=== PATIENT | male | born 1945 | race Caucasian/White ===

== ENCOUNTER → 2020-03-25 | Outpatient (CLI) | payer OTHER ==
[~2020-03-25] MED LIST: ATOR20 PO; CLON.1 PO; FURO40 PO; INSULANI SC; LEVFLO500 PO; LOSHYD PO; METF500 PO; METO50ER PO; POTA10T PO; VALS80 PO; VERA80 PO
[2020-03-25 18:48] LABS: Creatinine, Urine Random 57.8 mg/dL (27.00-270.00); Protein, Urine Random 47.3 mg/dL (0.0-11.9); Protein/Creat Ratio, Ur Random 0.8
== END | disposition home or self-care (01) ==
LOC: LAB 12:20 → LAB SHORT 12:20
PROVIDERS: Internal Medicine
DX: N18.32 Chronic kidney disease, stage 3b (principal)
CPT/HCPCS: 82570; 84156

== ENCOUNTER → 2020-12-10 | Outpatient (CLI) | payer OTHER | END | disposition home or self-care (01) | LOC: LAB SHORT 16:00 | DX: E11.29 Type 2 diabetes mellitus with other diabetic kidney complication (principal) | CPT/HCPCS: 82043 ==

== ENCOUNTER → 2020-12-23 | Outpatient (CLI) | payer OTHER | END | disposition home or self-care (01) | LOC: LAB SHORT 16:18 | DX: L08.0 Pyoderma (principal) | CPT/HCPCS: 87070; 87205 ==

== ENCOUNTER → 2020-12-30 | Outpatient (CLI) | payer OTHER ==
[2020-12-30 15:15] LABS: Creatinine, Urine Random 48.8 mg/dL (27.00-270.00); Protein, Urine Random 80.6 mg/dL (0.0-11.9); Protein/Creat Ratio, Ur Random 1.7
== END | disposition home or self-care (01) ==
LOC: LAB 13:28 → LAB SHORT 13:28
PROVIDERS: Internal Medicine
DX: N18.32 Chronic kidney disease, stage 3b (principal)
CPT/HCPCS: 82570; 84156

== ENCOUNTER 2021-07-22 13:22 | Inpatient (IN) | payer OTHER ==
[~2021-07-22] VITALS: Ht 167.6 cm; Wt 136.8 kg
[2021-07-22] MEDS ORDERED: HYDRA25 PO (14:20)
[2021-07-22] MEDS ORDERED: FARXIGA5 MG PO (14:21)
[2021-07-22] MEDS ORDERED: TORSE20 PO (14:21)
[2021-07-22] MEDS ORDERED: RYBELSUS7 MG PO (14:21)
[2021-07-22 14:32] LABS: BASOPHILS ABSOLUTE AUTO 0.12 K/mm3 (0.00-0.23); BASOPHILS PERCENT AUTO 1 % (0-2); EOSINOPHILS ABSOLUTE AUTO 0.06 K/mm3 (0.00-0.68); EOSINOPHILS PERCENT AUTO 0 % (0-6); Hematocrit 39.2 % (37.0-53.0); Hemoglobin 11.3 g/dL (13.5-17.5); IMMATURE GRAN PERCENT AUTO 1 % (0-1); LYMPHOCYTES ABSOLUTE AUTO 0.77 K/mm3 (0.84-5.20); LYMPHOCYTES PERCENT AUTO 3 % (21-46); MONOCYTES ABSOLUTE AUTO 0.83 K/mm3 (0.16-1.47); MONOCYTES PERCENT AUTO 3 % (4-13); Mean Corpuscular HGB 27.7 pg (26.0-34.0); Mean Corpuscular HGB Conc 28.8 g/dL (31.5-36.5); Mean Corpuscular Volume 96 fL (80-100); Mean Platelet Volume 10.3 fL (9.1-12.4); NEUTROPHILS ABSOLUTE AUTO 23.33 K/mm3 (1.96-9.15); NEUTROPHILS PERCENT AUTO 92 % (41-73); Platelet Count 273 K/mm3 (150-400); RDW Coefficient Variation 17.2 % (11.7-14.2); RDW Standard Deviation 60.1 fL (35.1-46.3); Red Blood Cell Count 4.08 M/mm3 (4.30-5.90); White Blood Cell Count 25.31 K/mm3 (4.00-11.30)
[2021-07-22 15:00] LABS: Albumin/Globulin Ratio 0.4 (0.8-1.8); Bilirubin, Total 0.4 mg/dL (0.1-1.0); Bun/Creatinine Ratio 20.5 (12.0-20.0); Calcium, Blood 8.3 mg/dL (8.5-10.1); Creatinine, Blood 4.05 mg/dL (0.60-1.20); Globulin, Blood 5.4 g/dL (2.2-4.0); Potassium, Blood 7.2 mmol/L (3.5-5.5); Total Protein, Blood 7.4 g/dL (6.4-8.2)
[2021-07-22 15:09] LABS: Influenza A Negative (NEGATIVE); Influenza B Negative (NEGATIVE)
[2021-07-22 17:54] LABS: SARS-Cov-2 (COVID-19) PCR, MMC NEGATIVE (NEGATIVE)
[2021-07-22 20:41] LABS: Albumin, Blood 2.1 g/dL (3.4-5.0); Anion Gap 8 mmol/L (6-16); Blood Urea Nitrogen 82 mg/dL (8-24); Bun/Creatinine Ratio 20.7 (12.0-20.0); CO2, Blood 20 mmol/L (21-32); Calcium, Blood 8.1 mg/dL (8.5-10.1); Chloride, Blood 105 mmol/L (98-108); Creatinine, Blood 3.97 mg/dL (0.60-1.20); Glomerular Filtration Rate 15 (60-); Glucose, Blood 123 mg/dL (70-99); Phosphorus, Blood 6.2 mg/dL (2.5-4.9); Potassium, Blood 6.6 mmol/L (3.5-5.5); Sodium, Blood 133 mmol/L (136-145)
[2021-07-22 23:57] LABS: Source, Urine Foley catheter
--- NOTE | 2021-07-23 | NUR ---
PT ARRIVES TO ROOM ICU 2 FROM ED AT 2323. PT SLIDE TRANSFERRED TO BED FROM [facility]. WITH MINIMINAL EXERTION, PT DESATURATES TO 85 PERCENT. DID INCREASE O2 FLOW TO 15 LITERS PER OXYMIZER TO MAINTAIN > 90 PERCENT SATURATION. WILL TITRATE DOWN ABLE. PT'S TO ROOM. UPDATE ON PT GIVEN TO . PT HAS MOANING/GRUNTING NOTED. STATES THAT THIS IS TYPICAL FOR PT DAY AND NIGHT. PT STATES THAT HIS LEGS HAVE BEEN PAINFUL FOR OVER 5 YEARS. NOTED: PT HAS OPEN AREAS IN SKIN WITH COARSE WRINKLES. ELEPHANT TYPE SKIN. WILL DO WOUND PICS. WILL REVIEW CHART AND PLAN OF CARE FOR THIS PT.
[2021-07-23 00:02] LABS: Bilirubin, Urine Neg (Neg); Blood, Urine 3+ (Neg); Glucose Qualitative, Urine Neg (Neg); Ketones, Urine Neg (Neg); Leukocyte Esterase, Urine 1+ (Neg); Nitrite, Urine Neg (Neg); Protein, Urine Neg (Neg); Urobilinogen, Urine NORM (Normal)
[2021-07-23 00:16] LABS: Appearance, Urine Clear (Clear); Color, Urine Yellow (P-Yellow)
[2021-07-23 00:17] LABS: Bacteria Few /hpf; Red Blood Cells, Urine 0-2 /hpf (0-2); Squamous Epithelial Cells Not Seen /hpf (Few)
[2021-07-23] MEDS ORDERED: Mirapex1 MG PO (00:27)
[2021-07-23] MEDS ORDERED: TOUJEO SOL300 UNIT/2 SC (00:35)
[2021-07-23] MEDS ORDERED: NOVOLOG FL100 UNIT/3 SC (00:37)
[2021-07-23] MEDS ORDERED: LOSARTAN POTAS100 M1 PO (00:39)
[2021-07-23 00:52] LABS: Creatinine, Blood 3.86 mg/dL (0.60-1.20); Potassium, Blood 6.3 mmol/L (3.5-5.5)
[2021-07-23 03:08] LABS: BASOPHILS ABSOLUTE AUTO 0.08 K/mm3 (0.00-0.23); BASOPHILS PERCENT AUTO 1 % (0-2); EOSINOPHILS ABSOLUTE AUTO 0.04 K/mm3 (0.00-0.68); EOSINOPHILS PERCENT AUTO 0 % (0-6); Hematocrit 36.8 % (37.0-53.0); Hemoglobin 10.9 g/dL (13.5-17.5); IMMATURE GRAN ABSOLUTE AUTO 0.05 K/mm3 (0.00-0.10); IMMATURE GRAN PERCENT AUTO 0 % (0-1); LYMPHOCYTES ABSOLUTE AUTO 0.92 K/mm3 (0.84-5.20); LYMPHOCYTES PERCENT AUTO 6 % (21-46); MONOCYTES ABSOLUTE AUTO 0.81 K/mm3 (0.16-1.47); MONOCYTES PERCENT AUTO 6 % (4-13); Mean Corpuscular HGB 27.9 pg (26.0-34.0); Mean Corpuscular HGB Conc 29.6 g/dL (31.5-36.5); Mean Corpuscular Volume 94 fL (80-100); Mean Platelet Volume 10.2 fL (9.1-12.4); NEUTROPHILS ABSOLUTE AUTO 12.78 K/mm3 (1.96-9.15); NEUTROPHILS PERCENT AUTO 87 % (41-73); Platelet Count 258 K/mm3 (150-400); RDW Coefficient Variation 17.2 % (11.7-14.2); RDW Standard Deviation 59.2 fL (35.1-46.3); White Blood Cell Count 14.68 K/mm3 (4.00-11.30)
[2021-07-23 03:26] LABS: Magnesium, Blood 2.6 mg/dL (1.6-2.4)
[2021-07-23 03:30] LABS: Anion Gap 9 mmol/L (6-16); Blood Urea Nitrogen 84 mg/dL (8-24); Bun/Creatinine Ratio 21.9 (12.0-20.0); CO2, Blood 22 mmol/L (21-32); Calcium, Blood 7.8 mg/dL (8.5-10.1); Chloride, Blood 103 mmol/L (98-108); Creatinine, Blood 3.84 mg/dL (0.60-1.20); Glomerular Filtration Rate 16 (60-); Glucose, Blood 130 mg/dL (70-99); Phosphorus, Blood 6.1 mg/dL (2.5-4.9); Potassium, Blood 6.1 mmol/L (3.5-5.5); Sodium, Blood 134 mmol/L (136-145); Vancomycin, Random 25.1 ug/mL
--- NOTE | 2021-07-23 05:20 | NUR ---
ORDER RECEIVED FOR CPAP. PT HAS CPAP AT HOME AND DOES NOT WEAR THIS. WHEN ASLEEP, PT DEMONSTRATES A VERY PRONOUNCED SLEEP APNEA. WITH CPAP, PT IS RESTING COMFORTABLY. NO DISTRESS TO NOTE. DR JACOB HAS BEEN INTERGAL IN MANAGING PT'S ELECTROLYTES AND FLUID BALANCE. HE HAS COME IN TO SEE PT. WILL CONTINUE TO MONITOR.
[2021-07-23 06:50] LABS: Albumin, Blood 1.9 g/dL (3.4-5.0); Anion Gap 8 mmol/L (6-16); Blood Urea Nitrogen 84 mg/dL (8-24); Bun/Creatinine Ratio 21.4 (12.0-20.0); CO2, Blood 27 mmol/L (21-32); Calcium, Blood 8.3 mg/dL (8.5-10.1); Chloride, Blood 102 mmol/L (98-108); Creatinine, Blood 3.92 mg/dL (0.60-1.20); Glomerular Filtration Rate 15 (60-); Glucose, Blood 122 mg/dL (70-99); Phosphorus, Blood 6.5 mg/dL (2.5-4.9); Sodium, Blood 137 mmol/L (136-145)
--- NOTE | 2021-07-23 09:22 | NUR ---
AM NOTE... ASSUMED CARE OF PT AT 0700, THE PT IS A&Ox 2 ABLE TO STATE HIS NAME AND AND THAT HE IS IN THE HOSPITAL. THE PT WAS ON CPAP WITH 10L BLEED IN WITH O2 SATS 90-94% L/S DIM T/O. THE PT IS IN ST IN THE LOW 100'S BP IS SOFT BUT STABLE WITH MAPS >65. THE PT'S BLE ARE VERY RED AND SWOLLEN WITH FLAKEY/CRACKED SKIN. THE BLE ARE VERY PAINFUL TO TOUCH. BT PRESENT AND HYPOACTIVE, ABD IS LARGE, SOFT AND NONTENDER TO PALPATION. THE PT'S VELASCO IS PATENT AND DRAINING TO GRAVITY. THE PT WAS SLEEPING WELL UNTIL APROX 0900 WHEN HE WOKE UP AND PULLED OFF THE CPAP MASK AND ATTEMPTED TO PULL THE REST OF THE LEADS OFF. THE PT'S O2 SATS DROPPED QUICKLY DOWN TO THE MID 80'S, THE CPAP MASK WAS PLACED BACK ON THE PT UNTIL HIS O2 SATS COULD RECOVER THEN HE WAS PLACED ON AN OXYMIZER AT 10L THIS WAS TITRATED DOWN TO 8L WITH O2 SATS >90%. WILL CONTINUE TO MONITOR.
[2021-07-23 11:04] LABS: Lactate Dehydrogenase (Ld),Bld 289 U/L (100-240)
[2021-07-23 11:08] LABS: Anion Gap 12 mmol/L (6-16); Blood Urea Nitrogen 84 mg/dL (8-24); Bun/Creatinine Ratio 22.7 (12.0-20.0); CO2, Blood 23 mmol/L (21-32); CPK Creatine Kinase 1167 U/L (39-308); Calcium, Blood 8.1 mg/dL (8.5-10.1); Chloride, Blood 101 mmol/L (98-108); Glomerular Filtration Rate 16 (60-); Glucose, Blood 105 mg/dL (70-99); Phosphorus, Blood 6.9 mg/dL (2.5-4.9); Potassium, Blood 5.9 mmol/L (3.5-5.5); Sodium, Blood 136 mmol/L (136-145)
--- NOTE | 2021-07-23 13:16 | NUR ---
AM NOTE: ASSUMED CARE OF PATIENT AT 0700. THE PT IS CURRENTLY IS ON CPAP WITH 10 LITERS OF O2 BEIG DILIVERED. THE PT IS ALERT AND ORIENTED AND IS ABLE TO FOLLOW COMMANDS. THE PT'S HR IS IN THE 100'S AND IS IN SINUS TACHYCARDIA; SBP ARE IN THE 100'S. THE PT TOOK HIS CPAP MASK OFF AND THE PT WAS PLACED ON AN OXIMIZER AT 8 L O2. THE PT HAS O2 LEVELS 90<, THE PT HAS A HX OF COPD. THE PT HAS SIGNIFICANT CELLULITIS ON THE BLE THAT CAUSES A LOT OF PAIN FOR THE PT. THE PT IS CONSTANTLY MOANING IN PAIN, AND THE PT'S STATES THAT THE MOANING IS NORMAL BEHAVIOR FOR THE PT PRIOR TO BEING IN THE HOSPITAL. THE PT WAS MEDICATED PER EMAR. THE PT HAS AN INDWELLING CATHETER IN PLACE, PATENT AN DRAINGING TO GRAVITY. AT 1130, THE PT RECIEVED A COMPLETE BED BATH AND LINEN CHANGE. PHOTOS WERE TAKEN OF ALL SKIN ISSUES THAT THE PT HAS HAD PRIOR TO ADMISSION. THE PT WAS ABLE TO PARTICIPATE IN BED MOBILITY A LITTLE [place] GRABBING THE SIDE RAILS. AFTER THE BED BATH, THE PT'S ENTERED THE ROOM AND WAS ABLE TO GIVE MORE INFOMATION REGADING THE PT'S BASELINE ABILITY TO COMPLETE ADL'S. THE STATES THAT THE PT RESIDES IN RECLINER IN THE LIVING ROOM AND ONLY GETS UP TO WALK TO THE RESTROOM. THE STATES THAT THE PT GETS FATIGUED EASILY WHEN AMBULATING LONG DISTANCES. THE PT STATES THAT HE HAS NO ASSISTIVE WALKING DEVICE. WILL CONTINUE TO MONITOR.
--- NOTE | 2021-07-23 16:12 | NUR ---
WOUND ASSESSMENT AND PHOTO IN HARD CHART. DRESSING ORDERS IN [facility]. REFERRAL TO WOUND CLINIC AFTER DC FOR FOLLOW UP CARE
--- NOTE | 2021-07-23 17:50 | NUR ---
SHIFT SUMMARY.... NO ACUTE NEGATIVE CHANGES NOTED THIS SHIFT. THE PT HAS BEEN ON 6L OXYMIZER FOR MOST OF THIS SHIFT, THIS WAS TITRATED DOWN FROM 10L AT THE START OF THIS SHIFT. THIS EVENING THIS WAS CHANGED TO A REGULAR NASAL CANNULA AT 5L WITH O2 SATS >90%. THE WOUND CARE NURSE CAME TO ASSESS THE PT AND PLACED WOUND CARE ORDERS AND DRESSINGS WERE PLACED PER THESE ORDERS. THE PT'S WAS AT THE BEDSIDE FOR MOST OF THIS SHIFT. BOTH PT AND HIS WERE EDUCATED ON THE IMPORTANCE OF THE PT DOING WHAT ADLs HE CAN DO ON HIS OWN TO HELP PERVENT FURTHER LOSS OF FUNCTION. THE PT HAS BEEN MEDICATED FOR PAIN PER EMAR, WHEN MEDICATED THE PT BECOMES DROWSY AND FALLS ASLEEP, CPAP PLACED ON THE PT WHILE SLEEPING. THE PT'S BPs CONTIUE TO BE A LITTLE SOFT BUT MAPS HAVE BEEN >60. CALL LIGHT IN REACH WILL CONTINUE TO MONITOR UNTIL REPORT IS GIVEN TO ONCOMING RN.
--- NOTE | 2021-07-23 18:30 | NUR ---
SHIFT SUMARRY: PT'S OXYGEN LEVELS HAVE BEEN TITRATED DOWN THROUGHOUT THE SHIFT TO 5 LITERS; THE PT SWITCHES BACK AND FORTH FROM THE NASAL CANNULA AND THE CPAP, DEPENDENT ON WHETHER HE IS SLEEPING. THE PT HAS HAD RR IN THE 20-24 AND THE O2 90<. THE PT HAS HAD SBP IN THE 100'S AND HR IN THE 100'S. THE PT HAD A BEDSIDE SWALLOW EVAL CONDUCTED THIS SHIFT AND PASSED. THE PT HAS BEEN SAFELY DRINKING WATER THROUGH A STRAW. AT MEAL TIMES, THE PT HAS NOT EATEN A LOT. THE PT HAS HYPERACTIVE BOWEL SOUNDS PRESENT AND THERE IS NO ABD TENDERNESS UPON PALPATION. THE PT CURRENTLY HAS AN INDWELLING CATHETER IN PLACE AND DRAINING TO GRAVITY. THE PT HAD A COMPLETE BED BATH AND LINEN CHANGE THIS SHIFT. AT THIS TIME, PICTURES OF ALL WOUNDS WERE TAKEN AND HAVE BEEN PLACED IN THE PT'S CHART. WOUND CARE CONSULT WAS PLACED AND YAAKOV SCHILLING CAME TO CONDUCT THE WOUND ASSESSMENT AND PLACE WOUND CARE REGIMEN IN PLACE. THE PT HAS CHRONIC PIN ASSOCIATED WITH CELLULITIS IN THE BLE. THE PT HAS LIMITED BED MOBILITY AND STRUGGLES TO PARTICIPATE IN PT CARE. PT'S AT BEDSIDE MOST OF THE AFTERNOON, AND ALL HER QUESTIONS WERE ANSWERED. WILL CONTINUE TO MONITOR UNTIL ONCOMING NIGHT NURSE.
--- NOTE | 2021-07-23 19:26 | NUR ---
ASSESSMENT/ASSUMED CARE PT SITTING UP IN BED WITH O2 AT 4 LITERS VIA CPAP. PT OPENS EYES TO PAINFUL STIMULI AND MOUTH CARE ONLY. NOT FOLLOWING INSTRUCTIONS. PT IS HYPOTENSIVE AND FLUID BOLUS IS INFUSING. STARTED ON LEVOPHED WILL TITIRATE PER MAP. LUNGS DECREASED THROUGHOUT. HEART RATE SINUS 80-90'S. GENERAL EDEMA NOTED. BT HYPOACTIVE. IV 20G TO RIGHT AC WITH 1/2 NS AT 50 ML/HR AND IV 20G TO LEFT FOREARM WITH NS BOLUS AND LEVOPHED. VELASCO CATH PATENT AND DRAINING CLEAR YELLOW URINE. REPOSITION TO RIGHT WITH HOB UP. BILAT LOWER EXT WITH DRSG FROM KNEES TO ANKLES INTACT. AT BEDSIDE. WILL CALL DR MILLAN REGARDING CENTRAL LINE PLACEMENT.
--- NOTE | 2021-07-23 19:52 | NUR ---
CALL TO MD CALL TO DR MILLAN REGARDING HYPOTENSION. LEVOPHED CURRENTLY UP TO 6 MCQ/MIN DUE TO BP 75/47 MAP 56. FLUID BOLUS COMPLETE. DR MILLAN COMING TO PLACE CENTRAL LINE.
--- NOTE | 2021-07-23 21:33 | NUR ---
PT SITTING UP IN BED WITH OXIMZER ON AT 6 LITERS TALKING WITH . BP IMPROVED AND PT MENTATION IMPROVED. PT ABLE TO FOLLOW INSTRUCTION AND SPEECH IS CLEAR AND APPROP.
--- NOTE | 2021-07-23 22:45 | NUR ---
PT PLACED ON CPAP WITH 6 LITERS O2. WENT HOME FOR THE NIGHT. PT ATE SNACK SANDWICH AND ICE CREAM
--- NOTE | 2021-07-23 22:55 | NUR ---
BP 96/40 MAP 56 HEART RATE 80. LEVOPHED UP TO 10 MCQ/MIN. NS 500 ML BOLUS STARTED
--- NOTE | 2021-07-23 23:31 | NUR ---
CALL TO DR NAJERA REGRADING LEVOPHED UP TO 12 MCQ/MIN AND PT HAS RECEIVED 1.5 LITER BOLUS. ORDER OBTAINED FOR VASOPRESSIN.
--- NOTE | 2021-07-24 00:15 | NUR ---
REASSESSMENT PT SLEEPING WITH CPAP ON. REPOSITIONED WITH LIFT. HOLDING ON STARTING VASOPRESSIN FOR NOW DUE TO BP 142/61 MAP 84. WILL CONT TO MONITOR. ORAL CARE DONE.
--- NOTE | 2021-07-24 01:28 | NUR ---
CPAP PT PULLED OFF CPAP. STATED,"I NEED A BREAK". PLACED ON OXMIZER AT 6 LITERS
--- NOTE | 2021-07-24 02:42 | NUR ---
PT MOANING AND C/O PAIN TO LEGS, MED WITH FENTANYL 25 MCQ. GEL PAD PLACED TO NOSE TO PROTECT FROM CPAP MASK. O2 INCREASE TO 10 LITERS VIA CPAP.
--- NOTE | 2021-07-24 02:43 | NUR ---
PAIN PT MOANING AND RESTLESS. MED WITH FENTANYL 25 MCQ
[2021-07-24 03:36] LABS: BASOPHILS ABSOLUTE AUTO 0.06 K/mm3 (0.00-0.23); BASOPHILS PERCENT AUTO 1 % (0-2); EOSINOPHILS ABSOLUTE AUTO 0.59 K/mm3 (0.00-0.68); EOSINOPHILS PERCENT AUTO 6 % (0-6); Hematocrit 34.6 % (37.0-53.0); Hemoglobin 10.4 g/dL (13.5-17.5); IMMATURE GRAN ABSOLUTE AUTO 0.04 K/mm3 (0.00-0.10); IMMATURE GRAN PERCENT AUTO 0 % (0-1); LYMPHOCYTES ABSOLUTE AUTO 1.21 K/mm3 (0.84-5.20); LYMPHOCYTES PERCENT AUTO 13 % (21-46); MONOCYTES ABSOLUTE AUTO 0.72 K/mm3 (0.16-1.47); MONOCYTES PERCENT AUTO 7 % (4-13); Mean Corpuscular HGB Conc 30.1 g/dL (31.5-36.5); Mean Corpuscular Volume 93 fL (80-100); NEUTROPHILS ABSOLUTE AUTO 7.06 K/mm3 (1.96-9.15); NEUTROPHILS PERCENT AUTO 73 % (41-73); Platelet Count 243 K/mm3 (150-400); RDW Standard Deviation 58.7 fL (35.1-46.3); Red Blood Cell Count 3.71 M/mm3 (4.30-5.90); White Blood Cell Count 9.68 K/mm3 (4.00-11.30)
[2021-07-24 03:55] LABS: Albumin, Blood 1.7 g/dL (3.4-5.0); Albumin/Globulin Ratio 0.3 (0.8-1.8); Bilirubin, Total 0.3 mg/dL (0.1-1.0); Bun/Creatinine Ratio 22.9 (12.0-20.0); Calcium, Blood 7.7 mg/dL (8.5-10.1); Creatinine, Blood 3.32 mg/dL (0.60-1.20); Globulin, Blood 4.9 g/dL (2.2-4.0); Magnesium, Blood 2.4 mg/dL (1.6-2.4); Potassium, Blood 4.5 mmol/L (3.5-5.5); Total Protein, Blood 6.6 g/dL (6.4-8.2)
--- NOTE | 2021-07-24 05:48 | NUR ---
PAIN TO LEGS PT C/O PAIN TO BILAT LOWER EXT WITH BURNING, ITCHING AND NUMBNESS. PT HAS BEEN MED WITH FENTANYL AND TYLENOL. CALL TO DR NAJERA, RECEIVED ORDER FOR GABAPENTIN 100MG BID WITH FIRST DOSE NOW.
--- NOTE | 2021-07-24 05:58 | NUR ---
SHIFT SUMMARY PT SITTING UP IN BED WATCHING TV. C/O PAIN TO BACK AND LOWER EXT DURING THE NIGHT. MED WITH FENTANYL, TYLENOL AND GABAPENTIN. REPOSITIONED Q2HRS. PT ON OXIMYZER 10 LITERS AT THIS TIME, SPO2 96%. USED CPAP MOST OF THE NIGHT WITH 4-10 LITERS O2. HEART RATE HAS BEEN 80-90'S WITH PVC'S. PT GIVEN 1.5 LITER BOLUS DURING THE NIGHT AND STARTED ON LEVOPHED DUE TO HYPOTENSION. LEVOPHED HAS BEEN UP TO 12 MCQ/MIN NOW TITRATED DOWN TO 6 MCQ/MIN MONITORING TO KEEP MAP GREATER THAN 65. CENTRAL LINE PLACED BY DR ANGEL FOR LEVOPHED WITHOUT DIFFICULTY. PT ON 1/2 NS AT 50 ML/HR, NS AT 10 ML/HR AND LEVOPHED AT 6 MCQ/MIN. VELASCO CATH PATENT DRAINING CLEAR YELLOW URINE. DRSG TO BILAT LOWER EXT INTACT. REPORT TO ON COMING NURSE
--- NOTE | 2021-07-24 09:38 | NUR ---
ASSUMED CARE OF PT, REPORT RCV'D FROM TONIE DOUGHERTY. PT AROUSES TO VERBAL STIMULATION, QUICKLY FALLS BACK TO SLEEP. ORIENTED TO SELF, PLACE, FOLLOWS COMMANDS WEAKLY. RESPONDS VERBALLY TO QUESTIONS, MUMBLED SPEECH. LIVESTOCK SHOWMAN CONSULTED PER DR. MONAE REQUEST. PT TAKEN OFF CPAP AND PLACED ON 5L NC, SATS> 90% AT THIS TIME. LEVOPHED DECREASED FROM 6 TO 5 MCG/MIN. VSS AT THIS TIME. SEE FULL SHIFT ASSESSMENT.
[2021-07-24 10:52] LABS: PCO2 Arterial 47.3 mmHg (35-45); PO2 Arterial 112 mmHg (80-100); pH Blood Arterial 7.33 (7.35-7.45)
--- NOTE | 2021-07-24 15:30 | NUR ---
[facility] RECEIVED FOR SUPPORT AND ADV CARE PLANNING ASSIST TO . EMR reviewed and case conferenced with pt's bedside RN prior to visit. Pt was being prepped for CT so and I visited in ICU guest area. exhibits and expresses extreme CG fatigue and burnout. 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 RN feels pt may be more demanding and less independent with ADL's when is present because she feels guilty and does what he asks, when at times, he could do more for himself independently, ie feeding himself. confirms this to me. Discussed short and shelter advanced care planning. She reports that pt wants CPR if needed. We discussed process of a code and the usual need for ventilation if cardiac function restored. started shaking her head no and said no ventilator. Time spent listening, supporting, encouraging self care, including maintaining job if that gave her some respite and stress reduction. I encouraged her to rest as much as possible while pt is in the hospital. We reviewed best case and worst case scenarios from d/c with rehab services to difficult decision making. Booklet given, Hard Choices for [place] [employer]. I encouraged her to read Chap 1 on CPR to generate questions for providers and conversation with her re: what is best for him at this time. Plan made with for me to stop in daily for the next few days and thru the weekend. expressed appreciation for the visit and conversation and planned f/u visits. If pt returns home for ongoing homecare, will need respite. She states Jason thinks she should quit her job and become a paid caregiver. We talked about the requirements for that and meeting with a CM to explore community resources for assist at home. Pt is not a and they do not have medicaid, OHP or an APD tube filler at this time. She states they spoke with a volunteer at [facility] who did not believe they would qualify for medicaid but finances are a current worry as pt had become an online gambler. Plan to review with CM so they can visit and assist with d/c planning support also.
--- NOTE | 2021-07-24 16:00 | NUR ---
PT REPORTING BILATERAL LOWER EXTREMITY PAIN REQUESTING THIS NURSE REMOVE HIS BANDAGES. REVIEWED IMPORTANCE OF KEEPING LEGS CLEAN AND WRAPPED. MEDICATED PER EMAR WITH VERY LITTLE RELIEF. DR. TIMMONS AT BEDSIDE, REVIEWED NEUROPATHY PAIN. INCREASED GABAPENTIN TO 200 MG TID. REVIEWED PLAN WITH PT AND PT'S .
--- NOTE | 2021-07-24 17:14 | NUR ---
SHIFT SUMMARY PT MUCH MORE ALERT THIS AFTERNOON. PT CONTINUES TO REPORT UNCONTROLLED BILATERAL LEG PAIN HE DESCRIBES "BURNING". PT ON CPAP WITH PRESSURES 10-20, 3L BLEED IN WHILE SLEEPING/NAPPING AND 5LNC WHILE AWAKE. AT BEDSIDE T/O DAY. LEVOPHED @ 2 MCG/MIN TO MAINTAIN MAP>65. 1500 ML URINARY OUTPUT FROM CATHETHER. SEE PREVIOUS NOTES FROM THIS SHIFT. WILL REPORT TO ONCOMING NURSE.
--- NOTE | 2021-07-24 19:20 | NUR ---
ASSESSMENT/ASSUMED CARE PT SITTING UP IN BED WATCHING TV. C/O BEING CHINTAN, STATES,"I DIDN'T EAT DINNER BECAUSE I HAD VISITORS". PT GIVEN SANDWICH. LUNGS DECREASED THROUGHOUT ON 5 LITERS O2 VIA NC. ASSISTED WITH IS. RT GIVING PT EDUCATION REGARDING IS. HEART RATE REGULAR, BP STABLE ON LEVOPHED AT 2 MCQ/MIN WILL TITRATE TO KEEP MAP GREATER THAN 65. CENTRAL LINE TO RIGHT IJ DRSG COMING UP, WILL CHANGE DRSG. NS AT 10 ML/HR, LEVOPHED AT 2MCQ/MIN AND 1/2 NS AT 50 ML/HR VIA CENTRAL LINE. BT+ ABD OBESE, ROUND AND FIRM. DENIES N/V. IV 20G TO LEFT FOREARM SITE CLEAR, FLUSHED WITHOUT DIFFICULTY. VELASCO CATH PATENT DRAINING CLEAR YELLOW URINE. BILAT LOWER EXT WITH DRSG, WILL CHANGE DRSG THIS EVENING. PT REPOSITIONED WITH LIFE. AT BEDSIDE
--- NOTE | 2021-07-24 20:30 | NUR ---
RT EDUCATION RT WORKING WITH PT AND REGARDING COPD AND BREATHING EXERCISES.
--- NOTE | 2021-07-24 21:12 | NUR ---
DID CARDIOPULMONARY EDUCATION WITH PT AND SEE PROCESS INTERVENTION NOTE ON THIS PT AND ARE SEMI INTERESTED IN CARDIOPULMONARY REHAB AND WOULD LIKE TO DISCUSS FURTHER AT DISCHARGE.
--- NOTE | 2021-07-24 21:45 | NUR ---
DRSG CHANGES CENTRAL LINE DRSG CHANGE, SITE CLEAR. PT SHAVED. BILAT LOWER EXT DRSG CHANGED. LINEN CHANGED AND PT TURNED. GIVEN ANA PER REQUEST.
--- NOTE | 2021-07-24 22:47 | NUR ---
CPAP PT GOING TO SLEEP, PLACED ON CPAP WITH 5 LITERS O2.
[2021-07-25 04:36] LABS: BASOPHILS ABSOLUTE AUTO 0.07 K/mm3 (0.00-0.23); BASOPHILS PERCENT AUTO 1 % (0-2); EOSINOPHILS ABSOLUTE AUTO 1.01 K/mm3 (0.00-0.68); EOSINOPHILS PERCENT AUTO 11 % (0-6); Hematocrit 35.8 % (37.0-53.0); Hemoglobin 10.5 g/dL (13.5-17.5); IMMATURE GRAN ABSOLUTE AUTO 0.05 K/mm3 (0.00-0.10); IMMATURE GRAN PERCENT AUTO 1 % (0-1); LYMPHOCYTES ABSOLUTE AUTO 1.06 K/mm3 (0.84-5.20); LYMPHOCYTES PERCENT AUTO 12 % (21-46); MONOCYTES ABSOLUTE AUTO 0.77 K/mm3 (0.16-1.47); MONOCYTES PERCENT AUTO 9 % (4-13); Mean Corpuscular HGB 27.7 pg (26.0-34.0); Mean Corpuscular HGB Conc 29.3 g/dL (31.5-36.5); Mean Corpuscular Volume 95 fL (80-100); Mean Platelet Volume 10.1 fL (9.1-12.4); NEUTROPHILS ABSOLUTE AUTO 6.05 K/mm3 (1.96-9.15); NEUTROPHILS PERCENT AUTO 67 % (41-73); Platelet Count 243 K/mm3 (150-400); RDW Coefficient Variation 16.9 % (11.7-14.2); RDW Standard Deviation 58.3 fL (35.1-46.3); Red Blood Cell Count 3.79 M/mm3 (4.30-5.90); White Blood Cell Count 9.01 K/mm3 (4.00-11.30)
[2021-07-25 04:57] LABS: Albumin, Blood 1.7 g/dL (3.4-5.0); Anion Gap 7 mmol/L (6-16); Blood Urea Nitrogen 60 mg/dL (8-24); Bun/Creatinine Ratio 22.7 (12.0-20.0); CO2, Blood 27 mmol/L (21-32); Calcium, Blood 8.1 mg/dL (8.5-10.1); Chloride, Blood 105 mmol/L (98-108); Creatinine, Blood 2.64 mg/dL (0.60-1.20); Glomerular Filtration Rate 25 (60-); Glucose, Blood 141 mg/dL (70-99); Phosphorus, Blood 5.6 mg/dL (2.5-4.9); Potassium, Blood 4.5 mmol/L (3.5-5.5); Sodium, Blood 139 mmol/L (136-145)
--- NOTE | 2021-07-25 04:58 | NUR ---
PT OFF BIPAP AND ON 5 LITERS VIA NC. PT TAKING PO FLUIDS
--- NOTE | 2021-07-25 05:40 | NUR ---
SHIFT SUMMARY PT RESTING QUIETLY DURING THE NIGHT. TURNED Q2HRS USING CEILING LIFT. PT USED CPAP WITH 5 LITERS O2 DURING THE NIGHT. SPO2 95-100%. HEART RATE REGULAR IN THE 80-90'S. BP STABLE ON LEVOPHED, TITRATING TO KEEP MAP GREATER THAN 65. CURRENTLY LEVOPHED AT 4 MCQ/MIN VIA CENTRAL LINE. NS AT 10 ML/HR AND 1/2 NS AT 50 ML/HR VIA CENTRAL LINE. CENTRAL LINE DRSG CHANGED, SITE CLEAR. PT TAKING PO WITHOUT DIFFICULTY. VELASCO CATH PATENT DRAINING YELLOW URINE. BILAT LOWER EXT DRSG CHANGED SEE WOUND CARE. PT ENCOURAGED TO USE IS. RT GAVE EDUCATION REGARDING COPD, CHF AND PULM TOILET WITH PT AND . PT ENCOURAGED TO ASSIST WITH TURNING AND MOVING. PT MED ONCE DURING THE NIGHT WITH FENTANYL 50 MCQ FOR C/O PAIN "ALL OVER 12/01", WITH GOOD RESULTS. REPORT TO ON COMING NURSE
--- NOTE | 2021-07-25 10:42 | NUR ---
Case conferenced with RN and CM prior to visit and update also obtained per IDT ICU meeting. at bedside appears more rested and relaxed. Pt in chair eating breakfast and conversant. He is alert and oriented but demonstrates poor memory regarding medications explained and given to him earlier this am per RN. Pt reports severe burning pain of leatha LE that limits his ability to be more mobile. Review of EMR and eMAR with RN shows pt was started on gabapentin this admission with an increase in dosing tid since start of RX. Pt also has tylenol and narcotic orderded for pain that has been utilized early this am prn per eMAR. I reviewed medications for comfort with pt and also fluid intake allowed. Pt likes to drink a lot of water. He is not on a fluid restriction currently and lab indicators, clinical indicators show CHF is improved since admission. Pt given permission to consume 6-8 8oz glasses of water currently per nursing with caveat that those amounts could change depending on status of CHF, kidneys. Pt and verbalized understandin. Time spent encouraging pt to be more mobile and participatory with therapy, care and independence where possible. Pt appears to be in good mood and more willing today. Spoke to CM about researching community resorces with and possible medicaid application to assist with care at home. Planned with pt/ to visit daily t/o weekend.
--- NOTE | 2021-07-25 18:32 | NUR ---
SUMMARY Neuro: Pt is A&O x 4, however forgetful at times. Pleasant and cooperative with care. Pt reports that his BLE pain is gone this afternoon. Pt states relief from tylenol. Afebrile. Musculoskeletal: Moves all extremities. Worked with PT/OT, in bed and in recliner mobility. Up to recliner using ceiling lift this AM and pt remains in recliner at this time. Offered to lift pt back to bed, however pt states that he is most comfortable in the recliner. Repositioned Q2H, or more often if pt requests it for management of leg pain. Respiratory: Remains on 5 LPM NC. No cough noted. Lungs clear, diminished. Pt has been using incentive spirometer independently this shift. Cardiac: SR per monitor. BP stable. Levophed off at 1700. Midodrine started today. Central line remains in place. GI: No BM today. Tolerating diet well. : Excellent urine output today. Skin: Unchanged from initial assessment. Wound care done during slot shift manager. Dressings C/D/I. Psychosocial: Pt visiting with spouse at bedside for majority of shift. Pt pleasant and cooperative with staff.
--- NOTE | 2021-07-25 20:44 | NUR ---
Assumed Care. AOx3. Able to make needs known. Pain 8/10 in BLE and buttocks. Will medicate per EMAR. Discussed pain management with Dr. Selby. Will restart his mirpex. In chair with feet elevated, does not want to go back to bed tonight. Will do repositioning in chair. Diminished LS t/o. Sats >95%. Occational cough, non-productive. SOB with movement. Sinus Tach with rate 100-110's. BP WNL, Denies CP, palpitations, dizziness. Removed off bedpan, very large soft brown BM noted. cleansed and powder applied to redness in gluteal folds, groin, and panus area. There are several open skin areas under the testicles which are open to air. Cath care completed. dark yellow urine noted. Dressings to BLE with drainage to the Right and scant amount on the left. Dressings will be changed tonight. Repositioned, call light given.
[2021-07-26 03:41] LABS: BASOPHILS ABSOLUTE AUTO 0.05 K/mm3 (0.00-0.23); BASOPHILS PERCENT AUTO 1 % (0-2); EOSINOPHILS ABSOLUTE AUTO 0.86 K/mm3 (0.00-0.68); EOSINOPHILS PERCENT AUTO 10 % (0-6); Hematocrit 34.5 % (37.0-53.0); Hemoglobin 10.2 g/dL (13.5-17.5); IMMATURE GRAN ABSOLUTE AUTO 0.05 K/mm3 (0.00-0.10); IMMATURE GRAN PERCENT AUTO 1 % (0-1); LYMPHOCYTES ABSOLUTE AUTO 0.87 K/mm3 (0.84-5.20); LYMPHOCYTES PERCENT AUTO 10 % (21-46); MONOCYTES ABSOLUTE AUTO 0.75 K/mm3 (0.16-1.47); MONOCYTES PERCENT AUTO 9 % (4-13); Mean Corpuscular HGB 27.6 pg (26.0-34.0); Mean Corpuscular HGB Conc 29.6 g/dL (31.5-36.5); Mean Corpuscular Volume 94 fL (80-100); Mean Platelet Volume 10.2 fL (9.1-12.4); NEUTROPHILS ABSOLUTE AUTO 5.85 K/mm3 (1.96-9.15); NEUTROPHILS PERCENT AUTO 69 % (41-73); Platelet Count 234 K/mm3 (150-400); RDW Coefficient Variation 16.6 % (11.7-14.2); RDW Standard Deviation 57.1 fL (35.1-46.3); Red Blood Cell Count 3.69 M/mm3 (4.30-5.90); White Blood Cell Count 8.43 K/mm3 (4.00-11.30)
[2021-07-26 04:00] LABS: Bun/Creatinine Ratio 27.6 (12.0-20.0); Calcium, Blood 8.2 mg/dL (8.5-10.1); Creatinine, Blood 2.1 mg/dL (0.60-1.20); Potassium, Blood 4.6 mmol/L (3.5-5.5)
--- NOTE | 2021-07-26 05:32 | NUR ---
Shift Summary: AOx3, Cooperative. Able to make needs known. Was up in chair till midnight then transferred back to bed. Neuropathy and chronic pain to back and BLE. Medicated with Tylenol twice this shift. Restarted Mirpex. LS Diminished t/o. Resp E/U, Sats maintained >95% on 5 L of O2 via NC or CPAP with bleed in. No Cough noted. SOB with minimal exertion. Sinus Tach rate low 100's. No CP, Palpitations noted. BLE edema 3+. ABD soft, distention normal per patient. Large soft BM noted. Catheter with 825cc output this shift. Redness to panus, gluteal folds, and groin. Powder applied. There are scattered open shallow wounds in groin area open to air. Dressings to BLE changed, Venous status ulcers with pink granulation, plaque buildup to surrounding tissues. IVF 1/2 NS at 50cc and NS TKO infusing. No other changes to report, call light remains in reach. Will report to dayshift.
--- NOTE | 2021-07-26 13:24 | NUR ---
REASSESSMENT PT HAS BEEN RESTINGIN BED THOUGHOUT THE MORNING. HE WAS PRETTY SLEEPY THIS MORNING, BUT SLOWLY WOKE UP AND WAS APPROPRIATE TO EAT BREAKFAST. ONCE HIS SO WAS HERE SHE SAID IT IS NORMAL FOR HIM TO TAKE A LONG TIME TO WAKE UP AFTER SLEEPING. HIS BP WAS LOW AT THE START OF SHIFT BUT IMPROVED WITH MIDODRINE. HIS OXYGEN LEVELS INCREASED THIS MORNING WELL REQUIRING 10L VIA HIGH FLOW NC WITH SPO2 ONLY 89%, BUT IMPROVED ONCE BACK ON CPAP WITH 5L BLEED IN TO 94%. LUNGS ARE CLEAR, DIM. MEDICATED ONCE WITH TYLENOL FOR PAIN IN HIS LEGS AND REPOSITIONED PT REQUESTED FOR PAIN CONTROL IN HIS LEGS AND BACK. PT IS BACK ON 9L HIGH FLOW NC FOR LUNCH WITH SPO2 95%. WILL TITRATE DOWN ABLE.
--- NOTE | 2021-07-26 13:50 | NUR ---
f/u visit made to pt and . Pt reports much improved level of pain management for his lower legs and L knee. at bedside. Pt states he is working with PT and both pt/ verbalize understanding that SNF/rehab is plan of care at d/c for pt to continue improving with strength, mobility, safey and independence at home. Pt less alert but woke easily when I spoke to him. He is oriented in our conversation and appropriate.
--- NOTE | 2021-07-26 16:47 | NUR ---
SHIFT SUMMARY PT WAS QUITE SLOW TO WAKE UP THIS MORNING, BUT HAS BEEN MORE AWAKE THIS AFTERNOON, PARTICIPATING IN THE PHYSICAL THERAPY AND WATCHING TV WITH HIS AT HIS BEDSIDE. HE HAS BEEN MAINTAINING SPO2 IN THE LOW 90S WITH 9L/NC. BP HAS MAINTAINED WITHOUT THE USE OF PRESSORS. REMAINS SR IN THE 90S. EATING ABOUT HALF OF HIS MEALS TODAY. ONE BM. TOLERATED DRESSING CHANGES TO LEGS WELL. REFUSED BATH BUT LET US WASH HIS BACK WHEN HE HAD A BM AND CHANGED HIS LINEN. CONTINUING TO MONITOR.
--- NOTE | 2021-07-26 20:00 | NUR ---
Assumed Care. AOx3, more alert today then yesterday. Able to make needs known. States very uncomfortable and painful. Boosted up in bed, linen changed. Med BM Noted. Coccyx breakdown is improving. Area of openess has decreased, redness has improved. Powder was applied. LS diminished, tight, on 9L of 02NC to keep sats >95%. Mild Cough weak. Sinus on monitor, rate in the 90's. Edema to BLE 3+. Abd soft, BT x4. Cath care completed, yellow urine output. Dressings changed to BLE, decrease in redness noted, Wounds continue to show signs of improvement. BS 180's. 1 unit of sliding scale given with long acting. Medicated for pain. will continue to monitor. Call light in reach.
--- NOTE | 2021-07-26 21:50 | NUR ---
Pt falling asleep continues to pull o2 off, sats dropped several times in the high 80's. Repositioned up in bed, placed on CPAP for the night with 5 liters of bleed in.
--- NOTE | 2021-07-26 23:05 | NUR ---
Pt started to desat again on 5 liter bleed into CPAP. Increased to 9 liters to keep sats >90%. Resp are shallow while he is asleep, apnea periods are noted.
[2021-07-27 04:21] LABS: Hematocrit 33.6 % (37.0-53.0); Hemoglobin 9.8 g/dL (13.5-17.5); Mean Corpuscular HGB 27.6 pg (26.0-34.0); Mean Corpuscular HGB Conc 29.2 g/dL (31.5-36.5); Mean Corpuscular Volume 95 fL (80-100); Mean Platelet Volume 9.8 fL (9.1-12.4); Platelet Count 240 K/mm3 (150-400); RDW Coefficient Variation 16.5 % (11.7-14.2); RDW Standard Deviation 57.5 fL (35.1-46.3); Red Blood Cell Count 3.55 M/mm3 (4.30-5.90); White Blood Cell Count 8.77 K/mm3 (4.00-11.30)
[2021-07-27 04:38] LABS: Bun/Creatinine Ratio 25.6 (12.0-20.0); Calcium, Blood 8.4 mg/dL (8.5-10.1); Creatinine, Blood 1.95 mg/dL (0.60-1.20); Magnesium, Blood 2.2 mg/dL (1.6-2.4); Phosphorus, Blood 3.9 mg/dL (2.5-4.9); Potassium, Blood 4.6 mmol/L (3.5-5.5)
[2021-07-27 05:42] LABS: BASOPHILS ABSOLUTE MAN 0.08 K/mm3 (0.00-0.23); BASOPHILS PERCENT MAN 1 % (0-2); EOSINOPHILS ABSOLUTE MAN 0.35 K/mm3 (0.00-0.68); EOSINOPHILS PERCENT MAN 4 % (0-6); LYMPHOCYTES ABSOLUTE MAN 0.87 K/mm3 (0.84-5.20); LYMPHOCYTES PERCENT MAN 10 % (21-46); MONOCYTES PERCENT MAN 8 % (4-13); MYELOCYTE ABSOLUTE MAN 0.17 K/mm3 (0.00-0.00); MYELOCYTE PERCENT MAN 2 % (0-0); NEUTROPHILS ABSOLUTE MAN 6.57 K/mm3 (1.96-9.15); SEG NEUTROPHILS PERCENT MAN 75 % (41-73); TOTAL CELLS COUNTED 100
--- NOTE | 2021-07-27 06:36 | NUR ---
SHIFT SUMMARY: AOx3, fatiqued, weak. Follows direction well. LS diminished t/o. On 9 Liters of O2 HF NC. Did have to increase to 9liter bleed in on CPAP as well to keep sats above 90%. SOB with exertion. Cough non-productive. Shallow breathing t/o the noc. Sinus on monitor, few PVC's. BLE edema 3+. No chest pain noted. Abdomin soft, BT very active. 2 very large soft stools noted, leading to complete bed bath and bed change. Wounds on bottom and groin continue to improve. Dressings changed to BLE also continue to look better. Gomez yellow urine output 775. Vitals all stable. Pain managed with tylenol. Call light in reach. bed in low position. Will report to dayshift.
--- NOTE | 2021-07-27 10:46 | NUR ---
Review of EMR. Pt sound asleep when I stopped by to visit. is not in to visit yet. Will attempt visit later today. Pt's neurontin dosing decreased during day due to increased somnolence and SE.
--- NOTE | 2021-07-27 11:16 | NUR ---
F/u visit. Pt asleep, startled awake when I placed my hand on his but quickly went back to sleep. at bedside. She stated Jason told her she was late when she came in and she was indeed later arriving than usual. Discussed need for increased time OOB, deep breathing, incentive spirometer use and mobility. PT has ARIS at baseline but is not compliant wtih his CPAP use at home. unsure if they even have one at home. Discussed the risks of untreated ARIS and increase in s/s due to pt's somnolence, weight of chest, body habitus. inquired about d/c timeframe. In review of EMR pt is not medically ready for d/c yet. RN in room and confirmed this r/t increased O2 needs. Even with Bipap in place, pt is requiring 9L. Reinforced need for ongoing PT/OT partcipation and probable rehab stay prior to returning home. states when pt is able to stand and walk she could resume home care.
--- NOTE | 2021-07-27 12:07 | NUR ---
REASSESSMENT PT HAS BEEN QUITE SLEEPY AGAIN THIS MORNING. AT THE START OF SAHIFT HE WAS DESTURATING ON 9L HIGH FLOW WHILE SLEEPING SO PLACED HIM BACK ON CPAP. AT BREAKFAST TIME TOOK PT OFF CPAP AND NOTICED PURPLE DISCOLORATION ON THE R SIDE OF PT'S NOSE. PICTURE TAKEN AND PLACED IN CHART. GOT PT UP TO CHAIR WITH LIFT AND PT WAS ALERT ENOUGH TO BE SAFE TO EAT BREAKFAST. AFTER BREAKFAST PT FELL BACK ASLEEP AND SLEPT UNTIL ABOUT 1100. PT COMPLAINING OF PAIN IN HIS LEGS. GABAPENTIN REDUCED BY DR. SHIRLEY BECAUSE OF PT'S DROWSINESS. TYLENOL GIVEN. LUNGS CONTINUE TO BE CLEAR BUT DIM. SR, BP STABLE TODAY. VELASCO DRAINING CL YELLOW URINE. AT BEDSIDE AND WAS UPDATED BY NURSING STAFF. DR. SHILREY GAVE OK FOR PT TO BE PCU STATUS.
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
--- NOTE | 2021-07-27 20:48 | NUR ---
Assumed Care. Alert, left for the night. LS clear diminished in bases. Sats >92% on 7 liters. Dry cough. Right side of nostril skin breakdown and bruising from CPAP. Discussed management better tonight as he continued to pull mask off last night or twisted it. Sinus on monitor, rate in the 80's. Large soft bm noted. linen change and partial bedbath given. Attends placed. Dressings to BLE intact and dry at this time. C/o pain after movement and repositioning. Tylenol given. Skin breakdown on coccyx and groin almost healed. Ice water given. Warm blanket given. Vitals WNL at this time. Call light in reach. Bed in low position.
--- NOTE | 2021-07-28 03:00 | NUR ---
PATIENT TRANSFERRED TO PCU 1, REPORT GIVEN. GLASSES WENT WITH PATIENT. NO OTHER BELONGINGS WERE NOTED IN ROOM.
[2021-07-28 11:48] LABS: Influenza A, PCR NEGATIVE (NEGATIVE); Influenza B, PCR NEGATIVE (NEGATIVE); Resp Syncytial Virus, PCR NEGATIVE (NEGATIVE); SARS-Cov-2 (COVID-19) PCR, MMC NEGATIVE (NEGATIVE)
[2021-07-28] MEDS ORDERED: Acetaminophen650 M1 PO (12:58)
[2021-07-28] MEDS ORDERED: CLOT10 MT (12:58)
[2021-07-28] MEDS ORDERED: LACT PO (12:59)
[2021-07-28] MEDS ORDERED: MIDODRINE HCL10 M1 PO (12:59)
[2021-07-28] MEDS ORDERED: Neurontin 100100 MG PO (12:59)
[2021-07-28] MEDS ORDERED: CEPH500 PO (12:59)
[2021-07-28] MEDS ORDERED: HUMULIN R100 UNIT/2 SC (13:00)
[2021-07-28] MEDS ORDERED: ANTIFUNGAL POWD71 GM TOP (13:01)
--- NOTE | 2021-07-28 15:48 | NUR ---
DISCHARGE SUMMARY: PATIENT WAS PLACED IN LIFT AND TRANSFERRED IN LIFT TO WHEELCHAIR FOR [facility]SP[facility]. PATIENT WAS AFEBRILE, DENIES CHEST PAIN OR PRESSURE, PATIENT AGREEABLE TO PLAN WITH BOTH MYSELF AND CASE MANAGEMENT SPENTING LARGE AMOUNTS OF TIME EXPLAINING SITUATION AND AWARE WELL. IV'S REMOVED, WOUND CARE PROVIDEED. WAS BATHED THIS AM, PERSONAL BELONGINGS WITH .
== END 2021-07-28 15:48 | DRG 871 ==
LOC: ER 13:22 → ICUE 19:57 → PCU 19:57 → ICUE 23:24 → PCU 07-28 03:07
PROVIDERS: Emergency Medicine; Internal Medicine; Internal Medicine Critical Care Medicine; Internal Medicine Nephrology; ADMIT Internal Medicine
PROC: 3E033XZ Introduction of Vasopressor into Peripheral Vein, Percutaneous Approach (ICD-10-PCS; principal; 2021-07-23)
PROC: 3E03329 Introduction of Other Anti-infective into Peripheral Vein, Percutaneous Approach (ICD-10-PCS; 2021-07-23)
PROC: 02HV33Z Insertion of Infusion Device into Superior Vena Cava, Percutaneous Approach (ICD-10-PCS; 2021-07-23)
PROC: 5A09357 Assistance with Respiratory Ventilation, Less than 24 Consecutive Hours, Continuous Positive Airway Pressure (ICD-10-PCS; 2021-07-25)
DX: A41.9 Sepsis, unspecified organism (principal); R65.21 Severe sepsis with septic shock; G92.8 Other toxic encephalopathy; J96.21 Acute and chronic respiratory failure with hypoxia; N17.0 Acute kidney failure with tubular necrosis; L03.115 Cellulitis of right lower limb; L03.116 Cellulitis of left lower limb; B37.0 Candidal stomatitis; J44.1 Chronic obstructive pulmonary disease with (acute) exacerbation; I13.0 Hypertensive heart and chronic kidney disease with heart failure and stage 1 through stage 4 chronic kidney disease, or unspecified chronic kidney disease; I50.32 Chronic diastolic (congestive) heart failure; N18.4 Chronic kidney disease, stage 4 (severe); Z68.42 Body mass index [BMI] 45.0-49.9, adult; E87.2 Acidosis; G47.33 Obstructive sleep apnea (adult) (pediatric); E87.5 Hyperkalemia; R53.81 Other malaise; E11.22 Type 2 diabetes mellitus with diabetic chronic kidney disease; E78.5 Hyperlipidemia, unspecified; D72.829 Elevated white blood cell count, unspecified; I95.9 Hypotension, unspecified; E86.0 Dehydration; E66.01 Morbid (severe) obesity due to excess calories; D63.1 Anemia in chronic kidney disease; I89.0 Lymphedema, not elsewhere classified; Z20.822 Contact with and (suspected) exposure to COVID-19; R79.89 Other specified abnormal findings of blood chemistry; Z99.81 Dependence on supplemental oxygen; Z88.0 Allergy status to penicillin; Z88.8 Allergy status to other drugs, medicaments and biological substances; Z79.899 Other long term (current) drug therapy; Z79.4 Long term (current) use of insulin; Z79.84 Long term (current) use of oral hypoglycemic drugs; Z98.890 Other specified postprocedural states; E11.42 Type 2 diabetes mellitus with diabetic polyneuropathy; G47.53 Recurrent isolated sleep paralysis; I87.8 Other specified disorders of veins; S81.802A Unspecified open wound, left lower leg, initial encounter; S81.801A Unspecified open wound, right lower leg, initial encounter; X58.XXXA Exposure to other specified factors, initial encounter; Z91.19 Patient's noncompliance with other medical treatment and regimen; Z79.02 Long term (current) use of antithrombotics/antiplatelets; I50.810 Right heart failure, unspecified
CPT/HCPCS: 0241U; 36415; 36556; 36600; 71045; 76770; 78580; 80048; 80053; 80069; 80202; 81001; 82550; 82570; 82803; 82947; 83605; 83615; 83735; 83880; 84100; 84145; 84156; 84484; 85025; 87040; 87086; 87804; 93005; 93010; 94640; 94660; 94664; 94667; 94762; 96361; 96365; 96366; 96375; 97110; 97162; 97166; 97530; 99285-25; A9270; A9540; C1751; C8929; J0690; J0696; J1644; J1815; J2270; J3010; J3370; J7030; J7040; J7060; J7070; Q9957; U0004

== ENCOUNTER 2021-08-15 11:00 | Inpatient (IN) | payer OTHER ==
[~2021-08-15] VITALS: Ht 167.6 cm; Wt 128.6 kg
[~2021-08-15 11:00] MED LIST changes: +ANTIFUNGAL POWD71 GM TOP; +ATOR10 PO; -ATOR20 PO; +Acetaminophen650 M1 PO; +CEPH500 PO; +CLOT10 MT; +FARXIGA5 MG PO; +HUMULIN R100 UNIT/2 SC; +HYDRA25 PO; +LACT PO; +LOSARTAN POTAS100 M1 PO; +MIDODRINE HCL10 M1 PO; +Mirapex1 MG PO; +NOVOLOG FL100 UNIT/3 SC; +Neurontin 100100 MG PO; +RYBELSUS7 MG PO; +TORSE20 PO; +TOUJEO SOL300 UNIT/2 SC
[2021-08-15 11:29] LABS: BASOPHILS ABSOLUTE AUTO 0.07 K/mm3 (0.00-0.23); BASOPHILS PERCENT AUTO 1 % (0-2); EOSINOPHILS ABSOLUTE AUTO 0.36 K/mm3 (0.00-0.68); EOSINOPHILS PERCENT AUTO 5 % (0-6); IMMATURE GRAN ABSOLUTE AUTO 0.02 K/mm3 (0.00-0.10); IMMATURE GRAN PERCENT AUTO 0 % (0-1); LYMPHOCYTES ABSOLUTE AUTO 1.62 K/mm3 (0.84-5.20); LYMPHOCYTES PERCENT AUTO 22 % (21-46); MONOCYTES ABSOLUTE AUTO 0.68 K/mm3 (0.16-1.47); MONOCYTES PERCENT AUTO 9 % (4-13); Mean Corpuscular HGB 27.8 pg (26.0-34.0); Mean Corpuscular HGB Conc 29.7 g/dL (31.5-36.5); Mean Corpuscular Volume 93 fL (80-100); Mean Platelet Volume 10.3 fL (9.1-12.4); NEUTROPHILS ABSOLUTE AUTO 4.67 K/mm3 (1.96-9.15); NEUTROPHILS PERCENT AUTO 63 % (41-73); Platelet Count 222 K/mm3 (150-400); RDW Coefficient Variation 17.6 % (11.7-14.2); RDW Standard Deviation 61.2 fL (35.1-46.3); Red Blood Cell Count 3.96 M/mm3 (4.30-5.90); White Blood Cell Count 7.42 K/mm3 (4.00-11.30)
[2021-08-15 11:48] LABS: Albumin, Blood 2.3 g/dL (3.4-5.0); Albumin/Globulin Ratio 0.5 (0.8-1.8); Bilirubin, Total 0.5 mg/dL (0.1-1.0); Bun/Creatinine Ratio 19.4 (12.0-20.0); Calcium, Blood 8.3 mg/dL (8.5-10.1); Creatinine, Blood 1.65 mg/dL (0.60-1.20); Globulin, Blood 4.8 g/dL (2.2-4.0); Potassium, Blood 4.9 mmol/L (3.5-5.5); Total Protein, Blood 7.1 g/dL (6.4-8.2)
[2021-08-15] MEDS ORDERED: TRAM50 PO (16:07)
[2021-08-15] MEDS ORDERED: ALBU90OI INH (16:07)
[2021-08-15] MEDS ORDERED: Aspir 8181 MG PO (16:08)
[2021-08-15] MEDS ORDERED: PRINIVIL5 M1 PO (16:08)
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
--- NOTE | 2021-08-16 06:27 | NUR ---
SHIFT SUMMARY: LEFT UPPER EXTREMITY CONTINUES TO HAVE WEAKNESS. TAKING PILLS ARE TAKEN WHOLE WITH WATER WITH NO DIFFICULTY. PATIENT IS INC. OF BOWEL AND BLADDER. WHEEL CHAIR BOUND AT BASELINE. DRSG'S TO BLE ARE CD&I. PLUS 3 HARD EDEMA, LEGS ARE ELEVATED.
[2021-08-16 10:46] LABS: PCO2 Arterial 63.5 mmHg (35-45); PO2 Arterial 58.5 mmHg (80-100)
[2021-08-16 10:52] LABS: Influenza A, PCR NEGATIVE (NEGATIVE); Influenza B, PCR NEGATIVE (NEGATIVE); Resp Syncytial Virus, PCR NEGATIVE (NEGATIVE); SARS-Cov-2 (COVID-19) PCR, MMC NEGATIVE (NEGATIVE)
[2021-08-16 10:56] LABS: BASOPHILS ABSOLUTE AUTO 0.07 K/mm3 (0.00-0.23); BASOPHILS PERCENT AUTO 1 % (0-2); EOSINOPHILS ABSOLUTE AUTO 0.25 K/mm3 (0.00-0.68); EOSINOPHILS PERCENT AUTO 3 % (0-6); Hematocrit 36.7 % (37.0-53.0); Hemoglobin 10.6 g/dL (13.5-17.5); IMMATURE GRAN ABSOLUTE AUTO 0.03 K/mm3 (0.00-0.10); IMMATURE GRAN PERCENT AUTO 0 % (0-1); LYMPHOCYTES ABSOLUTE AUTO 1.29 K/mm3 (0.84-5.20); LYMPHOCYTES PERCENT AUTO 17 % (21-46); MONOCYTES PERCENT AUTO 8 % (4-13); Mean Corpuscular HGB Conc 28.9 g/dL (31.5-36.5); Mean Corpuscular Volume 97 fL (80-100); Mean Platelet Volume 10.4 fL (9.1-12.4); NEUTROPHILS ABSOLUTE AUTO 5.54 K/mm3 (1.96-9.15); NEUTROPHILS PERCENT AUTO 71 % (41-73); Platelet Count 229 K/mm3 (150-400); RDW Coefficient Variation 17.6 % (11.7-14.2); RDW Standard Deviation 62.6 fL (35.1-46.3); Red Blood Cell Count 3.79 M/mm3 (4.30-5.90); White Blood Cell Count 7.78 K/mm3 (4.00-11.30)
[2021-08-16 11:26] LABS: Free Thyroxine 0.92 ng/dL (0.70-1.60); Thyroid Stimulating Hormone 1.65 uIU/mL (0.360-4.800)
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
--- NOTE | 2021-08-16 13:48 | NUR ---
TRANSFER PT TRANSFERRED TO PCU FROM ROOM 303. PT LETHARGIC AND NOT OPENING EYES TO VERBAL STIMULI. PT OPENS EYES AFTER THIS RN RUBS HIS CHEST. PT FALLING ASLEEP DURING CONVERSATION. DISCUSSED IMPORTANCE OF BIPAP USE TO PT. PT WILLING TO TRY, BUT REQUESTS ANTI-ANXIETY MEDICATION. PT TRANSITIONED FROM 8L HIGH FLOW NC TO BIPAP 20/10 WITH 7L BLEED IN. PT TOLERATING BIPAP AT THIS TIME. PALLIATIVE CARE CALLED AND AT BEDSIDE. PALLIATIVE CARE CALLING TO UPDATE. BP SOFT AND PT MEDICATED PER EMAR. BED ALARM ON FOR SAFETY. WILL CONTINUE TO MONITOR CLOSEY AND REPORT TO BLAS SCHILLING
--- NOTE | 2021-08-16 13:55 | NUR ---
Initial Pal Care visit. New CODE status: DNR per proxy/. Request for urgent visit received from Med floor RN just prior to pt's transfer to PCU rm 8. RN reports that pt is refusing care, including wearing bipap and he has become more somnolent with noted decline in LOC, orientation and resp status. Pt is well known to me from his most recent admission and stay in ICU. I visited him and his , Nina, daily while in ICU earlier this month. Pt has been at [facility] ([place], [place]) since that admission and was readmitted here yesterday due to new CVA. After update obtained from Medical floor RN, MANAGER ETL and EMR, report called to to update and address goals of care/code status confirmation. Pt had been a DO NOT Intubate on prior admission. When pt arrived in PCU, RN reviewed with pt that not wearing bipap may decrease resp drive. Pt stated he would be willing to wear bipap if he had medication for anxiety. Shortly after that he became more somnolent and staff were able to apply bipap without distress to pt. In conversation with I confirmed that she can come in to visit when she is 10 days past + covid test, which will be tomorrow. She states in light of pt's refusal of tx at times and new CVA, compounding many severe comorbidities and disability, she feels pt should not have CPR or intubation. She wants us to cont to attempt full tx to prevent a code event but if pt declines despite tx, she does not want a resuscitation effort employed. Called with report and 's request and VO for change in CODE status entered. Requested anti- anxiety agent per pt's request also. Awaiting call back.
--- NOTE | 2021-08-16 14:25 | NUR ---
ASSUMPTION OF CARE NOTE: ORNAMENTAL METAL WORKER RECIEVED PATIENT AND RECIEVED BEDSIDE REPORT, THAN GAVE ME REPORT ON PATIENT. PATIENT HAD BEEN SWITCHED FROM FULL CODE TO DNR/DNI, 7L BLEED INTO BIPAP / WITH A BASE RATE OF 16. SPO2 >90%. PATIENT VERY SLEEPY. DOES RESPOND TO VERBAL STIMULI, AND ANSWERS BUT QUICKLY BACK ASLEEP. PATIENT HAS PVD WITH BILATERAL LEG WOUNDS CURRENLTY COVERED IN KERLEX. PATIENT IN NO SIGN OF PAIN. DYSPHAGIA PRECAUTIONS, TELEMETRY ON, WELL CONTINUOUS PULSE OX. RATE IS 88 SR, RECIEVED TYLENOL, PATIENT IS SLEEPING WELL HOB >30 DEGREES. PATIENT WITH OBVIOUS SIGNS OF APNEA WHILE SLEEPING. IV FLUSHED WELL BY ORNAMENTAL METAL WORKER. TO STOP BY TONIGHT OR TOMORROW. SEEN BY ST PLEASE SEE NOTE FOR INSTRUCTIONS. PATIENT SEEN BY PALLIATIVE, WILL CONTINUE TO MONITOR UNTIL SHIFT CHANGE.
--- NOTE | 2021-08-16 18:42 | NUR ---
END OF SHIFT SUMMARY: ONLY CHANGES FROM ASSUMPTION OF CARE IS PATIENT IS MORE LETHARGIC, WHEN AWAKE AROUND 1500 HE WAS ALERT AND ORIENTED TO SELF ONLY. PATIENT WAS SO LETHARGIC HE WAS UNABLE TO WAKE UP TO SWALLOW A PILL, CALL TO PROVIDER WITH NO NEW ORDERS AT THIS TIME. CALLED AND WAS UPDATED OF SITUATION NO FURTHER CONCERNS FROM THIS MOLD FILLER. Q2 TURNS PREFORMED, NO ACUTE SIGNS OF DISTRESS OR PAIN OF ANY KIND AT THIS TIME SPO2 ON BIPAP 20/10 16 R 3L BLEED IN. SPO2>90% WILL CONTINUE TO MONITOR UNTIL SHIFT CHANGE.
--- NOTE | 2021-08-16 20:56 | NUR ---
ASSUMED CARE PT ALERT AT TIMES, WITH PAIN AND VERBAL STIMULI. HE WILL ATTEMPT TO OPEN EYES, REPORTS FEELING COLD, UNABLE TO ANSWER QUESTIONS. VITALS ARE STABLE AND IS ON BIPAP WITH 8L 02 BI. BRIEF IS DRY. REPOSITIONED. CALL LIGHT IS WITHIN REACH. BED ALARM IS ACTIVE.
--- NOTE | 2021-08-17 07:18 | NUR ---
SHIFT SUMMARY PT ALERT AND ORIENTED THIS MORNING. HE WAS OBTUNDED MOST OF SHIFT AND WOKE UP APPROX 0200. HE REFUSED TO BE BACK ON BIPAP. VITALS ARE STABLE AND SATS ARE >90% ON 8-9L NC. LEFT SIDE IS WEAK BUT HAS MOVEMENT. HE IS ABLE TO COMMUNICATE NEEDS. SITTING UPRIGHT PT HAS DRANK WATER WITH NO COUGH. CALL LIGHT IS WITHIN REACH. BED ALART ACTIVE.
[2021-08-17 08:42] LABS: Bun/Creatinine Ratio 19.8 (12.0-20.0); Calcium, Blood 8.5 mg/dL (8.5-10.1); Creatinine, Blood 1.67 mg/dL (0.60-1.20); Potassium, Blood 5.2 mmol/L (3.5-5.5)
[2021-08-17 08:59] LABS: PCO2 Arterial 55.8 mmHg (35-45); PO2 Arterial 72.3 mmHg (80-100); pH Blood Arterial 7.35 (7.35-7.45)
--- NOTE | 2021-08-17 17:01 | NUR ---
END OF SHIFT SUMMARY: PATIENT MENTATION HAS IMPROVED INCREDIBLY, AT BEDSIDE. PATIENT WENT FROM LAST EVENING TO BEING ALERT AND ORIENTED X 3-4. PATIENT HAS BEEN RECEPTIVE TO EDUCATION, NEEDS REASSURANCE ON SOME SUBJECTS OR PATHWAYS, BUT HAS BEEN MOTIVATED IN ORDER TO LEAVE SOONER. PATIENT STILL ON 7.5L VIA HIGH FLOW CANULA, LUNGS SOUNDS HAVE IMPROVED FROM YESTERDAY. HAS BEEN CHANGED TO MED NO TELE HE HAS BEEN SINUS RHYTHM, BLOOD PRESSURES HAVE INCREASED COMPARED TO PREVIOUS DAY. WOUND CARE DRESSING PREFORMED XEROFORM AND KERLEX. PATIENT HAS BEEN PLEASANT BUT STILL SKIRTS AND REFUSES THE BIPAP MOST OF THE DAY, EDUCATED HIM AND ON DISEASE PROCESS AND SYMPTOM MANAGEMENT FOR >60 MINUTES TODAY. PATIENT HAS BEEN ORIENTED ENOUGH TO USE THE CALL LIGHT APPROPRIATELY LET US KNOW WHEN A BM OR BRIEF CHANGE IS NEEDED. PATINET CBG'S HAVE BEEN GREAT TODAY ONLY NEEDING 1 UNIT THROUGH THE DAY. WILL CONTINUE TO MONITOR UNTIL SHIFT CHANGE.
--- NOTE | 2021-08-17 19:41 | NUR ---
CARE ASSUMPTION: PATIENT IN BED WITH 7.5L NC AND O2 SAT >94%. PATIENT EXPRESSED CONCERNS ABOUT WEARING CPAP AND REQUESTED HELP IN USING FOR 2 HRS AT A TIME WITH BREAKS. ALSO STATED HE NEEDS MORE HELP WITH URINAL THAN HAS BEEN GIVEN. BED LOW WITH CALL LIGHT IN REACH.
--- NOTE | 2021-08-18 00:21 | NUR ---
TRANSFER OF CARE: REPORT GIVEN TO YELENA SAMUEL RN. PATIENT TO BE TRANSFERRED TO [place] [id number].
--- NOTE | 2021-08-18 01:07 | NUR ---
U 05 TRANSFER TO ROOM 357. REPORT TAKEN FROM ROMMEL SCHILLING. PERSONAL BELONGINGS WITH PATIENT. HEAVY FOUR PERSON TRANSFER FROM BED TO BED. ON 7.5 L O2 NC. PLACED ON HUMIDIFIED CANISTER. AXOX 3 AND BEDREST, W/C BOUND. XEROFORM DRESSING/KERLIX TO BLE. PATIENT RESTING AT THIS TIME.
--- NOTE | 2021-08-18 04:35 | NUR ---
SHIFT SUMMARY PATIENT PCU TRANSFER. AXOX 3 BEDREST-W/C BOUND BASELINE. REPORTED INCONTINENT OF URINE NOT KNOWING HE ALREADY VOIDED WHEN HAD THE URGE. PATIENT REPORTS HE WOULD LIKE HELP WITH THE URINAL AT BEDSIDE. LEFT SIDE WEAKNESS. ON 7.5 L O2 HF. ABLE TO COMMUNICATE HIS NEEDS. VSS/AFEBRILE. DENIES PAIN, SOB, AND N/V. REPORTS NOT WANTING TO USE BIPAP AT THIS TIME. CALL LIGHT IN REACH. BED IN LOWEST POSITION. WILL CONTINUE TO MONITOR UNTIL DAY SHIFT NURSE ASSUMES CARE.
[2021-08-18 04:50] LABS: Base Excess Venous 6.3 mmol/L; Bicarbonate Venous 29.1 mmol/L (24.0-30.0); PCO2 Venous 52.9 mmHg (38-42); pH Blood Venous 7.38 (7.34-7.37)
[2021-08-18 05:14] LABS: Bun/Creatinine Ratio 19.3 (12.0-20.0); Calcium, Blood 8.5 mg/dL (8.5-10.1); Creatinine, Blood 1.4 mg/dL (0.60-1.20); Potassium, Blood 4.3 mmol/L (3.5-5.5)
--- NOTE | 2021-08-18 17:50 | NUR ---
SHIFT SUMMARY O.T. IN TO WORK WITH PT TODAY AND PT SAT ON SIDE OF BED FOR A SHORT PERIOD OF TIME. INCONTINENT/CONTINENT OF URINE. IN TO VISIT DURING LUNCH. TENTATIVE PLAN FOR DISCHARGE BACK TO [facility] TOMORROW. NO FACIAL DROOP NOTICED AND HAND WATER RECLAMATION SYSTEMS OPERATOR MOSTLY EQUAL BUT LEFT SIDE LESS MOBILE THAN R AND FEELS L LEG IS LESS STRONG THAN R BUT STRENGTH TEST MOSTLY EQUAL. DOZING THIS AFTERNOON. DRESSINGS INTACT TO LEGS.
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
[2021-08-19 13:43] LABS: CHOL/HDL RATIO 4.7; Cholesterol 121 mg/dL (50-200); HDL Cholesterol 26 mg/dL (>39); LDL/HDL RATIO 2.2; Low Density Lipoprotein Chol 58 mg/dL (0-110); Triglycerides 186 mg/dL (30-160); Very Low Density Lipoprot Chol 37 mg/dL (6-32)
--- NOTE | 2021-08-19 18:28 | NUR ---
SHIFT SUMMARY Belkys WORKED WITH PT THIS MORNING. PT REPORTS HE WAS ATTEMPTING TO SIDE STEP ALONGSIDE BED BUT HIS L LEG COLLAPSED UNDER HIM. DISCUSSED WITH PT IMPORTANCE OF WORKING WITH Zak. AND O.T. EVEN WHEN HE DOESN'T FEEL LIKE IT TO MAKE PROGRESS WITH HIS STRENGTHENING. EXPLAINED TO HIM IT APPEARED HE WASN'T MAKING PROGRESS AT [facility] QUICKLY ENOUGH AND IT WAS IMPORTANT FOR HIM TO CALLENGS HIHSELF EACH DAY TO IMPROVE FROM THE PREVIOUS DAY. RECLINER CHAIR BROUGHT TO ROOM FOR PT TO BE UP IN FOR THE DAY TOMORROW. DRESSINGS CHANGED TO BLE. FLAKING SKIN CLEANSED OFF IN PLACES WITH SOFT SPONGE. DARK RED SKIN IN SPOTS ON LOWER LEGS. PT SAYS THEY ARE MUCH IMPROVED FROM WHEN HE WAS HERE ON PREVIOUS ADMISSION.
--- NOTE | 2021-08-20 05:08 | NUR ---
SHIFT SUMMARY PT CONTINUES TO HAVE SOME LEFT SIDED DEFECITS. IS ABLE TO LIFT AND SQUEEZE WITH LEFT HAND BUT WITH SOME WEAKNESS. PT REMAINED IN BED THIS EVENING. COMPLAINS OF SOME PAIN IN LEFT KNEE BUT REPORTS IMPROVEMENT WITH LIDOCAINE PATCH. 4 L VIA NC. DECLINED TO WEAR BIPAP THIS EVENING. DRESSINGS TO BLE'S REMAINED C/D/I. VITAL SIGNS STABLE. PT SLEPT MUCH OF THE SHIFT. WOKE WITH A HEADACHE THIS AM. MEDICATED WITH TYLENOL. OTHERWISE PT HAD AN UNEVENTFUL NIGHT. WILL CONTINUE TO MONITOR.
--- NOTE | 2021-08-20 18:42 | NUR ---
PATIENT IS ALERT AND ORIENTED AND COOPERATIVE WITH CARE. PATIENT WORKED WITH PT THIS MORNING [facility]. STANDS TO USE THE URINAL WITH ASSISTANCE. 1-2 PERSON TRANSFER WITH CHARLY AND CHELSEY. C/O RIGHT KNEE PAIN MEDICATED PER EMAR. WILL CONTINUE TO MONITOR
--- NOTE | 2021-08-21 04:23 | NUR ---
SHIFT SUMMARY PATIENT HAD NO ACUTE CHANGES. AXOX 4 AND 1-2 ASSIST STAND PIVOT WITH FWW/GAIT BELT TO BSC. USES URINAL AT BEDSIDE. CBG 171. CARPENTER STRONG AND EQUAL. LEFT SIDE LESS MOBILE THAN RIGHT. ON 5L O2 N/C HUMIDIFIED. VSS/AFEBRILE. LIDOCAINE PATCH OFF LEFT KNEE. DENIES SOB AND N/V. PIV REMAINS INTACT. ON PHONE FIRST PART OF SHIFT WITH FAMILY. ABLE TO SLEEP ON/OFF T/O SHIFT. CALL LIGHT IN REACH. BED IN LOWEST POSITION. WILL CONTINUE TO MONITOR UNTIL DAY SHIFT NURSE ASSUMES CARE.
--- NOTE | 2021-08-21 17:25 | NUR ---
SHIFT SUMMARY PATIENT A&OX4. WEAKNESS L>R. REFUSED TO WORK WITH PT THIS AM. C/O KNEE PAIN. MEDICATED PER APR. WORKED WITH OT LATER ON, TOLERATED WELL. X-RAY OF KNEE DONE. DRESSING CHANGE DONE FOR BLE. ON 4L VIA NC SAT 96%. VSS. WILL CONTINUE TO MONITOR.
--- NOTE | 2021-08-22 04:39 | NUR ---
SHIFT SUMMARY PATIENT HAD NO ACUTE CHANGES. LEFT SIDE WEAKER THAN RIGHT FOR TRADE UNION SECRETARY OR HOLDING OBJECTS. REPORTED LEFT KNEE PAIN AND LIDOCAINE PATCH REMOVED FROM DAY SHIFT SCHEDULED. ON 5L O2 NC STATING LOW 90'S ON CONTINUOUS PULSE OXIMETRY. HARSH COUGH AND TESSALON 200 MG GIVEN PER EMAR. VSS/AFEBRILE. DENIES CHEST PAIN AND N/V. CALL LIGHT IN REACH. BED IN LOWEST POSITION. WILL CONTINUE TO MONITOR UNTIL DAY SHIFT NURSE ASSUMES CARE.
[2021-08-22 08:14] LABS: pH Blood Venous 7.39 (7.34-7.37)
[2021-08-22 08:15] LABS: Base Excess Venous 9.2 mmol/L; Bicarbonate Venous 31.4 mmol/L (24.0-30.0)
[2021-08-22 08:16] LABS: BASOPHILS ABSOLUTE AUTO 0.08 K/mm3 (0.00-0.23); BASOPHILS PERCENT AUTO 1 % (0-2); EOSINOPHILS ABSOLUTE AUTO 0.52 K/mm3 (0.00-0.68); EOSINOPHILS PERCENT AUTO 8 % (0-6); Hematocrit 37.6 % (37.0-53.0); Hemoglobin 11.3 g/dL (13.5-17.5); IMMATURE GRAN PERCENT AUTO 2 % (0-1); LYMPHOCYTES ABSOLUTE AUTO 1.15 K/mm3 (0.84-5.20); LYMPHOCYTES PERCENT AUTO 17 % (21-46); MONOCYTES ABSOLUTE AUTO 0.55 K/mm3 (0.16-1.47); MONOCYTES PERCENT AUTO 8 % (4-13); Mean Corpuscular HGB 27.6 pg (26.0-34.0); Mean Corpuscular HGB Conc 30.1 g/dL (31.5-36.5); Mean Corpuscular Volume 92 fL (80-100); Mean Platelet Volume 10.6 fL (9.1-12.4); NEUTROPHILS ABSOLUTE AUTO 4.38 K/mm3 (1.96-9.15); NEUTROPHILS PERCENT AUTO 65 % (41-73); Platelet Count 190 K/mm3 (150-400); RDW Coefficient Variation 17.2 % (11.7-14.2); RDW Standard Deviation 57.8 fL (35.1-46.3); White Blood Cell Count 6.78 K/mm3 (4.00-11.30)
[2021-08-22 08:35] LABS: Albumin, Blood 2.5 g/dL (3.4-5.0); Anion Gap 5 mmol/L (6-16); Blood Urea Nitrogen 19 mg/dL (8-24); Bun/Creatinine Ratio 14.4 (12.0-20.0); CO2, Blood 33 mmol/L (21-32); Calcium, Blood 8.6 mg/dL (8.5-10.1); Chloride, Blood 100 mmol/L (98-108); Creatinine, Blood 1.32 mg/dL (0.60-1.20); Glomerular Filtration Rate 57 (60-); Glucose, Blood 114 mg/dL (70-99); Phosphorus, Blood 4.1 mg/dL (2.5-4.9); Potassium, Blood 4.5 mmol/L (3.5-5.5); Sodium, Blood 138 mmol/L (136-145)
--- NOTE | 2021-08-22 19:08 | NUR ---
SHIFT SUMMARY A&OX4. REPORTED PT REFUSING BIPAP AT NIGHT. ENCOURAGED THE USE OF BIPAP AFTER BREAKFAST. PATIENT TOLERATED WELL AND TOOK A 3 HOUR NAP WITH IT ON. C/O L KNEE AND SHOULDER PAIN, MEDICATED PER APR. DRESSINGS C/D/I BLE, CHANGED YESTERDAY. ATTEMPTED TO GET PATIENT UP THIS AFTERNOON. PATIENT UNABLE TO BEAR VERY MUCH WEIGHT ON LEGS. PT WORKED WITH PATIENT LATER AND GOT UP TO CHAIR. OT WORKED WITH PATIENT WELL. REPORT GIVEN TO ONCOMING RN.
--- NOTE | 2021-08-23 00:15 | NUR ---
WAS COUGHING A LOT, O2 SATS DROPPED. TESSALON MICHELLE ADMINISTERED ORDERED. RT HOOKED UP CPAP AND CURRRENTLY RESTING QUIETLY WITH SATS IN THE 90'S. CALL LIGHT IN REACH
--- NOTE | 2021-08-23 04:18 | NUR ---
SPECIAL POLICE SUMMARY AT WAS ASSISTED WITH 2 PERSON AND A LIFT APPARATUS TO GET BACK TO BED FROM THE BEDSIDE CHAIR. VOICED HAD BEEN IN THE CHAIR FOR "EIGHT HOURS". WAS ON O2 AT 5L/MIN PER NC, BUT PLACED ON BIPAP WHEN IN THE BED HIS O2 SATS DROPPED IN THE 80'S DUE TO APPARENT SLEEP APNEA. CURENTLY RESTING QUIETLY WITH SATS IN THE 90'S. ASYMPTOMATIC. HOB ELEVATED. DRESSINGS OF BILAT LOWER LEGS INTACT. NEURO CHECKS DONE, LEFT SIDE WEAKER THAN RIGHT, SOME FACIAL DROOPING. DENIED LOSS OFFEELING IN ALL 4 EXT. CALL LIGHT IN REACH
--- NOTE | 2021-08-23 18:11 | NUR ---
SHIFT SUMMARY; DRESSING CHANGE TO BILATERAL LOWER EXTREMEITIES. CURLEX AND XEROFOAM AND ABDULLAHI WRAP TO BOTH LOWER LEGS. PAITENT TOLERATES WELL. PATIENT REFUSES TO SIT ON EDGE OF BED TODAY FOR PT. HE WILL ONLY DO LEG EXERCISES WHILE IN BED. PATIENT SAID HE WANTS TO GET UP TO CHAIR HOWEVER IS VERY UNSTEADY AND FELL YESTERDAY WHEN THEY TRIED TO GET HIM UP. PATIENT USES CALL LIGHT APPROPRIATELY TO MAKE HIS NEEDS KNOWN. HE IS NOT REALISTIC IN HIS RECOVERY EXPECTIONS FAR TIME FRAME. PATIENT FEELS THAT IF HE WENT HOME TOMORROW HE COULD STAND AND WALK TO BATHROOM AND USE A CANE TO GO UP AND DOWN STAIRS. AT THIS TIME HE IS UNABLE TO SWING HIS LEGS OVER SIDE OF BED AND IS UNABLE TO BEAR WEIGHT. HIS CHEM BG DO NOT REQUIRE COVERAGE TODAY BEING BELOW 150. HE DOES TAKE HIS MEDICATIONS WHOLE WITH WATER. HE COMPLAINED OF HIS NOSE FEELING DRY AND PLUGGED SO HUMIDIFIED O2 ADDED. THIS SON HIS SPOUSE IS AT BEDSIDE WHO HE SAYS HAS RECENTLY RECOVERED FROM COVID.
--- NOTE | 2021-08-24 04:13 | NUR ---
INNOVATIONS PARAPROFESSIONAL SUMMARY AWAKE AT SHIFT COMMENCE WITH AT BEDSIDE. AFFECT CHEERFUL AND TALKATIVE. O2 PER NC AT 5L/MIN. NEURO CHECK, NOTE DECREASED MOUTH DROOP THAN YESTERDAY. LEFT SIDE REMAINS WEAKER THAN THAT OF RIGHT, BUT VOICED FEELING ALL 4 EXT. AT HS, RT PLACED BIPAP ON AND HAS BEEN RESTING FAIRLY QUIETLY SINCE. O2 SATS REMAIN IN THE 90'S. DAY SHIFT VOICED NOTED PT HAD BEEN COUGHING WITH FATIGUE. CALL WAS PLACED TO YESSI JEONG TEST ORDERED. REPOSITIONED THROUGH NOCT FOR COMFORT AND SKIN MAINTENENANCE. DRESSINGS REMAIN ON BILAT CALVES. CALL LIGHT IN REACH.
[2021-08-24 08:11] LABS: SARS-Cov-2 (COVID-19) PCR, MMC POSITIVE (NEGATIVE)
[2021-08-24 09:13] LABS: Base Excess Venous 4.5 mmol/L; Bicarbonate Venous 28.9 mmol/L (24.0-30.0); PCO2 Venous 29.6 mmHg (38-42); PO2 Venous 180 mmHg (38-42); pH Blood Venous 7.56 (7.34-7.37)
[2021-08-24 09:28] LABS: BASOPHILS ABSOLUTE AUTO 0.05 K/mm3 (0.00-0.23); BASOPHILS PERCENT AUTO 1 % (0-2); EOSINOPHILS ABSOLUTE AUTO 0.39 K/mm3 (0.00-0.68); EOSINOPHILS PERCENT AUTO 6 % (0-6); Hematocrit 39.2 % (37.0-53.0); Hemoglobin 11.6 g/dL (13.5-17.5); IMMATURE GRAN ABSOLUTE AUTO 0.03 K/mm3 (0.00-0.10); IMMATURE GRAN PERCENT AUTO 1 % (0-1); LYMPHOCYTES ABSOLUTE AUTO 1.28 K/mm3 (0.84-5.20); LYMPHOCYTES PERCENT AUTO 20 % (21-46); MONOCYTES ABSOLUTE AUTO 0.54 K/mm3 (0.16-1.47); MONOCYTES PERCENT AUTO 8 % (4-13); Mean Corpuscular HGB 27.9 pg (26.0-34.0); Mean Corpuscular HGB Conc 29.6 g/dL (31.5-36.5); Mean Corpuscular Volume 94 fL (80-100); Mean Platelet Volume 10.5 fL (9.1-12.4); NEUTROPHILS ABSOLUTE AUTO 4.16 K/mm3 (1.96-9.15); NEUTROPHILS PERCENT AUTO 65 % (41-73); Platelet Count 195 K/mm3 (150-400); RDW Coefficient Variation 17.5 % (11.7-14.2); RDW Standard Deviation 60.9 fL (35.1-46.3); Red Blood Cell Count 4.16 M/mm3 (4.30-5.90); White Blood Cell Count 6.45 K/mm3 (4.00-11.30)
[2021-08-24 09:38] LABS: Albumin, Blood 2.5 g/dL (3.4-5.0); Anion Gap 6 mmol/L (6-16); Blood Urea Nitrogen 26 mg/dL (8-24); Bun/Creatinine Ratio 17.1 (12.0-20.0); CO2, Blood 30 mmol/L (21-32); Calcium, Blood 8.7 mg/dL (8.5-10.1); Chloride, Blood 99 mmol/L (98-108); Creatinine, Blood 1.52 mg/dL (0.60-1.20); Glomerular Filtration Rate 48 (60-); Glucose, Blood 119 mg/dL (70-99); Phosphorus, Blood 3.6 mg/dL (2.5-4.9); Potassium, Blood 4.3 mmol/L (3.5-5.5); Sodium, Blood 135 mmol/L (136-145)
[2021-08-25 01:03] LABS: Source, Urine Clean Catch
[2021-08-25 01:06] LABS: Bilirubin, Urine Neg (Neg); Blood, Urine 2+ (Neg); Glucose Qualitative, Urine Neg (Neg); Ketones, Urine Neg (Neg); Leukocyte Esterase, Urine 1+ (Neg); Nitrite, Urine Neg (Neg); Protein, Urine 2+ (Neg); Urobilinogen, Urine NORM (Normal)
[2021-08-25 01:12] LABS: Appearance, Urine Clear (Clear); Color, Urine Pale Yellow (P-Yellow)
[2021-08-25 01:15] LABS: Bacteria Many /hpf; Red Blood Cells, Urine 0-2 /hpf (0-2); Squamous Epithelial Cells Not Seen /hpf (Few)
--- NOTE | 2021-08-25 03:39 | NUR ---
DIESEL STATIONARY ENGINEER SUMMARY HAS BEEN RESTING QUIETLY WITH O2 PER NC AND CONT PULSE OX THIS SHIFT. REFUSED THE BIPAP, STATED THAT WITH THE COVID FEELING IT WOULD BE TOO CONFINING. NEUROCHECKS DONE, NO NOTED CHANGES COMPARED WITH 24 HR AGO. UA SENT DUE TO MULTIPLE VOIDINGS TO R/O UTI. REPOSITIONED FOR COMFORT - SEE DOC FLOW SHEETS. CALL LIGHT IN REACH. ISOLATION PRECAUTIONS MAINTAINED
--- NOTE | 2021-08-25 16:01 | NUR ---
SHIFT SUMMARY PT AxOx4. PLEASANT AND COOPERATIVE WITH CARE. PT UP IN CHAIR PER PATIENT'S REQUEST VIA LIFT MACHINE TODAY FOR APPROX 5 HOURS. PHYSICAL THERAPY IN FOR TREATMENT THIS SHIFT. PT REPORTED MCKEON x2. MEDICATED PER EMAR. PT IS BREATHING WITHOUT DIFFICULTY ON 4-5L O2 VIA NC. CONT BIOX IN PLACE. DESATS WITH EXERTION. PT REPORTS LUE WEAKNESS. CALLED TO DAY FOR UPDATE ON PLAN OF CARE. CURRENT DC PLAN IS PENDING PLACEMENT. VITALS REVIEWED. PT RESTING IN BED AT THIS TIME WITH CALL LIGHT IN REACH. DENIES ANY NEEDS AT THIS TIME.
--- NOTE | 2021-08-26 06:36 | NUR ---
SHIFT SUMMARY 75 YR M ADMITTED ON 08/15/21 FOR CVA. DNR. AT START OF SHIFT PT EXPRESSED WANTING TO TRY TO MAKE IT THROUGH THE NIGHT W/O USING HIS CPAP BUT HIS SATS KEPT DROPPING TO MID 80'S EVEN AFTER O2 WAS TURNED UP TO 5. RT PLACED CPAP ON PT AND HE SLEPT THROUGH THE NIGH W/O HAVING HIS STATS DROP BELOW 95. PT IS PLEASANT AND COOPERATIVE.
--- NOTE | 2021-08-26 18:17 | NUR ---
SHIFT SUMMARY PT HAS C/O L KNEE PAIN T/O THE SHIFT AND A MIGRAINE THIS AFTERNOON. ICE OFFERED TO HELP RELIEVE THE MIGRAINE. SEE EMAR FOR PAIN TERRAZZO FINISHER. PT REPOSITIONED IN BED. WORKED WITH OCCUPATIONAL THERAPY. AWAITING PLACEMENT. CONFIRMED WITH INFECTION PREVENTION THAT THE PT NEEDS TO BE IN ISOLATION FOR 10 DAYS FROM POSITIVE TEST. NO OTHER ACUTE CHANGES IN ASSESSMENT AT THIS TIME. BLE BANDAGES INTACT AND NOT DUE TO BE CHANGED UNTIL 08/28. VS REVIEWED. CALL LIGHT IN REACH. PT DENIES OTHER NEEDS AT THIS TIME.
--- NOTE | 2021-08-27 04:33 | NUR ---
SHIFT SUMMARY PT SLEEPING OFF AND ON THROUGHOUT SHIFT. PT HAD COMPLAINED OF BODY ACHES AND HEADACHE EARLIER AND WAS MEDICATED PER EMAR. PT PLACED ON HIS CPAP AND HAS BEEN RELAXING/SLEEPING. PT ON CONTINOUS PULSE OXIMETRY AND BIOX IS 94% WHILE ON CPAP. PT HAS CALL LIGHT WITHIN REACH.
--- NOTE | 2021-08-27 08:00 | NUR ---
pt laying in bed watching tv, a/ox3, pleasant and cooperative with care, follows commands well, denies pain, lungs are dim t/o, resp even and unlabored, no cough noted, on 5 liters high flow n/c, and cpap when sleeps, hrr, swelling to b/l le, piv site is clear and patent, btx4, abd round soft nontender, briefs in place, uses urinal to void, skin has wounds to b/l legs, dressings in place secured with yari wraps, he reports he can't bear weight, and needs to get up with a lift, nahid gonzales, call light in reach.
--- NOTE | 2021-08-27 18:10 | NUR ---
pt has had a h/a most of the day, he was medicated with tylenol several times, and tramadol, got up to the chair with a lift, had a bout of nausia was medicated with zofran, no further changes this shift. call light in reach.
--- NOTE | 2021-08-28 04:42 | NUR ---
SHIFT SUMMARY PT COMPLAINED OF PAIN LAST EVENING, MEDICATED PER EMAR. NO COMPLAINTS OF PAIN SINCE. PT PLACED ON HIS CPAP AND HAS BEEN SLEEPING MOST OF THE NIGHT. PT HAS CALL LIGHT WITHIN HIS REACH.
--- NOTE | 2021-08-28 17:27 | NUR ---
SHIFT SUMMARY: NO ACUTE EVENTS. WEAKNESS ON L SIDE, GETTING UP TO CHAIR WITH 1 PERSON ASSIST. O2 TITRATED DOWN TO 4 L/MIN HI FLOW NC, CONTINUOUS OXIMETRY SHOWS SAT 90-95%. C/O INTERMITTENT MCKEON; MEDICATED PER EMAR WITH SOME RELIEF. C/O STUFFED NOSE, GAVE SALINE NASAL SPRAY WITH SOME RELIEF. USING URINAL WITH ASSISTANCE. TOLERATING PO INTAKE. POSSIBLE D/C TOMORROW.
--- NOTE | 2021-08-29 06:02 | NUR ---
SHIFT SUMMARY A/O X4. VITAL SIGNS STABLE. NO PAIN REPORTED THROUGHOUT SHIFT. REMAINS ON 4L HIGH FLOW AND CPAP AT NIGHT- 02 REMAINS ABOVE 94%. VOIDING IN URINAL. L SIDE WEAKNESS REMAINS ABOUT THE SAME PER PT REPORT. WILL CONTINUE TO MONITOR PT AND REPORT TO ONCOMING RN.
--- NOTE | 2021-08-29 13:05 | NUR ---
PATIENT REQUESTING TO TAKE HOSPITAL CPAP MASK HOME HE STATES IT IS MORE COMFORTABLE THAN THE ONE HE HAS AT HOME. THIS AUTHOR SPOKE TO [place]ia PINEDA FROM [facility] TO ASK IF THIS WAS OK. RESP THERAPIST STATED THAT PATIENT SHOULD NOT TAKE HOSPITAL MASK HOME : 1. IT MAY NOT FIT HIS HOME EQUIPMENT. 2. HOSPITAL MASK HAS A BUILT-IN LEAK SO PT'S CAN EXHALE CO2. PT'S HOME MACHINE MAY NOT HAVE THIS AND HE MAY NOT BE ABLE TO EXPEL CO2, WHICH IS DEADLY. 3. HOSPITAL MASK MAY NOT LAST VERY LONG. THIS INFORMATION WAS PASSED TO PATIENT AND HIS WITH A COMPLETE EXPLANATION OF LIFE THREATENING CONSEQUENCES IF HE TRIES TO USE THE MASK AT HOME. VERBALIZED UNDERSTANING OF THIS EDUCATION, BUT PT WAS STILL INSISTENT ON TRYING TO USE MASK AT HOME. WILL CONTINUE TO REINFORCE THIS INFORMATION.
--- NOTE | 2021-08-29 13:12 | NUR ---
SPOKE TO DR. TIMMONS BY PHONE, REQUESTED HOME O2 RE-EVAL TO SEE IF PT'S O2 NEEDS HAD CHANGED SINCE HE HAS BEEN ILL WITH COVID. PROVIDER STATED THAT PT'S OXYGENATION WAS NOT THE PROBLEM (MORE THAT HE NEEDED BIPAP TO TREAT HYPERCAPNIA), SO PT DOES NOT NEED HOME O2 RE-EVALUATION. PASSED THIS INFORMATION ON TO PATIENT, WHO VERBALIZED UNDERSTANDING.
[2021-08-29] MEDS ORDERED: ATOR40TA PO (16:22)
[2021-08-29] MEDS ORDERED: CLOP75 PO (16:23)
[2021-08-29] MEDS ORDERED: BASAGLAR K100 UNIT/1 SC (16:24)
--- NOTE | 2021-08-29 17:48 | NUR ---
PATIENT DISCHARGED TO HOME ACCOMPANIED BY HIS , TRANSPORTED BY [facility]. IV SALINE LOCK REMOVED WITHOUT INCIDENT. PT AND HAD MANY QUESTIONS ABOUT HIS MEDICATIONS HE HAS SEVERAL AT HOME THAT HE WAS TAKING PRIOR TO HIS FIRST ADMISSION (TRUJEO, METOPROLOL, HUMALOG TO NAME A FEW) AND NONE OF THESE WERE ON HIS ADMISSION MEDICATION RECONCILIATION (ADMITTED FROM [facility]). EDUCATED PT AND THAT THIS AUTHOR COULD NOT ADVISE ON THE PREVIOUS HOME MEDICATIONS I AM NOT A PRESCRIBER OR PHYSICIAN. ADVISED THEM THAT ONE OF THEM WOULD NEED TO TALK TO DR. ARAGON ABOUT RE-STARTING HOME MEDICATIONS; IS PLANNING TO GO TO DR. ARAGON'S OFFICE ON WEDNESDAY. OFF UNIT AT 1705; NO PERSONAL BELONGINGS LEFT BEHIND IN ROOM.
== END 2021-08-29 17:10 | DRG 64 ==
LOC: ER 11:00 → MEDS 13:30 → PCU 08-16 13:26 → MEDS 08-18 00:45
PROVIDERS: Emergency Medicine; Family Medicine; Internal Medicine; ADMIT Internal Medicine
PROC: 8E0ZXY6 Isolation (ICD-10-PCS; principal; 2021-08-22)
DX: I63.9 Cerebral infarction, unspecified (principal); G92.8 Other toxic encephalopathy; J96.22 Acute and chronic respiratory failure with hypercapnia; U07.1 COVID-19; J96.01 Acute respiratory failure with hypoxia; G81.94 Hemiplegia, unspecified affecting left nondominant side; I13.0 Hypertensive heart and chronic kidney disease with heart failure and stage 1 through stage 4 chronic kidney disease, or unspecified chronic kidney disease; I50.32 Chronic diastolic (congestive) heart failure; Z68.42 Body mass index [BMI] 45.0-49.9, adult; N17.9 Acute kidney failure, unspecified; E66.2 Morbid (severe) obesity with alveolar hypoventilation; Z66 Do not resuscitate; E78.00 Pure hypercholesterolemia, unspecified; J44.9 Chronic obstructive pulmonary disease, unspecified; E11.22 Type 2 diabetes mellitus with diabetic chronic kidney disease; E11.51 Type 2 diabetes mellitus with diabetic peripheral angiopathy without gangrene; N18.32 Chronic kidney disease, stage 3b; D63.1 Anemia in chronic kidney disease; E11.40 Type 2 diabetes mellitus with diabetic neuropathy, unspecified; R29.810 Facial weakness; I50.812 Chronic right heart failure; G25.81 Restless legs syndrome; Z91.19 Patient's noncompliance with other medical treatment and regimen; Z88.0 Allergy status to penicillin; Z88.8 Allergy status to other drugs, medicaments and biological substances; Z79.4 Long term (current) use of insulin; Z79.899 Other long term (current) drug therapy
CPT/HCPCS: 0241U; 36415; 36600; 70450; 70496; 70498; 71045; 73560-LT; 80048; 80053; 80061; 80069; 81001; 82803; 82947; 83605; 84439; 84443; 85025; 87040; 87086; 92526; 92610; 93005; 93010; 94660; 94760; 94762; 97110; 97116; 97140; 97162; 97166; 97530; 97535; 99285-25; A9270; J1650; J1815; J2405; J7030; Q9967; U0004

== ENCOUNTER → 2021-11-03 | Outpatient (CLI) | payer OTHER ==
[~2021-11-03] MED LIST changes: +ALBU90OI INH; +ATOR40TA PO; +Aspir 8181 MG PO; +BASAGLAR K100 UNIT/1 SC; +CLOP75 PO; +PRINIVIL5 M1 PO; +TRAM50 PO
[2021-11-03 13:32] LABS: Creatinine Urine 45.5 mg/dL (27.00-270.00); Protein, Urine Quantitative 37.8 mg/dL (0.0-11.9)
== END | disposition home or self-care (01) ==
LOC: LAB SHORT 09:56 → LAB 09:56
PROVIDERS: Internal Medicine Nephrology
DX: N18.30 Chronic kidney disease, stage 3 unspecified (principal); D63.1 Anemia in chronic kidney disease; N25.81 Secondary hyperparathyroidism of renal origin; E55.9 Vitamin D deficiency, unspecified; E78.00 Pure hypercholesterolemia, unspecified; N40.0 Benign prostatic hyperplasia without lower urinary tract symptoms; G60.9 Hereditary and idiopathic neuropathy, unspecified; D51.8 Other vitamin B12 deficiency anemias; R76.9 Abnormal immunological finding in serum, unspecified; R94.5 Abnormal results of liver function studies; R94.6 Abnormal results of thyroid function studies
CPT/HCPCS: 81050; 82043; 82570; 84156

== ENCOUNTER → 2022-06-15 | Outpatient (CLI) | payer OTHER ==
[2022-06-15 19:12] LABS: BASOPHILS ABSOLUTE AUTO 0.08 K/mm3 (0.00-0.23); BASOPHILS PERCENT AUTO 1 % (0-2); EOSINOPHILS ABSOLUTE AUTO 0.57 K/mm3 (0.00-0.68); EOSINOPHILS PERCENT AUTO 7 % (0-6); Hematocrit 41.5 % (37.0-53.0); Hemoglobin 13.1 g/dL (13.5-17.5); IMMATURE GRAN ABSOLUTE AUTO 0.02 K/mm3 (0.00-0.10); IMMATURE GRAN PERCENT AUTO 0 % (0-1); LYMPHOCYTES ABSOLUTE AUTO 1.36 K/mm3 (0.84-5.20); LYMPHOCYTES PERCENT AUTO 17 % (21-46); MONOCYTES ABSOLUTE AUTO 0.52 K/mm3 (0.16-1.47); MONOCYTES PERCENT AUTO 7 % (4-13); Mean Corpuscular HGB Conc 31.6 g/dL (31.5-36.5); Mean Corpuscular Volume 95 fL (80-100); Mean Platelet Volume 10.4 fL (9.1-12.4); NEUTROPHILS ABSOLUTE AUTO 5.43 K/mm3 (1.96-9.15); NEUTROPHILS PERCENT AUTO 68 % (41-73); Platelet Count 292 K/mm3 (150-400); RDW Coefficient Variation 14.1 % (11.7-14.2); RDW Standard Deviation 49.2 fL (35.1-46.3); Red Blood Cell Count 4.37 M/mm3 (4.30-5.90); White Blood Cell Count 7.98 K/mm3 (4.00-11.30)
[2022-06-15 19:30] LABS: LDL/HDL RATIO 2.2; Very Low Density Lipoprot Chol 26 mg/dL (6-32)
[2022-06-15 19:31] LABS: Alanine Aminotransfer (ALT/SGP 30 U/L (12-78); Albumin, Blood 2.5 g/dL (3.4-5.0); Albumin/Globulin Ratio 0.5 (0.8-1.8); Alk Phos 85 U/L (50-136); Anion Gap 3 mmol/L (6-16); Aspartate Aminotrans (AST/SGOT 14 U/L (12-37); Bilirubin, Total 0.5 mg/dL (0.1-1.0); Blood Urea Nitrogen 25 mg/dL (8-24); Bun/Creatinine Ratio 12.1 (12.0-20.0); CHOL/HDL RATIO 4.3; CO2, Blood 22 mmol/L (21-32); Chloride, Blood 110 mmol/L (98-108); Cholesterol 99 mg/dL (50-200); Creatinine, Blood 2.07 mg/dL (0.60-1.20); Globulin, Blood 5.1 g/dL (2.2-4.0); Glomerular Filtration Rate 33 (60-); Glucose, Blood 108 mg/dL (70-99); HDL Cholesterol 23 mg/dL (>39); Low Density Lipoprotein Chol 50 mg/dL (0-110); Sodium, Blood 135 mmol/L (136-145); Total Protein, Blood 7.6 g/dL (6.4-8.2); Triglycerides 130 mg/dL (30-160)
== END | disposition home or self-care (01) ==
LOC: LAB SHORT 17:27
PROVIDERS: Hospitalist
DX: E78.5 Hyperlipidemia, unspecified (principal); E11.22 Type 2 diabetes mellitus with diabetic chronic kidney disease; I13.0 Hypertensive heart and chronic kidney disease with heart failure and stage 1 through stage 4 chronic kidney disease, or unspecified chronic kidney disease; N18.31 Chronic kidney disease, stage 3a; I50.9 Heart failure, unspecified; N25.81 Secondary hyperparathyroidism of renal origin
CPT/HCPCS: 80053; 80061; 82043; 83970; 85025

== ENCOUNTER → 2022-06-25 | Outpatient (CLI) | payer OTHER | LOC: LAB SHORT 16:08 → LAB 16:08 | DX: L02.91 Cutaneous abscess, unspecified (principal) | CPT/HCPCS: 87070; 87075; 87077; 87147; 87186; 87205 ==

== ENCOUNTER 2022-08-25 17:18 | Inpatient (IN) | payer OTHER ==
[~2022-08-25] VITALS: Ht 167.6 cm; Wt 138.2 kg
[2022-08-25] MEDS ORDERED: FARXIGA10 MG PO (17:40)
[2022-08-25 17:56] LABS: BASOPHILS ABSOLUTE AUTO 0.06 K/mm3 (0.00-0.23); BASOPHILS PERCENT AUTO 0 % (0-2); EOSINOPHILS ABSOLUTE AUTO 0.17 K/mm3 (0.00-0.68); EOSINOPHILS PERCENT AUTO 1 % (0-6); Hematocrit 40.4 % (37.0-53.0); Hemoglobin 12.9 g/dL (13.5-17.5); IMMATURE GRAN ABSOLUTE AUTO 0.08 K/mm3 (0.00-0.10); IMMATURE GRAN PERCENT AUTO 1 % (0-1); LYMPHOCYTES ABSOLUTE AUTO 0.68 K/mm3 (0.84-5.20); LYMPHOCYTES PERCENT AUTO 4 % (21-46); MONOCYTES PERCENT AUTO 4 % (4-13); Mean Corpuscular HGB 29.6 pg (26.0-34.0); Mean Corpuscular HGB Conc 31.9 g/dL (31.5-36.5); Mean Corpuscular Volume 93 fL (80-100); Mean Platelet Volume 9.8 fL (9.1-12.4); NEUTROPHILS ABSOLUTE AUTO 14.21 K/mm3 (1.96-9.15); NEUTROPHILS PERCENT AUTO 89 % (41-73); Platelet Count 274 K/mm3 (150-400); RDW Coefficient Variation 16.2 % (11.7-14.2); RDW Standard Deviation 55.3 fL (35.1-46.3); Red Blood Cell Count 4.36 M/mm3 (4.30-5.90)
[2022-08-25 18:23] LABS: Alanine Aminotransfer (ALT/SGP 30 U/L (12-78); Albumin, Blood 2.3 g/dL (3.4-5.0); Albumin/Globulin Ratio 0.4 (0.8-1.8); Alk Phos 108 U/L (50-136); Anion Gap 15 mmol/L (6-16); Aspartate Aminotrans (AST/SGOT 40 U/L (12-37); Bilirubin, Total 0.5 mg/dL (0.1-1.0); Blood Urea Nitrogen 107 mg/dL (8-24); Bun/Creatinine Ratio 17.3 (12.0-20.0); CO2, Blood 12 mmol/L (21-32); Calcium, Blood 8.1 mg/dL (8.5-10.1); Chloride, Blood 104 mmol/L (98-108); Creatinine, Blood 6.19 mg/dL (0.60-1.20); Globulin, Blood 5.9 g/dL (2.2-4.0); Glomerular Filtration Rate 9 (60-); Glucose, Blood 204 mg/dL (70-99); Potassium, Blood 6.8 mmol/L (3.5-5.5); Sodium, Blood 131 mmol/L (136-145); Total Protein, Blood 8.2 g/dL (6.4-8.2)
[2022-08-25 19:14] LABS: Magnesium, Blood 2.8 mg/dL (1.6-2.4)
[2022-08-25 19:16] LABS: Thyroid Stimulating Hormone 2.78 uIU/mL (0.360-4.800)
[2022-08-25 20:26] LABS: Base Excess Venous -18.4 mmol/L; Bicarbonate Venous 11.6 mmol/L (24.0-30.0); PCO2 Venous 37.1 mmHg (38-42); pH Blood Venous 7.09 (7.34-7.37)
[2022-08-25 20:29] LABS: Hematocrit 40.7 % (37.0-53.0)
[2022-08-25 20:56] LABS: Albumin, Blood 2.2 g/dL (3.4-5.0); Anion Gap 16 mmol/L (6-16); Blood Urea Nitrogen 106 mg/dL (8-24); Bun/Creatinine Ratio 17.5 (12.0-20.0); CO2, Blood 11 mmol/L (21-32); Calcium, Blood 8.2 mg/dL (8.5-10.1); Chloride, Blood 105 mmol/L (98-108); Creatinine, Blood 6.04 mg/dL (0.60-1.20); Glomerular Filtration Rate 9 (60-); Glucose, Blood 155 mg/dL (70-99); Phosphorus, Blood 8.4 mg/dL (2.5-4.9); Potassium, Blood 6.4 mmol/L (3.5-5.5); Sodium, Blood 132 mmol/L (136-145)
[2022-08-25 22:28] VITALS: BP 93/56
[2022-08-25 22:45] LABS: Potassium, Blood 6.6 mmol/L (3.5-5.5)
[2022-08-25 23:21] LABS: pH Blood Venous 7.13 (7.34-7.37)
[2022-08-25 23:22] LABS: Base Excess Venous -18 mmol/L; Bicarbonate Venous 11.6 mmol/L (24.0-30.0); PCO2 Venous 33.9 mmHg (38-42)
[2022-08-26] VITALS (10 sets, daily range): BP systolic 80–112; BP diastolic 46–96
[2022-08-26] MEDS ORDERED: LOSA25 PO (01:06)
[2022-08-26] MEDS ORDERED: Flomax0.4 MG PO (01:08)
[2022-08-26] MEDS ORDERED: PRAM.5 PO (01:09)
[2022-08-26] MEDS ORDERED: TOUJEO SOL300 UNIT/2 SC (01:12)
[2022-08-26 02:39] LABS: BASOPHILS ABSOLUTE AUTO 0.04 K/mm3 (0.00-0.23); BASOPHILS PERCENT AUTO 0 % (0-2); EOSINOPHILS ABSOLUTE AUTO 0.11 K/mm3 (0.00-0.68); EOSINOPHILS PERCENT AUTO 1 % (0-6); Hematocrit 34.2 % (37.0-53.0); Hemoglobin 11.4 g/dL (13.5-17.5); IMMATURE GRAN ABSOLUTE AUTO 0.11 K/mm3 (0.00-0.10); IMMATURE GRAN PERCENT AUTO 1 % (0-1); LYMPHOCYTES ABSOLUTE AUTO 0.64 K/mm3 (0.84-5.20); LYMPHOCYTES PERCENT AUTO 4 % (21-46); MONOCYTES PERCENT AUTO 7 % (4-13); Mean Corpuscular HGB 29.9 pg (26.0-34.0); Mean Corpuscular HGB Conc 33.3 g/dL (31.5-36.5); Mean Corpuscular Volume 90 fL (80-100); Mean Platelet Volume 9.6 fL (9.1-12.4); NEUTROPHILS ABSOLUTE AUTO 14.75 K/mm3 (1.96-9.15); NEUTROPHILS PERCENT AUTO 88 % (41-73); Platelet Count 243 K/mm3 (150-400); RDW Coefficient Variation 15.9 % (11.7-14.2); RDW Standard Deviation 53.1 fL (35.1-46.3); Red Blood Cell Count 3.81 M/mm3 (4.30-5.90); White Blood Cell Count 16.75 K/mm3 (4.00-11.30)
[2022-08-26 02:57] LABS: Albumin, Blood 1.9 g/dL (3.4-5.0); Anion Gap 14 mmol/L (6-16); Blood Urea Nitrogen 103 mg/dL (8-24); Bun/Creatinine Ratio 17.4 (12.0-20.0); CO2, Blood 16 mmol/L (21-32); Calcium, Blood 7.5 mg/dL (8.5-10.1); Chloride, Blood 106 mmol/L (98-108); Creatinine, Blood 5.92 mg/dL (0.60-1.20); Glomerular Filtration Rate 9 (60-); Glucose, Blood 171 mg/dL (70-99); Magnesium, Blood 2.3 mg/dL (1.6-2.4); Phosphorus, Blood 7.2 mg/dL (2.5-4.9); Potassium, Blood 5.8 mmol/L (3.5-5.5); Sodium, Blood 136 mmol/L (136-145)
[2022-08-26 03:06] LABS: International Normalized Ratio 1.19; Prothrombin Time Results 12.4 Sec (9.7-11.5)
--- NOTE | 2022-08-26 06:42 | NUR ---
SHIFT SUMMARY/ARRIVAL TO PCU NOTE RECEIVED REPORT FROM ED RN BRYAN KARU, PT SHORTLY ARRIVED TO PCU ~2230 ON 08/25/22. PT LETHARGIC UPON ARRIVAL WITH BOTH EYES SHUT AND INTERMITTENT GROANS. AWOKE TO VERBAL STIMULI WITH WITH PT BEING A/Ox3 AND COOPERATIVE WITH CARE PROVIDED BY STAFF. PT TRANSFERRED FROM [facility] TO PCU BED VIA SLIDE SHEET, SPOUSE WITH PT UPON ARRIVAL. CARDIAC BAY, ARRIVED IN ST 120-130'S WITH NO C/O CP OR PRESSURE. SBP A LITTLE SOFT 90-100'S. RESPIRATORY BAY, MAINTAINED SPO2 >92% ON 4L VIA NC, LS CLEAR BUT DIM IN THE BASES. C/O SOB/DYSPNEA WITH MINIMAL EXERTION. GI/, PT ARRIVED FROM THE ER WITH VELASCO CATH IN PLACE. CATH PATENT AND DRAINING YELLOW URINE TO GRAVITY. REPORTS CHRONIC DIARRHEA "FOR TIME NOW". SKIN, BLE EXTREMELY EXCORIATED SKIN WITH VISABLE MAGGOTS CRAWLING THROUGH/UNDER DECAYING SKIN. ATTEMPTED TO REMOVE ALL VISABLE MAGGOTS WITH SUCTION. COCCYX/SACRAL AREA ALSO EXTREMELY EXCORIATED WELL, SITE CLEAN AND MEPLIX PUT IN PLACE. SEE PICS IN CHART. SHIFT SUMMARY PRESSURES CONTINUE TO GET SOFT WITH SBP RANGING 80-90'S. 250ML BOLUS ALONG WITH MIDORINE GIVEN PER DR. EDGAR'S ORDERS. BUMEX gtt AND BICARB gtt RUNNING ORDERED PER EMAR. LEG WOUNDS CONTIUE TO WEEP, DISPOSABLE CHUCKS CHANGED PRN. Q2 HOUR TURNS PERFORMED, PAIN MANAGED WELL VIA EMAR. SEE NOTE ABOVE FOR MORE DETAILS.
[2022-08-26 08:40] LABS: Hematocrit 36.1 % (37.0-53.0); Hemoglobin 11.6 g/dL (13.5-17.5)
[2022-08-26 10:18] LABS: Source, Urine Foley catheter
[2022-08-26 10:28] LABS: Appearance, Urine Hazy (Clear); Bilirubin, Urine Neg (Neg); Blood, Urine 5+ (Neg); Color, Urine Yellow (P-Yellow); Glucose Qualitative, Urine Neg (Neg); Ketones, Urine Neg (Neg); Leukocyte Esterase, Urine 2+ (Neg); Nitrite, Urine Neg (Neg); Protein, Urine 2+ (Neg); Urobilinogen, Urine NORM (Normal)
--- NOTE | 2022-08-26 10:49 | NUR ---
Spoke with Primary RN Amanda prior to visit and discussed case. Amanda reports Pt experiencing some confusion. Pt resting in bed wearing BIPAP. Pt's spouse Leelee at [facility]. lace cutter and Dr Sun arrives to examine Pt. Spoke with spouse Leelee in door way of Pt. Engaged in therapeutic conversation regarding code status wishes. She reports memory of PC RN Mary visiting during last hospital stay and reading book provided. Pt has told her that he wants CPR and to be Intubated if needed. Leelee does question Pt's ability to understand potential risks and consequences. She states at times he seems to understanding things somewhat adequately and other times he is "more like a 13 year old", and struggles with understanding. Brief discussion on the importance of planning for the future including the potential of needing more care. Leelee agreeable for continued PC visits. Palliative Care will remain available.
[2022-08-26 11:06] LABS: Bacteria Few /hpf; Squamous Epithelial Cells Not Seen /hpf (Few)
[2022-08-26 13:25] LABS: Anion Gap 14 mmol/L (6-16); Blood Urea Nitrogen 102 mg/dL (8-24); Bun/Creatinine Ratio 17.4 (12.0-20.0); CO2, Blood 18 mmol/L (21-32); Calcium, Blood 7.8 mg/dL (8.5-10.1); Chloride, Blood 103 mmol/L (98-108); Creatinine, Blood 5.86 mg/dL (0.60-1.20); Glomerular Filtration Rate 9 (60-); Glucose, Blood 184 mg/dL (70-99); Phosphorus, Blood 8.4 mg/dL (2.5-4.9); Potassium, Blood 5.9 mmol/L (3.5-5.5); Sodium, Blood 135 mmol/L (136-145)
[2022-08-26 15:03] LABS: Hematocrit 35.5 % (37.0-53.0); Hemoglobin 11.5 g/dL (13.5-17.5)
--- NOTE | 2022-08-26 15:08 | NUR ---
MORNING SUMMARY PT WAS VERY LETHARGIC THIS AM BUT HAS SINCE BEEN ABLE TO CONSUME ORAL INTAKE AND ANSWER QUESTIONS APPROPRIATELY. SEE NUERO ASSESSMENTS FOR DETAILS IN CHANGE. PT WAS PLACED ON A AIR BED MATTRESS FOR WOUNDS AND HAD A WOUND NURSE COME AND PROVIDE CARE. SEE ORDERS FO RWOUND CARE DETAILS. MAGGOTS HAVE BEEN SUCTIONED OUT OF BLE, BUT A BETADINE WRAP WAS DONE AND I HAVE NOT OBSERVED ANY LIVE MAGGOTS SINCE. PT HAS COMPLAINED OF BURNING PAIN IN HIS LEGS AND HAS BEEN MEDICATED PER EMAR FOR PAIN. HE HAS A LOW GRADE FEVER AND WAS GIVEN TYLENOL. PT CAN FOLLOW SIMPLE COMMANDS. HE IS ON A BICARB AND BUMEX GTT. DR. JACOB MANAGING MEDICAITONS, AND HE ORDERED PHOSLO W/ MEALS, AND AN ADDITIONAL 1 AMP OF BICARB AFTER RECIEVING THE 1200 RENAL FUNCTION PANEL. PT/FAMILY ASSESSED AND EDUCATED ON FIRE IGNITION/ FIRE SAFETY RISKS. BED IN LOW, CALL LIGHT IN REACH. CARE HANDED OFF TO ARNOLD SCHILLING
--- NOTE | 2022-08-26 16:05 | NUR ---
WOUND CARE PARTIAL THICKNESS WOUNDS TO POSTERIOR BLE WITH LARGE AREAS OF CRUST. MAGGOTS NOTED. BLE WRAPPED IN BETADINE SOAKED GAUZE TO KILL LARVA. LEGS THEN WASHED WITH DERMAL WOUND AND GAUZE. EUCERIN LOTION TO BLE TO SOFTEN CRUST. XEROFORM TO OPEN WOUND THEN ABD/GAUZE. PT WITH WHAT APPEARS TO BE YEAST TO PANNUS WITH EXCORIATIONS. MYCOLOG OINTMENT APPLIED WITH ABD/PILLOW CASES. 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 DEEP TISSUE INJURY TO L ISCHIAL TUBEROSITY, BETADINE APPLIED TO KEEP DRY AND COVERED WITH BORDERED FOAM TO PROTECT. AIR MATRESS ORDERED TO KEEP THIS FROM OPENING. CONTINUE TO OFFLOAD. YARELI RN WILL RETURN TOMORROW
--- NOTE | 2022-08-26 17:02 | NUR ---
REPORT RECEIVED FROM MICHELE SCHILLING. PT WAS SWITCHED TO WOUND CARE BED VIA LIFT. PT ON BIPAP MASK REQUESTED TO A BREAK WAS SWITCHED TO 6L OF NASAL CANNULA AT THE BEDSIDE. PT ALERT AND TALKING STILL LETHARGIC. VITALS HAS BEEN STABLE. REMAINS ON BIACRB GTT AND BUMEX GTT, VELASCO CATHETER DRAINING VIA GRAVITY. NO OTHER ISSUES AT THIS TIME, CALL LIGHTS IN REACH WILL CONTINUE TO MONITOR
[2022-08-27] VITALS (14 sets, daily range): BP systolic 88–114; BP diastolic 43–57
[2022-08-27 04:47] LABS: Hematocrit 33.9 % (37.0-53.0); Hemoglobin 11.3 g/dL (13.5-17.5)
--- NOTE | 2022-08-27 05:08 | NUR ---
SHIFT SUMMARY THIS RN ASSUMED CARE OF PATIENT AT 1900. PT HAS BEEN LETHARGIC THROUGHOUT THIS SHIFT. ABLE TO BE ROUSED WITH VERBAL STIMULI. ANSWERING QUESTIONS APPROPRIATELY WHEN AWAKE. PAINFUL WITH MOVEMENTS. DENIES PAIN WHILE AT REST. VITALS STABLE. MAP >65. SR/ST WITH HR 80-100'S. PT ON CPAP WITH 3-5L BLEED IN THROUGHOUT THIS SHIFT D/T LETHARGY. ON 4-5L VIA NC WHILE OFF CPAP FOR ORAL INTAKE. MEDICATED FOR FEVER. BUMEX AND BICARB GTT INFUSING PER EMAR. TEMP VELASCO CATHETER PATENT AND DRAINING VIA GRAVITY. REPOSITIONING Q2HRS. FLOATING EXTREMETIES. ASSESSED PATIENT/FAMILY FOR IGNITION RISK, EDUCATED ABOUT FIRE SAFETY. BED IN LOWEST POSITION AND CALL LIGHT WITHIN REACH. THIS RN WILL CONTINUE TO MONITOR UNTIL SHIFT CHANGE AT 0700
[2022-08-27 05:38] LABS: Magnesium, Blood 2.4 mg/dL (1.6-2.4)
[2022-08-27 05:43] LABS: Albumin, Blood 1.6 g/dL (3.4-5.0); Anion Gap 11 mmol/L (6-16); Blood Urea Nitrogen 106 mg/dL (8-24); Bun/Creatinine Ratio 19.6 (12.0-20.0); CO2, Blood 24 mmol/L (21-32); Calcium, Blood 7.3 mg/dL (8.5-10.1); Chloride, Blood 99 mmol/L (98-108); Creatinine, Blood 5.41 mg/dL (0.60-1.20); Glomerular Filtration Rate 10 (60-); Glucose, Blood 149 mg/dL (70-99); Phosphorus, Blood 8.6 mg/dL (2.5-4.9); Potassium, Blood 4.9 mmol/L (3.5-5.5); Sodium, Blood 134 mmol/L (136-145)
[2022-08-27 14:36] LABS: Albumin, Blood 1.7 g/dL (3.4-5.0); Anion Gap 13 mmol/L (6-16); Blood Urea Nitrogen 108 mg/dL (8-24); Bun/Creatinine Ratio 20.4 (12.0-20.0); CO2, Blood 24 mmol/L (21-32); Calcium, Blood 7.2 mg/dL (8.5-10.1); Chloride, Blood 97 mmol/L (98-108); Glomerular Filtration Rate 11 (60-); Glucose, Blood 190 mg/dL (70-99); Phosphorus, Blood 7.8 mg/dL (2.5-4.9); Potassium, Blood 4.5 mmol/L (3.5-5.5); Sodium, Blood 134 mmol/L (136-145)
--- NOTE | 2022-08-27 15:29 | NUR ---
CALLED DR. CECIL Starr/ THE REPORT OF THE RENAL PANNEL HE REQUESTED. NO FURTHER ORDERS AT THIS TIME.
--- NOTE | 2022-08-27 17:18 | NUR ---
SHIFT SUMMARY PT RESPONDS TO VERBAL AND PHYSICAL STIMULI. HE IS VERY DROWSY BUT CAN ANSWER QUESTIONS WITH SHORT/SIMPLE RESPONSES. THE PT HAS BEEN ON CPAP WHEN HE IS NAPPING, BUT WHEN AWAKE HE HAS BEEN ON THE NC 4-6L. HIS BIGGEST COMPLAINT IS THE BURNING PAIN IN HIS LEGS. HE HAS BEEN MEDICATED PER EMAR, BUT DOES HAVE A SOFT BP S AND IT BECOMES SOFTER AFTER GIVEN FENTANYL. DR. AJCOB IS MANAGING THE PT S MEDICATIONS, AND STARTED HIM ON MIDODRINE 10 MG TID AND ALBUMIN BID. DR. JACOB STATED THAT HE IS ONLY CONCERNED IF THE SBP <90, HE STATED HE DOES NOT WANT TO GO OFF OF THE MAPS. PARAMETERS WERE ADDED TO THE BUMEX ORDER. WOUND CARE NURSE CAME AND REDRESSED THE PT S WOUNDS. SHE STATED SHE WILL BE BACK TOMORROW. PT S HAS BEEN AT BEDSIDE AND WAS UPDATED ON CARE. BED IN LOW, CALL LIGHT IN REACH, THREE SIDE RAILS UP. PT AND FAMILY ASSESSED/EDUCATED ON FIRE IGNITION RISK, SAFETY, AND RISK OF INJURY. SEE NOTES FOR ANY UPDATES.
[2022-08-28 00:24] VITALS: BP 96/56
[2022-08-28 04:29] VITALS: BP 94/56
[2022-08-28 04:39] LABS: Hematocrit 33.1 % (37.0-53.0); Hemoglobin 10.8 g/dL (13.5-17.5); Mean Corpuscular HGB 29.9 pg (26.0-34.0); Mean Corpuscular HGB Conc 32.6 g/dL (31.5-36.5); Mean Corpuscular Volume 92 fL (80-100); Mean Platelet Volume 9.9 fL (9.1-12.4); Platelet Count 222 K/mm3 (150-400); RDW Coefficient Variation 15.7 % (11.7-14.2); Red Blood Cell Count 3.61 M/mm3 (4.30-5.90); White Blood Cell Count 14.04 K/mm3 (4.00-11.30)
--- NOTE | 2022-08-28 05:44 | NUR ---
SHIFT SUMMARY NO ACUTE CHANGES OVERNIGHT. PT CONTINUES TO BE LETHARGIC DURING THIS SHIFT BUT IS AROUSED BY VERBAL STIMULI. ORIENTED X3-4. WEARING CPAP WHILE SLEEPING WITH 7L BLEED IN, WHILE AWAKE PT WEARING HIFLOW NC WITH 7L OF O2; SPO2 >92%. BP STABLE WITH SBP >90. SR BBB WITH PVC'S/PAC'S HR 70-90'S. REPOSITIONING Q2HRS. DRESSING ON BUTTOCKS REDRESSED, OINTMENT APPLIED TO COCCYX, ANTIFUNGAL POWDER APPLIED TO ABD/AMANDA FOLDS WITH PILLOW CASES PLACED IN FOLDS. PT MEDICATED FOR PAIN PER EMAR. ELEVATING EXTREMETIES. ASSESSED PATIENT FOR IGNITION RISK, EDUCATED ABOUT FIRE SAFETY. BED IN LOWEST POSITION AND CALL LIGHT WITHIN REACH. THIS RN WILL CONTINUE TO MONITOR UNTIL SHIFT CHANGE AT 0700.
[2022-08-28 06:24] LABS: Magnesium, Blood 2.3 mg/dL (1.6-2.4)
[2022-08-28 06:27] LABS: Albumin, Blood 1.7 g/dL (3.4-5.0); Anion Gap 12 mmol/L (6-16); Blood Urea Nitrogen 110 mg/dL (8-24); Bun/Creatinine Ratio 21.4 (12.0-20.0); CO2, Blood 24 mmol/L (21-32); Calcium, Blood 7.1 mg/dL (8.5-10.1); Chloride, Blood 99 mmol/L (98-108); Creatinine, Blood 5.14 mg/dL (0.60-1.20); Glomerular Filtration Rate 11 (60-); Glucose, Blood 119 mg/dL (70-99); Phosphorus, Blood 8.5 mg/dL (2.5-4.9); Potassium, Blood 4.3 mmol/L (3.5-5.5); Sodium, Blood 135 mmol/L (136-145)
[2022-08-28 08:20] VITALS: BP 104/56
[2022-08-28 11:41] VITALS: BP 95/46
--- NOTE | 2022-08-28 12:15 | NUR ---
AM NOTE: PATIENT ALERT AND ORIENTED. NEEDING MOTIVATION TO PARTICIPATE IN CARES. DENIES NUMBNESS/TINGLING. COMPLAINS OF PAIN THROUGHOUT BODY, "EVERYWHERE". BEDREST AT THIS TIME WITH Q2 TURNS. SR WITH HR 70-90'S. DENIES CHEST PAIN/PRESSURE/PALPITATIONS. BP SOFT, PO MEDS GIVEN PER EMAR. ALBUMIN INFUSION THIS AM PER DR. JACOB FOLLOWED BY IV BUMEX. WEARING CPAP WHEN SLEEPING. ON 8L HIGH FLOW NASAL CANNULA SATING MID 90'S. LUNGS SOUNDING CLEAR AND DIM IN BASES. DENIES COUGH/SOB. TEMP VELASCO IN PLACE DRAINING TO GRAVITY. CATH CARE/BED BATH COMPLETED THIS AM. DENIES ABDOMINAL PAIN/NAUSEA. EATING SMALL AMOUNTS. BOWEL TONES PRESENT. PPP. WOUNDS SCATTERED THROUGHOUT BLE, BUTTOCK/COCCYX/UPPER THIGHS, SCROTUM, AND ABDOMINAL FOLDS/PANNUS. WOUND CARE COMPLETED THIS AM BY THIS RN. WOUND CARE TO REDRESS LEG WOUNDS. ACHS BLOOD SUGARS. DR. JACOB AWARE OF PATIENT LABS THIS AM. NO CHANGES TO MEDS. LEFT UPPER ARM POWERGLIDE WNL. ABX INFUSED. AT BEDSIDE AND UPDATED ON PLAN OF CARE.
--- NOTE | 2022-08-28 13:07 | NUR ---
ELECTRONICS COMMODITY MANAGER IN ROOM AT THIS TIME.
[2022-08-28 16:02] VITALS: BP 116/53
--- NOTE | 2022-08-28 17:44 | NUR ---
SHIFT SUMMARY: NO ACUTE CHANGES, SEE PREVIOUS NOTES. NO CHANGES TO NEURO. PATIENT AWAKE AND ALERT MOST OF SHIFT, TAKING SMALL NAPS. MEDICAL STATUS NO TELE. BP IMPROVED THROUGHOUT SHIFT. REMAINS ON 8L HIGH FLOW SATING MID 90'S. TEMP VELASCO REMAINS IN PLACE WITH CLEAR/YELLOW OUTPUT. EQUIPMENT CLEANER IN TO CLEAN/DRESS BLE. REMAINS AT BEDSIDE. Q2 TURNS AND NEEDED. A+D OINTMENT APPLIED TO COCCYX/GLUTEAL FOLDS AND SCROTUM THROUGHOUT SHIFT PER EQUIPMENT CLEANER. AC BLOOD SUGARS. CALL LIGHT IN REACH. FIRE SAFETY AND IGNITION RISK REVIEWED WITH PATIENT AND .
[2022-08-28 19:04] VITALS: BP 117/51
--- NOTE | 2022-08-28 19:20 | NUR ---
ASSUMPTION OF CARE: NO SIGNS OF DISTRESS, COOPERATIVE WITH QUESTIONS, AGREES TO Q2 TURNS, PATIENT RECENTLY CHANGED AND WOUND CARE PREFORMED. DENIES CHEST PAIN PRESSURE OR SOB. VSS, POWERGLIDE FLUSHES AND DRAWS WELL. 8L VIA NC FOR SPO2 94%, WILL CONTINUE TO MONITOR UNTIL SHIFT CHANGE. NO CONCERNS FROM THIS RN AT THIS TIME.
[2022-08-29 02:52] VITALS: BP 108/55
[2022-08-29 03:37] LABS: Hematocrit 33.5 % (37.0-53.0); Hemoglobin 10.9 g/dL (13.5-17.5)
[2022-08-29 04:05] LABS: Magnesium, Blood 2.4 mg/dL (1.6-2.4)
[2022-08-29 04:19] LABS: Albumin, Blood 2.1 g/dL (3.4-5.0); Anion Gap 12 mmol/L (6-16); Blood Urea Nitrogen 115 mg/dL (8-24); CO2, Blood 27 mmol/L (21-32); Calcium, Blood 7.1 mg/dL (8.5-10.1); Chloride, Blood 99 mmol/L (98-108); Glomerular Filtration Rate 13 (60-); Glucose, Blood 127 mg/dL (70-99); Phosphorus, Blood 8.2 mg/dL (2.5-4.9); Sodium, Blood 138 mmol/L (136-145)
--- NOTE | 2022-08-29 06:38 | NUR ---
NO CHANGE FROM ASSUMPTION OF CARFE TR BAND RECOVERED, FIRE AND OXYGEN SAFETY PREFORMED NO CONCERNS FROM PATIENT OR THIS RN EMILEE SLEPT ON CPAP THROUGH THE NIGHT, WILL CONTINUE TO MONITOR UNTIL SHIFT CHANGE
--- NOTE | 2022-08-29 06:40 | NUR ---
END OF SHIFT: PATIENT HAS NO CHANGE FROM ASSUMPTION OF CARE, CPAP THROUGH THE NIGHT FIRE AND OXYGEN SAFETY PREFORMED NO CONCERNS FROM THIS RN WILL CONTINUE TO MONITOR UNTIL SHIFT CHANGE.
[2022-08-29 08:06] VITALS: BP 122/72
--- NOTE | 2022-08-29 09:25 | NUR ---
AM NOTE: PATIENT ALERT AND ORIENTED. SLEEPY THIS AM. NEEDING MOTIVATION TO PARTICIPATE IN TURNS AND CARES. DENIES NUMBNESS/TINGLING. PAIN SCATTERED THROUGHOUT RELATED TO WOUNDS. ON 8L HIGH FLOW NASAL CANNULA SATING MID 90'S. LUNGS SOUNDING CLEAR AND DIM IN BASES. OCCASIONAL NONPRODUCTIVE COUGH. MEDICAL STATUS, NO TELE. BP IMPROVED FROM YESTERDAY. PO MIDODRINE GIVEN PER EMAR. EDEMA NOTED TO BLE AND BUE. DENIES ABDOMINAL PAIN/NAUSEA. EATING WNL. TEMP VELASCO CATH IN PLACE DRAINING CLEAR/YELLOW URINE. CATH CARE COMPLETED THIS AM. WOUNDS SCATTERED THROUGHOUT AMANDA AREA/BUTTOCKS. A+D OINTMENT APPLIED TO WOUNDS, UNSTAGABLE PRESSURE ULCER TO RIGHT SIDE OF BUTTOCKS, MEPILEX COVERING. LEG DRESSINGS C/D/I. AT BEDSIDE. DR. JACOB AND DR. NAJERA TO BEDSIDE THIS AM. CALL LIGHT IN REACH. ABX INFUSED. FIRE SAFETY/IGNIGTION RISK WITH OXYGEN REVIEWED WITH PATIENT AND . PATIENT AND DENY ANY IGNITION SOURCES.
[2022-08-29 11:01] VITALS: BP 124/59
[2022-08-29 12:03] VITALS: BP 120/60
[2022-08-29 15:19] VITALS: BP 138/61
--- NOTE | 2022-08-29 16:42 | NUR ---
TRANSFER NOTE: PATIENT REMAINS ALERT AND ORIENTED. INTERMIT PAIN RELATED TO WOUNDS, MEDICATED WITH NORCO PER EMAR WITH GOOD RELIEF. TITRATED DOWN TO 6L HIGH FLOW NASAL CANNULA SATING MID 90'S. BP IMPROVED FROM YESTERDAY. CONTINUES TO DENY CHEST PAIN/PRESSURE. BLE DRESSING CHANGED PER STADIUM ATTENDANT NOTE. BED BATH GIVEN. REMAINED AT BEDSIDE AND UPDATED THROUGHOUT SHIFT. REPORTED OFF TO IVIS RN. PATIENT LEFT UNIT WITH ALL PERSONAL BELONGINGS.
--- NOTE | 2022-08-29 17:00 | NUR ---
ASSUMED CARE OF PT AFTER RECIEVING REPORT FROM TONIE HERNANDEZ. PT WAS MOANING ON HIS WAY UP DUE TO LEG PAIN AFTER DRESSING CHANGES. MEDICATED WITH IV FENTANYL. PT WAS ON 6L O2 VIA NC, AT BEDSIDE. NO FURTHER NEEDS AT THIS TIME.
[2022-08-29 19:50] VITALS: BP 128/54
[2022-08-30 03:54] VITALS: BP 118/65
--- NOTE | 2022-08-30 05:51 | NUR ---
PT IS A&O4, BEDREST, 6L NC, VSS, DRESSINGS TO BILATERAL LOWER EXT CDI, MEDICATED FOR PAIN X2 OVERNIGHT, NO ACUTE OVERNIGHT EVENTS, FIRE IGNITION EDUCATION PROVIDED, CONTINUE POC
[2022-08-30 05:54] LABS: Hematocrit 35.9 % (37.0-53.0); Hemoglobin 11.5 g/dL (13.5-17.5)
[2022-08-30 06:44] LABS: Albumin, Blood 2.5 g/dL (3.4-5.0); Anion Gap 12 mmol/L (6-16); Blood Urea Nitrogen 115 mg/dL (8-24); Bun/Creatinine Ratio 29.6 (12.0-20.0); CO2, Blood 27 mmol/L (21-32); Calcium, Blood 7.2 mg/dL (8.5-10.1); Chloride, Blood 98 mmol/L (98-108); Creatinine, Blood 3.89 mg/dL (0.60-1.20); Glomerular Filtration Rate 15 (60-); Glucose, Blood 121 mg/dL (70-99); Magnesium, Blood 2.3 mg/dL (1.6-2.4); Phosphorus, Blood 6.9 mg/dL (2.5-4.9); Potassium, Blood 3.8 mmol/L (3.5-5.5); Sodium, Blood 137 mmol/L (136-145)
[2022-08-30 08:17] VITALS: BP 116/81
--- NOTE | 2022-08-30 11:45 | NUR ---
PPROVIDED INCENTIVE SPIROMETER TO PATIENT. EDUCATED ON USE, HE VERBALIZED UNDERSTANDING. PT REQUESTED HIS CPAP BE PLACED ON. HE REPORTS THIS ONE IS MORE COMFORTABLE THAN HIS HOME CPAP.
--- NOTE | 2022-08-30 17:59 | NUR ---
SHIFT SUMMARY PT HAS BEEN SLEEPY T/O SHIFT WILL AWAKEN AND ANSWER QUESTIONS APPROPRIATLY. REMAINS ON 7L NC OR 7L WITH CPAP WHILE SLEEPING. PT DESATS QUICKLY WHEN REMOVED, BUT RECOVERS FAST. VELASCO IN PLACE PATENT AND DRAINING. DRESSINGS REMAINS CDI. PT HAS BEEN TOLERATING REPOSITIONING Q2 HOURS. MEDICATION PER EMAR FOR PAIN. TOLERABLE WHEN MEDICATED.
[2022-08-30 19:22] VITALS: BP 128/50
--- NOTE | 2022-08-31 04:12 | NUR ---
REMEDIATION TECHNICIAN SUMMARY NO ACUTE EVENTS OVERNIGHT. A&OX4. PATIENT EFFECTIVELY COMMUNICATES NEEDS. AT THE BEGINNING OF THE SHIFT, PATIENT APPEARED LETHARGIC IN CHARACTER, HOWEVER, HIS MENTATION PROGRESSIVELY IMPROVED THROUGHOUT THE NIGHT. PAIN ASSESSED AND MEDICATED PER EMAR. VSS. RR EVEN AND UNLABORED ON 7L/MIN O2. PATIENT INTOLERANT OF CPAP. VELASCO CATHETER IS DRAINING YELLOW-COLORED URINE. MULTIPLE WOUNDS WITH OVERLYING DRESSINGS THAT ARE C/D/I. Q-2HR TURING SCHEDULE MAINTAINED. BED LOW AND LOCKED. CALL LIGHT WITHIN REACH. THIS RN WILL CONTINUE TO MONITOR.
[2022-08-31 04:55] VITALS: BP 123/64
[2022-08-31 05:11] LABS: BASOPHILS ABSOLUTE AUTO 0.08 K/mm3 (0.00-0.23); BASOPHILS PERCENT AUTO 1 % (0-2); EOSINOPHILS ABSOLUTE AUTO 0.72 K/mm3 (0.00-0.68); EOSINOPHILS PERCENT AUTO 8 % (0-6); Hematocrit 36.9 % (37.0-53.0); Hemoglobin 11.8 g/dL (13.5-17.5); IMMATURE GRAN PERCENT AUTO 2 % (0-1); LYMPHOCYTES ABSOLUTE AUTO 1.64 K/mm3 (0.84-5.20); LYMPHOCYTES PERCENT AUTO 18 % (21-46); MONOCYTES ABSOLUTE AUTO 0.58 K/mm3 (0.16-1.47); MONOCYTES PERCENT AUTO 6 % (4-13); Mean Corpuscular HGB 29.9 pg (26.0-34.0); Mean Corpuscular Volume 94 fL (80-100); Mean Platelet Volume 9.9 fL (9.1-12.4); NEUTROPHILS ABSOLUTE AUTO 6.06 K/mm3 (1.96-9.15); NEUTROPHILS PERCENT AUTO 65 % (41-73); Platelet Count 262 K/mm3 (150-400); RDW Coefficient Variation 15.1 % (11.7-14.2); RDW Standard Deviation 52.1 fL (35.1-46.3); Red Blood Cell Count 3.94 M/mm3 (4.30-5.90); White Blood Cell Count 9.28 K/mm3 (4.00-11.30)
[2022-08-31 05:44] LABS: Albumin, Blood 2.5 g/dL (3.4-5.0); Anion Gap 16 mmol/L (6-16); Blood Urea Nitrogen 116 mg/dL (8-24); Bun/Creatinine Ratio 33.4 (12.0-20.0); CO2, Blood 26 mmol/L (21-32); Calcium, Blood 7.5 mg/dL (8.5-10.1); Chloride, Blood 94 mmol/L (98-108); Creatinine, Blood 3.47 mg/dL (0.60-1.20); Glomerular Filtration Rate 18 (60-); Glucose, Blood 136 mg/dL (70-99); Magnesium, Blood 2.4 mg/dL (1.6-2.4); Phosphorus, Blood 6.7 mg/dL (2.5-4.9); Potassium, Blood 3.9 mmol/L (3.5-5.5); Sodium, Blood 136 mmol/L (136-145)
[2022-08-31 07:44] VITALS: BP 130/54
[2022-08-31 12:44] VITALS: BP 116/58
--- NOTE | 2022-08-31 15:48 | NUR ---
WOUND CARE BLE DRESSINGS CHANGED. WOUNDS ARE MUCH IMPROVED. PANNUS HAS ALMOST CLEARED. EDUCATION ON DIABETIC WOUND CARE AND GLYCEMIC CONTROL PROVIDED TO PT AND SPOUSE.
[2022-08-31 15:52] VITALS: BP 130/59
--- NOTE | 2022-08-31 16:57 | NUR ---
ATTEMPTED TO EDUCATE ABOUT OXYGEN USE IN THE HOSPITAL, FLAMMABILITY OF OXYGEN, AND SAFETY R/T OXYGEN USE WHILE IN THE HOSPITAL. PATIENT HAS BEEN LETHARGIC AND PAINFUL ALL SHIFT, WAS UNABLE TO VERBALIZE UNDERSTANDING OF THIS EDUCATION. SEARCH OF PERSONAL BELONGINGS DID NOT SHOW ANY INCENDIARY DEVICES SUCH THEATRE PROFESSOR OR MATCHES. WILL CONTINUE TO MONITOR.
--- NOTE | 2022-08-31 17:06 | NUR ---
SHIFT SUMMARY: NO ACUTE EVENTS. C/O PAIN IN BLE AND BUTTOCKS, LIKELY FROM WOUNDS; MEDICATED PER EMAR, SLEPT AFTER MED ADMINISTRATION. VELASCO DRAINING ADEQUATE URINE. ON 7 L/MIN NC HUMIDIFIED (BASELINE IS 2L) AND CONT OXIMETRY, WITH SATS 90-95% DEPENDING ON LOC. 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 BARELY TOLERATED BED BATH TODAY. CBG < 150, NO COVERAGE NEEDED, APPETITE IS POOR, DOES NOT CARE FOR THE FOOD.
[2022-08-31 17:45] VITALS: BP 110/56
[2022-08-31 20:28] VITALS: BP 128/71
--- NOTE | 2022-09-01 03:32 | NUR ---
JOCKEY AGENT SUMMARY NO ACUTE EVENTS OVERNIGHT. A&OX4. PATIENT WAS LETHARGIC WHEN THIS RN ASSUMED CARE, HOWEVER, HIS MENTATION PROGRESSIVELY IMPROVED THROUGHOUT THE SHIFT. AROUND 0245, PATIENT REQUESTED A FAN AND COLD PEPSI. VSS. RR EVEN AND UNLABORED ON 7L/MIN O2. CONTINUOUS BIOX >90%. VELASCO CATHETER DRAINING YELLOW-COLORED URINE. EXTENSIVE WOUNDS WITH OVERLYING DRESSINGS THAT ARE C/D/I. PER REPORT, WOUND CARE WAS PROVIDED BY FISH AND WILDLIFE BIOLOGIST ON DAY SHIFT, 08/31. BED LOW AND LOCKED. CALL LIGHT WITHIN REACH. THIS RN WILL CONTINUE TO MONITOR. PATIENT EDUCATED ON IGNITION SOURCES AND RISK OF INJURY WHILE USING OXYGEN. PATIENT EXPRESSES UNDERSTANDING. NO SIGNS OF IGNITION SOURCES OR TOBACCO PRODUCTS.
[2022-09-01 04:54] VITALS: BP 147/72
--- NOTE | 2022-09-01 04:57 | NUR ---
PATIENT EDUCATION PATIENT EDUCATED ON IGNITION SOURCES AND RISKS OF IGNITION WHILE OXYGEN IS IN USE. PATIENT DENIES HAVING POSSIBLE IGNITION SOURCES AND/OR TOBACCO PRODUCTS. PATIENT IS AGREEABLE WITH EDUCATION.
[2022-09-01 05:06] LABS: Hematocrit 37.1 % (37.0-53.0); Hemoglobin 11.9 g/dL (13.5-17.5)
[2022-09-01 05:36] LABS: Albumin, Blood 2.4 g/dL (3.4-5.0); Anion Gap 13 mmol/L (6-16); Blood Urea Nitrogen 109 mg/dL (8-24); Bun/Creatinine Ratio 33.6 (12.0-20.0); CO2, Blood 27 mmol/L (21-32); Calcium, Blood 7.7 mg/dL (8.5-10.1); Chloride, Blood 95 mmol/L (98-108); Creatinine, Blood 3.24 mg/dL (0.60-1.20); Glomerular Filtration Rate 19 (60-); Glucose, Blood 151 mg/dL (70-99); Magnesium, Blood 2.2 mg/dL (1.6-2.4); Phosphorus, Blood 6.2 mg/dL (2.5-4.9); Potassium, Blood 3.8 mmol/L (3.5-5.5); Sodium, Blood 135 mmol/L (136-145)
[2022-09-01 07:45] VITALS: BP 103/47
--- NOTE | 2022-09-01 10:21 | NUR ---
PT RESTING IN BED AT THIS TIME WITH HIGHFLOW NASAL CANULA IN. PT SLUMPED SLIGHTLY TO LEFT SIDE. OFFERED TO REPOSITION PATIENT, HE DECLINED SAYING HE WAS COMFORTABLE AND ABLE TO SLEEP AT THIS TIME. HIS SATS REMAIN 93% OR HIGHER.
[2022-09-01 11:40] VITALS: BP 134/65
--- NOTE | 2022-09-01 15:34 | NUR ---
SHIFT SUMMARY PT REMAINS ORIENTED, TOWARDS END OF THE DAY PATIENT BECOMES VERY TIRED AND DIFFICULT TO AROUSE. WILL WAKE UP AND ANSWER QUESTIONS APPROPRIATLY. CONTINUES TO ASK FOR NARCOTICS T/O THE DAY WHILE SLEEPING SOUNDLY. BED BATH DONE DURING SHIFT. WHILE CLEANING AMANDA AREA SKIN STUCK TOGETHER ON THE LEFT SIDE OF AMANDA AREA UNDER SCROTUM. GENTLY CLEANSED WITH SOAP AND WATER AND SKIN SEPERATED REVEALING A HEALING SORE. PICTURE PLACED IN CHART. PT REPORTED THAT SPOT HAS BEEN HURTING HIM FOR A WHILE. SLING PLACED UNDER SCROTUM, PT REPORTS IT FEELS MUCH BETTER AT THIS TIME. WOUNDS ON LEGS IMPROVING HER WOUND CARE. CDI AT THIS TIME. DRESSING TO COCCYX CHANGED AT THIS TIME.
[2022-09-01 16:44] VITALS: BP 134/73
[2022-09-01 20:41] VITALS: BP 120/57
[2022-09-02 03:06] VITALS: BP 117/61
--- NOTE | 2022-09-02 04:31 | NUR ---
SHIFT SUMMARY 76 YR M ADMITTED ON 08/25/22 FOR [facility]. FULL CODE. NO ACUTE CHANGES THIS SHIFT. PT WAS VERY DROWSY AT BEGINNING OF SHIFT AND FELL ASLEEP SHORTLY THEREAFTER. HE HAS SLEPT FOR MOST OF THE NIGHT. HE WOKE UP ONCE AND REQUESTED PAIN MEDS WHICH HE WAS GIVEN PER EMAR. BANDAGING ON BLE IS C/D/I. O2 SATS HAVE REMAINED WITHIN NORMAL LIMITS. VELASCO IS PATENT AND DRAINING TO GRAVITY.
[2022-09-02 05:15] LABS: BASOPHILS PERCENT AUTO 1 % (0-2); EOSINOPHILS ABSOLUTE AUTO 0.77 K/mm3 (0.00-0.68); EOSINOPHILS PERCENT AUTO 8 % (0-6); Hematocrit 36.6 % (37.0-53.0); Hemoglobin 11.7 g/dL (13.5-17.5); IMMATURE GRAN ABSOLUTE AUTO 0.34 K/mm3 (0.00-0.10); IMMATURE GRAN PERCENT AUTO 4 % (0-1); LYMPHOCYTES ABSOLUTE AUTO 1.58 K/mm3 (0.84-5.20); LYMPHOCYTES PERCENT AUTO 17 % (21-46); MONOCYTES ABSOLUTE AUTO 0.52 K/mm3 (0.16-1.47); MONOCYTES PERCENT AUTO 6 % (4-13); Mean Corpuscular HGB 29.9 pg (26.0-34.0); Mean Corpuscular Volume 94 fL (80-100); NEUTROPHILS PERCENT AUTO 65 % (41-73); Platelet Count 243 K/mm3 (150-400); RDW Coefficient Variation 14.8 % (11.7-14.2); RDW Standard Deviation 51.4 fL (35.1-46.3); Red Blood Cell Count 3.91 M/mm3 (4.30-5.90); White Blood Cell Count 9.51 K/mm3 (4.00-11.30)
[2022-09-02 05:44] LABS: Albumin, Blood 2.4 g/dL (3.4-5.0); Anion Gap 13 mmol/L (6-16); Blood Urea Nitrogen 113 mg/dL (8-24); Bun/Creatinine Ratio 36.9 (12.0-20.0); CO2, Blood 27 mmol/L (21-32); Calcium, Blood 7.8 mg/dL (8.5-10.1); Chloride, Blood 95 mmol/L (98-108); Creatinine, Blood 3.06 mg/dL (0.60-1.20); Glomerular Filtration Rate 21 (60-); Glucose, Blood 140 mg/dL (70-99); Magnesium, Blood 2.3 mg/dL (1.6-2.4); Phosphorus, Blood 5.9 mg/dL (2.5-4.9); Potassium, Blood 3.7 mmol/L (3.5-5.5); Sodium, Blood 135 mmol/L (136-145)
[2022-09-02 08:16] VITALS: BP 114/60
[2022-09-02 12:59] LABS: Influenza A, PCR NEGATIVE (NEGATIVE); Influenza B, PCR NEGATIVE (NEGATIVE); Resp Syncytial Virus, PCR NEGATIVE (NEGATIVE); SARS-Cov-2 (COVID-19) PCR, MMC NEGATIVE (NEGATIVE)
[2022-09-02] MEDS ORDERED: Bumetanide2 MG PO (15:35)
[2022-09-02] MEDS ORDERED: Calcium Acetat667 MG PO (15:36)
[2022-09-02] MEDS ORDERED: HUMALOG KW100 UNIT/1 SC (15:36)
[2022-09-02] MEDS ORDERED: EUCERIN INTENS250 M1 TOP (15:37)
[2022-09-02] MEDS ORDERED: MICONAZOLE NITR85 GM TOP (15:38)
[2022-09-02] MEDS ORDERED: MIDO5 PO (15:38)
[2022-09-02] MEDS ORDERED: CEPH500 PO (15:39)
[2022-09-02] MEDS ORDERED: VISBIOME 112.51 EACH PO (15:39)
[2022-09-02] MEDS ORDERED: NYSTRIT TOP (15:39)
[2022-09-02] MEDS ORDERED: A AND D OINTM42.5 G1 TOP (15:40)
[2022-09-02] MEDS ORDERED: ENOX40I SC (15:40)
--- NOTE | 2022-09-02 16:30 | NUR ---
SHIFT SUMMARY AND DISCHARGE TO [facility] PATIENT ALERT AND INTERACTIVE. EASILY IRRITABLE. PATIENT TRANSFEREDED TO [facility]. DISCHARGE INSTRUCTIONS SENT WITH PATIENT. REPORT CALLED TO [facility]. POWER GLIDE IN L UPPER ARM IN PLACE AT DISCHARGE. PATIENT ON 7L NC. PATIENT ABLE TO FEED SELF FOR MEALS AND PREFERED TO DRINK DIET PEPSI. PATIENT STATES HE IS LOOKING FORWARD TO WHEN HE CAN GET HOME. PATIENT NOT PLANNING TO STAY AT REHAB FOR LONG. WOUND CARE MANAGED BY WOUND CLINIC. CARE MANAGEMENT ASSISTED WITH TRANSFER.
== END 2022-09-02 16:36 | DRG 682 ==
LOC: ER 17:18 → PCU 20:56 → MEDS 20:56 → PCU 22:20 → MEDS 08-29 16:46
PROVIDERS: Emergency Medicine; Hospitalist; Internal Medicine; Internal Medicine Nephrology; Nurse Practitioner Acute Care; Student in an Organized Health Care Education/Training Program; ADMIT Student in an Organized Health Care Education/Training Program
PROC: 0T9B70Z Drainage of Bladder with Drainage Device, Via Natural or Artificial Opening (ICD-10-PCS; principal; 2022-08-25)
PROC: 5A09357 Assistance with Respiratory Ventilation, Less than 24 Consecutive Hours, Continuous Positive Airway Pressure (ICD-10-PCS; 2022-08-25)
PROC: 5A0935A Assistance with Respiratory Ventilation, Less than 24 Consecutive Hours, High Flow/Velocity Cannula (ICD-10-PCS; 2022-08-28)
DX: N17.9 Acute kidney failure, unspecified (principal); J96.21 Acute and chronic respiratory failure with hypoxia; R65.10 Systemic inflammatory response syndrome (SIRS) of non-infectious origin without acute organ dysfunction; Z68.42 Body mass index [BMI] 45.0-49.9, adult; I13.0 Hypertensive heart and chronic kidney disease with heart failure and stage 1 through stage 4 chronic kidney disease, or unspecified chronic kidney disease; E87.20 Acidosis, unspecified; E87.1 Hypo-osmolality and hyponatremia; E11.22 Type 2 diabetes mellitus with diabetic chronic kidney disease; G47.33 Obstructive sleep apnea (adult) (pediatric); J44.9 Chronic obstructive pulmonary disease, unspecified; N18.30 Chronic kidney disease, stage 3 unspecified; B87.1 Wound myiasis; L89.150 Pressure ulcer of sacral region, unstageable; D63.1 Anemia in chronic kidney disease; I87.2 Venous insufficiency (chronic) (peripheral); I50.9 Heart failure, unspecified; E78.00 Pure hypercholesterolemia, unspecified; E66.01 Morbid (severe) obesity due to excess calories; E87.5 Hyperkalemia; E86.0 Dehydration; E87.70 Fluid overload, unspecified; N25.81 Secondary hyperparathyroidism of renal origin; E11.51 Type 2 diabetes mellitus with diabetic peripheral angiopathy without gangrene; E83.39 Other disorders of phosphorus metabolism; E86.9 Volume depletion, unspecified; E86.1 Hypovolemia; E88.09 Other disorders of plasma-protein metabolism, not elsewhere classified; E87.6 Hypokalemia; Z20.822 Contact with and (suspected) exposure to COVID-19; Z86.73 Personal history of transient ischemic attack (TIA), and cerebral infarction without residual deficits; Z88.0 Allergy status to penicillin; Z88.8 Allergy status to other drugs, medicaments and biological substances; Z79.899 Other long term (current) drug therapy; Z79.82 Long term (current) use of aspirin; Z79.51 Long term (current) use of inhaled steroids; Z79.02 Long term (current) use of antithrombotics/antiplatelets; Z79.4 Long term (current) use of insulin
CPT/HCPCS: 0241U; 36415; 51702; 71045; 71046; 76770; 80053; 80069; 81001; 82374; 82803; 82947; 83605; 83735; 83880; 84132; 84443; 84484; 85014; 85018; 85025; 85027; 85610; 87040; 93005; 93010; 94660; 94760; 94762; 96374-59; 96375-59; 97110; 97162; 99285-25; A9270; C1751; J0612; J0690; J1170; J1644; J1815; J3010; J7030; J7050; J7070; P9047

== ENCOUNTER → 2022-09-22 | Outpatient (CLI) | payer OTHER ==
[~2022-09-22] MED LIST changes: +A AND D OINTM42.5 G1 TOP; +Bumetanide2 MG PO; +Calcium Acetat667 MG PO; +ENOX40I SC; +EUCERIN INTENS250 M1 TOP; +FARXIGA10 MG PO; +Flomax0.4 MG PO; +HUMALOG KW100 UNIT/1 SC; +LOSA25 PO; +MICONAZOLE NITR85 GM TOP; +MIDO5 PO; +NYSTRIT TOP; +PRAM.5 PO; +VISBIOME 112.51 EACH PO
[2022-09-22 18:15] LABS: BASOPHILS ABSOLUTE AUTO 0.12 K/mm3 (0.00-0.23); BASOPHILS PERCENT AUTO 1 % (0-2); EOSINOPHILS ABSOLUTE AUTO 0.76 K/mm3 (0.00-0.68); EOSINOPHILS PERCENT AUTO 7 % (0-6); Hematocrit 43.9 % (37.0-53.0); Hemoglobin 14.9 g/dL (13.5-17.5); IMMATURE GRAN ABSOLUTE AUTO 0.06 K/mm3 (0.00-0.10); IMMATURE GRAN PERCENT AUTO 1 % (0-1); LYMPHOCYTES ABSOLUTE AUTO 2.07 K/mm3 (0.84-5.20); LYMPHOCYTES PERCENT AUTO 18 % (21-46); MONOCYTES ABSOLUTE AUTO 0.86 K/mm3 (0.16-1.47); MONOCYTES PERCENT AUTO 8 % (4-13); Mean Corpuscular HGB 30.7 pg (26.0-34.0); Mean Corpuscular HGB Conc 33.9 g/dL (31.5-36.5); Mean Corpuscular Volume 90 fL (80-100); Mean Platelet Volume 11.2 fL (9.1-12.4); NEUTROPHILS ABSOLUTE AUTO 7.39 K/mm3 (1.96-9.15); NEUTROPHILS PERCENT AUTO 66 % (41-73); Platelet Count 259 K/mm3 (150-400); RDW Coefficient Variation 15.5 % (11.7-14.2); RDW Standard Deviation 50.6 fL (35.1-46.3); Red Blood Cell Count 4.86 M/mm3 (4.30-5.90); White Blood Cell Count 11.26 K/mm3 (4.00-11.30)
[2022-09-22 19:41] LABS: Calcium, Blood 8.5 mg/dL (8.5-10.1); Creatinine, Blood 2.43 mg/dL (0.60-1.20); Potassium, Blood 3.1 mmol/L (3.5-5.5)
== END | disposition home or self-care (01) ==
LOC: LAB SHORT 16:45 → LAB 16:45
PROVIDERS: Hospitalist
DX: N17.0 Acute kidney failure with tubular necrosis (principal)
CPT/HCPCS: 80048; 85025

== ENCOUNTER 2022-09-28 02:06 | Day surgery (SDC) | payer OTHER | END 2022-09-28 22:38 | disposition home or self-care (01) | LOC: WOUND 02:06 | DX: L89.322 Pressure ulcer of left buttock, stage 2 (principal); G40.909 Epilepsy, unspecified, not intractable, without status epilepticus; G47.33 Obstructive sleep apnea (adult) (pediatric); Z86.73 Personal history of transient ischemic attack (TIA), and cerebral infarction without residual deficits; Z88.8 Allergy status to other drugs, medicaments and biological substances; E11.22 Type 2 diabetes mellitus with diabetic chronic kidney disease; N18.9 Chronic kidney disease, unspecified; I12.9 Hypertensive chronic kidney disease with stage 1 through stage 4 chronic kidney disease, or unspecified chronic kidney disease | CPT/HCPCS: G0463 ==

== ENCOUNTER → 2022-09-30 | Outpatient (CLI) | payer OTHER ==
[2022-09-30 11:42] LABS: Bun/Creatinine Ratio 21.4 (12.0-20.0); Calcium, Blood 9.7 mg/dL (8.5-10.1); Creatinine, Blood 2.1 mg/dL (0.60-1.20); Potassium, Blood 4.6 mmol/L (3.5-5.5)
== END ==
LOC: LAB 09:15 → LAB SHORT 09:15
PROVIDERS: Hospitalist
DX: E87.1 Hypo-osmolality and hyponatremia (principal)
CPT/HCPCS: 80048

== ENCOUNTER 2022-10-07 15:16 | Emergency (ER) | payer OTHER ==
[~2022-10-07] VITALS: Ht 170.2 cm; Wt 113.4 kg
[2022-10-07 16:32] LABS: BASOPHILS ABSOLUTE AUTO 0.07 K/mm3 (0.00-0.23); BASOPHILS PERCENT AUTO 1 % (0-2); EOSINOPHILS ABSOLUTE AUTO 0.09 K/mm3 (0.00-0.68); EOSINOPHILS PERCENT AUTO 1 % (0-6); Hematocrit 41.1 % (37.0-53.0); IMMATURE GRAN ABSOLUTE AUTO 0.12 K/mm3 (0.00-0.10); IMMATURE GRAN PERCENT AUTO 1 % (0-1); LYMPHOCYTES ABSOLUTE AUTO 1.34 K/mm3 (0.84-5.20); LYMPHOCYTES PERCENT AUTO 15 % (21-46); MONOCYTES ABSOLUTE AUTO 0.64 K/mm3 (0.16-1.47); MONOCYTES PERCENT AUTO 7 % (4-13); Mean Corpuscular HGB 30.8 pg (26.0-34.0); Mean Corpuscular HGB Conc 34.1 g/dL (31.5-36.5); Mean Corpuscular Volume 90 fL (80-100); NEUTROPHILS ABSOLUTE AUTO 6.78 K/mm3 (1.96-9.15); NEUTROPHILS PERCENT AUTO 75 % (41-73); NRBC ABSOLUTE 0.02 K/mm3 (0.00-0.02); NRBC Auto 0.2 /100 WBC (0.0-0.2); RDW Coefficient Variation 15.5 % (11.7-14.2); RDW Standard Deviation 51.5 fL (35.1-46.3); Red Blood Cell Count 4.55 M/mm3 (4.30-5.90); White Blood Cell Count 9.04 K/mm3 (4.00-11.30)
[2022-10-07 16:35] LABS: Albumin, Blood 2.8 g/dL (3.4-5.0); Albumin/Globulin Ratio 0.6 (0.8-1.8); Bilirubin, Total 1.2 mg/dL (0.1-1.0); Bun/Creatinine Ratio 16.9 (12.0-20.0); Calcium, Blood 10.3 mg/dL (8.5-10.1); Creatinine, Blood 2.43 mg/dL (0.60-1.20); Globulin, Blood 4.8 g/dL (2.2-4.0); Potassium, Blood 4.4 mmol/L (3.5-5.5); Total Protein, Blood 7.6 g/dL (6.4-8.2)
[2022-10-07 16:57] LABS: Mean Platelet Volume 10.4 fL (9.1-12.4); Platelet Count 157 K/mm3 (150-400)
[2022-10-07 17:47] LABS: Source, Urine Foley catheter
[2022-10-07 17:51] LABS: Appearance, Urine Hazy (Clear); Bilirubin, Urine Neg (Neg); Blood, Urine 4+ (Neg); Glucose Qualitative, Urine 4+ (Neg); Ketones, Urine 1+ (Neg); Leukocyte Esterase, Urine 2+ (Neg); Nitrite, Urine Pos (Neg); Protein, Urine 3+ (Neg); Specific Gravity, Urine 1.015 (1.003-1.022); Urobilinogen, Urine NORM (Normal)
[2022-10-07 17:58] LABS: Color, Urine Pale Yellow (P-Yellow)
[2022-10-07 17:59] LABS: Bacteria Many /hpf; Squamous Epithelial Cells Not Seen /hpf (Few); White Blood Cells, Urine 25-50 /hpf (0-5)
[2022-10-07] MEDS ORDERED: CEPH500 PO ×2 (18:18→18:19)
[2022-10-07 19:30] VITALS: BP 118/73
== END 2022-10-07 19:50 | disposition home or self-care (01) ==
LOC: ER 15:16
PROVIDERS: Physician Assistant
DX: N39.0 Urinary tract infection, site not specified (principal); Z88.0 Allergy status to penicillin; Z88.8 Allergy status to other drugs, medicaments and biological substances; Z79.899 Other long term (current) drug therapy; Z79.82 Long term (current) use of aspirin; Z79.4 Long term (current) use of insulin; I11.0 Hypertensive heart disease with heart failure; E11.9 Type 2 diabetes mellitus without complications; E78.00 Pure hypercholesterolemia, unspecified; I50.9 Heart failure, unspecified; J44.9 Chronic obstructive pulmonary disease, unspecified; G47.33 Obstructive sleep apnea (adult) (pediatric)
CPT/HCPCS: 51702; 80053; 81001; 85025; 87077; 87086; 87186; 99284-25; A9270

== ENCOUNTER → 2022-12-24 | Outpatient (CLI) | payer OTHER ==
[2022-12-24 17:11] LABS: Hemoglobin 13.4 g/dL (13.5-17.5)
[2022-12-24 20:14] LABS: Albumin, Blood 3.1 g/dL (3.4-5.0); Anion Gap 7 mmol/L (6-16); Blood Urea Nitrogen 35 mg/dL (8-24); Bun/Creatinine Ratio 13.9 (12.0-20.0); CO2, Blood 25 mmol/L (21-32); Calcium, Blood 9.4 mg/dL (8.5-10.1); Chloride, Blood 108 mmol/L (98-108); Creatinine, Blood 2.52 mg/dL (0.60-1.20); Glomerular Filtration Rate 26 (60-); Glucose, Blood 142 mg/dL (70-99); Phosphorus, Blood 5.4 mg/dL (2.5-4.9); Sodium, Blood 140 mmol/L (136-145)
== END | disposition home or self-care (01) ==
LOC: LAB 14:45 → LAB SHORT 14:45
PROVIDERS: Internal Medicine Nephrology
DX: N18.30 Chronic kidney disease, stage 3 unspecified (principal); E29.1 Testicular hypofunction; E55.9 Vitamin D deficiency, unspecified
CPT/HCPCS: 80069; 83036; 83970; 85018

== ENCOUNTER → 2023-08-12 | Outpatient (CLI) | payer OTHER ==
[~2023-08-12] MED LIST changes: +ACET325 PO; +CIPR500 PO; +ELIQUIS5 M2 PO; +KLOR-CON 1010 ME9 PO; +METO50 PO; +MIRALAX17 GM PO; +OXYC5 PO; +POTCHL20ER PO; +SODBIC650 PO; +TAMS.4ER PO
[2023-08-12 19:54] LABS: Magnesium, Blood 2.4 mg/dL (1.6-2.4)
[2023-08-12 19:58] LABS: Bun/Creatinine Ratio 11.7 (12.0-20.0); Calcium, Blood 9.6 mg/dL (8.5-10.1); Creatinine, Blood 4.1 mg/dL (0.60-1.20)
== END | disposition home or self-care (01) ==
LOC: LAB SHORT 17:48 → LAB 17:48
PROVIDERS: Hospitalist
DX: E87.6 Hypokalemia (principal)
CPT/HCPCS: 80048; 83735

== ENCOUNTER 2023-09-07 11:50 | Inpatient (IN) | payer OTHER ==
[~2023-09-07] VITALS: Ht 167.6 cm; Wt 103.4 kg
[~2023-09-07 11:50] MED LIST changes: +ELIQUIS2.5 MG PO; -ELIQUIS5 M2 PO; +METO25 PO; -METO50 PO
[2023-09-07 15:11] LABS: BASOPHILS PERCENT AUTO 1 % (0-2); EOSINOPHILS ABSOLUTE AUTO 0.13 K/mm3 (0.00-0.68); EOSINOPHILS PERCENT AUTO 1 % (0-6); Hematocrit 47.9 % (37.0-53.0); Hemoglobin 15.7 g/dL (13.5-17.5); IMMATURE GRAN PERCENT AUTO 1 % (0-1); LYMPHOCYTES ABSOLUTE AUTO 1.62 K/mm3 (0.84-5.20); LYMPHOCYTES PERCENT AUTO 13 % (21-46); MONOCYTES ABSOLUTE AUTO 0.95 K/mm3 (0.16-1.47); MONOCYTES PERCENT AUTO 8 % (4-13); Mean Corpuscular HGB 31.8 pg (26.0-34.0); Mean Corpuscular HGB Conc 32.8 g/dL (31.5-36.5); Mean Corpuscular Volume 97 fL (80-100); Mean Platelet Volume 11.5 fL (9.1-12.4); NEUTROPHILS ABSOLUTE AUTO 9.72 K/mm3 (1.96-9.15); NEUTROPHILS PERCENT AUTO 77 % (41-73); Platelet Count 284 K/mm3 (150-400); RDW Coefficient Variation 15.9 % (11.7-14.2); RDW Standard Deviation 57.4 fL (35.1-46.3); Red Blood Cell Count 4.93 M/mm3 (4.30-5.90); White Blood Cell Count 12.62 K/mm3 (4.00-11.30)
[2023-09-07 15:24] LABS: Albumin, Blood 2.6 g/dL (3.4-5.0); Albumin/Globulin Ratio 0.5 (0.8-1.8); Bilirubin, Total 0.5 mg/dL (0.1-1.0); Bun/Creatinine Ratio 14.7 (12.0-20.0); Calcium, Blood 8.8 mg/dL (8.5-10.1); Creatinine, Blood 4.62 mg/dL (0.60-1.20); Globulin, Blood 5.2 g/dL (2.2-4.0); Potassium, Blood 5.8 mmol/L (3.5-5.5); Total Protein, Blood 7.8 g/dL (6.4-8.2)
[2023-09-07] MEDS ORDERED: Ondansetron HCl 2 MG / ML 2ML Vial IV PRN (18:10)
[2023-09-07] MEDS ORDERED: Heparin Sodium 1000 Units/ML 10ML MDV ONE (19:25)
[2023-09-07] MEDS ORDERED: NS 250 ML IV ONE (19:26)
[2023-09-07] MEDS ORDERED: Midazolam HCl 1MG / ML 2ML Vial ONE (19:35)
[2023-09-07] MEDS ORDERED: FentaNYL Citrate 50 MCG/ML 2 ML Injection ONE (19:35)
[2023-09-07] MEDS ORDERED: NS 500 ML IV ONE (19:36)
[2023-09-07] MEDS ORDERED: Heparin Sodium 10,000 Units/ML 1ML MDV ONE (20:05)
--- NOTE | 2023-09-07 22:15 | NUR ---
PT IS ALERT AND ORIENTED X 4, COOPERATIVE WITH CARE AND ABLE TO MAKE NEEDS KNONW. PT'S SAID THAT AFTER HE HAD TWO STROKES HIS MENTATION HAS CHANGED AND HE IS FORGETFUL AT TIMES AND OCCASIONALLY HAS ANGER ISSUES WHICH SHE SAID HE NEVER HAD PRIOR TO THE STROKES. PT HAS BEEN QUIET AND BARELY TALKING SINCE HE ARRIVED, PT'S SAID THAT IS HOW HE HAS BEEN LATELY. PTS SAID THAT PT SPENDS THE MAJORITY OF HIS TIME SITTING IN A CHAIR AT HOME AND GETS UP WITH WALKER OCCASIONALLY TO GO INTO THE KITCHEN. PT SAID THAT HE HAS INTERMITTENT INCONTINENCE AND HE BELIEVES THAT HIS URINE OUTPUT HAS DECREASED. ATTENDS IN PLACE AND CHANGED PRN. PT AND PT'S SAID THAT HE HAS BEEN ABLE TO EAT OR DRINK VERY MUCH LATELY. PT HAS HX CKD STAGE 4. PERMCATH PLACED TO UPPER RIGHT CHEST WALL BEFORE PT ARRIVED TO UNIT. NO BLEEDING OF SITE AND DRESSING C/D/I. PER APOLLO'S NOTE, PT DUE TO BE NPO AT MIDNIGHT. EDEMA AND DISCOLORATION OF BLE NOTED, WHICH SAID IS NORMAL FOR PT. IV TO R FA IS FLUSHED AND PATENT. PT'S SAID THAT PT HAS BEEN EXPERIENCING ABD PAIN AND ALL OVER PAIN LATELY. PT DENIES PAIN AT THIS TIME. PT RESTING IN BED AND WATCHING TV. CALL LIGHT WITHIN REACH.
[2023-09-07 22:30] VITALS: BP 130/89
[2023-09-07 23:00] VITALS: BP 116/69
[2023-09-07] MEDS ORDERED: Bumetanide 0.25 MG/ML 10ML Vial IV ONE (23:05)
[2023-09-07] MEDS ORDERED: Sodium Zirconium Cyclosilicate 10 GM Packet PO ONE (23:05)
[2023-09-07] MEDS ORDERED: Acetaminophen 325 MG TABLET PO PRN (23:30)
[2023-09-08] VITALS (22 sets, daily range): BP systolic 79–127; BP diastolic 48–85
[2023-09-08 04:10] LABS: BASOPHILS ABSOLUTE AUTO 0.07 K/mm3 (0.00-0.23); BASOPHILS PERCENT AUTO 1 % (0-2); EOSINOPHILS ABSOLUTE AUTO 0.12 K/mm3 (0.00-0.68); EOSINOPHILS PERCENT AUTO 1 % (0-6); Hematocrit 45.3 % (37.0-53.0); Hemoglobin 14.3 g/dL (13.5-17.5); IMMATURE GRAN ABSOLUTE AUTO 0.08 K/mm3 (0.00-0.10); IMMATURE GRAN PERCENT AUTO 1 % (0-1); LYMPHOCYTES ABSOLUTE AUTO 1.27 K/mm3 (0.84-5.20); LYMPHOCYTES PERCENT AUTO 11 % (21-46); MONOCYTES ABSOLUTE AUTO 1.04 K/mm3 (0.16-1.47); MONOCYTES PERCENT AUTO 9 % (4-13); Mean Corpuscular HGB Conc 31.6 g/dL (31.5-36.5); Mean Corpuscular Volume 98 fL (80-100); Mean Platelet Volume 10.5 fL (9.1-12.4); NEUTROPHILS PERCENT AUTO 78 % (41-73); Platelet Count 211 K/mm3 (150-400); RDW Standard Deviation 57.5 fL (35.1-46.3); Red Blood Cell Count 4.61 M/mm3 (4.30-5.90); White Blood Cell Count 11.58 K/mm3 (4.00-11.30)
[2023-09-08 04:30] LABS: Albumin, Blood 2.3 g/dL (3.4-5.0); Albumin/Globulin Ratio 0.5 (0.8-1.8); Bilirubin, Total 0.5 mg/dL (0.1-1.0); Bun/Creatinine Ratio 15.3 (12.0-20.0); Calcium, Blood 8.2 mg/dL (8.5-10.1); Creatinine, Blood 4.7 mg/dL (0.60-1.20); Globulin, Blood 4.5 g/dL (2.2-4.0); Magnesium, Blood 2.5 mg/dL (1.6-2.4); Phosphorus, Blood 5.2 mg/dL (2.5-4.9); Potassium, Blood 5.4 mmol/L (3.5-5.5); Total Protein, Blood 6.8 g/dL (6.4-8.2)
--- NOTE | 2023-09-08 05:34 | NUR ---
NO ACUTE CHANGES, SEE PREVIOUS NOTE.
[2023-09-08] MEDS ORDERED: Insulin Human Lispro 100 Units/ML 3ML Syringe SC SCH (07:30)
[2023-09-08] MEDS ORDERED: Anticoagulant Sod Citrate Soln 3 ML SYR INJ PRN (07:40)
[2023-09-08] MEDS ORDERED: Bumetanide 1 MG Tab PO SCH (09:00)
[2023-09-08] MEDS ORDERED: Metoprolol Tartrate 25 MG Tab PO SCH (09:00)
[2023-09-08] MEDS ORDERED: Apixaban 5 MG Tab PO SCH (09:00)
[2023-09-08] MEDS ORDERED: Tamsulosin HCl 0.4 MG Cap PO SCH (09:00)
--- NOTE | 2023-09-08 09:21 | NUR ---
ASSUMED CARE OF PT THIS AM AT 0700. NO ACUTE CHANGES REPORTED OVERNIGHT. SEE DOCUMENTED VS AND ASSESSMENT. PT MEDICATED FOR 6/10 ABD PAIN PER EMAR. PT REMAINS NPO AT THIS TIME. PT TRANSPORTED TO HD VIA BED AT 0830.
--- NOTE | 2023-09-08 12:40 | NUR ---
PT RETURNED FROM DIALYSIS AT APROX 1100. 500ML FLUID OFF AND PT TOLERATED WELL PER PLASTICS PRODUCTION MACHINE OPERATOR REPORT. PT RETURNED TO ROOM [id number] VIA BED WITH AT BEDSIDE. PT/ DENY NEEDS AT THIS TIME. CALL LIGHT IN REACH. WILL CONTINUE TO MONITOR.
[2023-09-08] MEDS ORDERED: Miconazole Nitrate 2% 85 GM PWD TOP SCH (13:30)
--- NOTE | 2023-09-08 13:32 | NUR ---
PT PROVIDED WITH BED BATH AND CHANGE OF ATTENDS. STAGE 1 PRESSURE ULCER NOTED TO L LOWER BUTTOCK, NON-BLANCHING, PURPLE DISCOLORATION, NO OPEN AREAS. CLEANSED AND MEPLEX APPLIED FOR PADDING, PT INFORMED OF NEED FOR Q 2 TURNS AND SKIN CARE. REDNESS AND FOUL ODOR NOTED TO PANNUS AND GROIN AREA, APPEARS TO BE YEAST LIKE. SKIN CLEANSED AND ALLOWED TO AIR DRY. REDNESS, SWELLING AND OPEN SKIN NOTED TO FEDETEKATELYN CLEF, CLEANSED AND BARRIER CREAM APPLIED. THIS RN CONTACTED DR NAJERA AND INFORMED HER OF THE PT'S WOUNDS AND C/O L SIDED ABD PAIN, MORE SEVERE WITH ROLLING AND TURNING IN BED. PT STATES "I FEEL MISERABLE, JUST MISERABLE." NEW ORDERS RECEIVED. PT'S AT BEDSIDE. CALL LIGHT IN REACH. WILL CONTINUE TO MONITOR.
[2023-09-08] MEDS ORDERED: FentaNYL Citrate 50 MCG/ML 2 ML Injection IV PRN (13:35)
[2023-09-08] MEDS ORDERED: Midodrine 5 MG Tab PO SCH (14:55)
--- NOTE | 2023-09-08 18:12 | NUR ---
AFTER FENTANYL WAS ADMINISTERED FOR PAIN, PT REQUIRED SUPPLEMENTAL O2 AT 2L VIA NC TO MAINTAIN SP02>92%. PT ALSO BECAME MORE ANXIOUS AND AGITATED, PT REFUSING CT SCAN "BECAUSE I DON'T WANT TO MOVE, IT WILL HURT." PT'S AT BEDSIDE ENCOURAGING HIM TO HAVE CT SCAN FOR HIS ABD PAIN, PT CONTINUES TO REFUSE. CT SCAN ORDER D/C'D. PT'S HR NOTED TO BE ELEVATED 120-150s DURING THIS EPISODE OF AGITATION. DR NAJERA NOTIFIED AND MADE AWARE OF THESE CHANGES. PT'S STATES THE PT HAS HAD THIS REACTION TO [facility] IN THE PAST AND WOULD LIKE IT ADDED TO PT'S ADR LIST. [facility] ORDER D/C'D AND ADDED DRUG TO ADRs. OTHERWISE, NO CHANGES SINCE LAST NOTE. PT WITH POOR APPETITE, ASSISTING HIM WITH MEALS. PT IS ABLE TO MAKE NEEDS KNOWN AND USE CALL LIGHT. BED IN LOWEST, LOCKED POSITION. WILL CONTINUE TO MONITOR AND GIVE REPORT TO NOC SHIFT RN.
[2023-09-09] VITALS (18 sets, daily range): BP systolic 80–111; BP diastolic 43–74
[2023-09-09 04:06] LABS: BASOPHILS ABSOLUTE AUTO 0.07 K/mm3 (0.00-0.23); BASOPHILS PERCENT AUTO 1 % (0-2); EOSINOPHILS ABSOLUTE AUTO 0.26 K/mm3 (0.00-0.68); EOSINOPHILS PERCENT AUTO 3 % (0-6); IMMATURE GRAN ABSOLUTE AUTO 0.07 K/mm3 (0.00-0.10); IMMATURE GRAN PERCENT AUTO 1 % (0-1); LYMPHOCYTES ABSOLUTE AUTO 1.34 K/mm3 (0.84-5.20); LYMPHOCYTES PERCENT AUTO 14 % (21-46); MONOCYTES ABSOLUTE AUTO 0.86 K/mm3 (0.16-1.47); MONOCYTES PERCENT AUTO 9 % (4-13); Mean Corpuscular HGB 31.3 pg (26.0-34.0); Mean Corpuscular HGB Conc 32.6 g/dL (31.5-36.5); Mean Corpuscular Volume 96 fL (80-100); Mean Platelet Volume 10.9 fL (9.1-12.4); NEUTROPHILS PERCENT AUTO 73 % (41-73); Platelet Count 209 K/mm3 (150-400); RDW Standard Deviation 56.7 fL (35.1-46.3); Red Blood Cell Count 4.47 M/mm3 (4.30-5.90)
[2023-09-09 04:32] LABS: Albumin, Blood 2.1 g/dL (3.4-5.0); Anion Gap 16 mmol/L (3-11); Blood Urea Nitrogen 48 mg/dL (8-24); Bun/Creatinine Ratio 12.2 (12.0-20.0); CO2, Blood 21 mmol/L (21-32); Calcium, Blood 7.7 mg/dL (8.5-10.1); Chloride, Blood 101 mmol/L (98-108); Creatinine, Blood 3.93 mg/dL (0.60-1.20); Glomerular Filtration Rate 15 (60-); Glucose, Blood 98 mg/dL (70-99); Magnesium, Blood 2.3 mg/dL (1.6-2.4); Phosphorus, Blood 5.2 mg/dL (2.5-4.9); Potassium, Blood 4.2 mmol/L (3.5-5.5); Sodium, Blood 134 mmol/L (136-145)
--- NOTE | 2023-09-09 06:03 | NUR ---
SHIFT SUMMARY THIS RN ASSUMED CARE OF PATIENT AT 1900. A&O. ABLE TO MAKE NEEDS KNOWN. REPORTS FEELING TIRED AFTER DIALYSIS. BP STABLE. SR/ST WITH HR 90-110'S. AFEBRILE. REPOSITIONING Q2HRS. PT MEDICATED PER EMAR FOR BACK PAIN. MEDICATED X1 FOR NAUSEA. MEPILEX ON BUTTOCK. INCONTINENT/CONTINENT OF URINE. PERMCATH ON RT CHEST WALL WNL, DRESSING C/D/I, MILD TENDERNESS WITH PALPATION. ANTIFUNGAL POWDER APPLIED TO FOLDS. ELEVATED HEELS WITH PILLOW. BED IN LOWEST POSTIION AND CALL LIGHT WITHIN REACH. THIS RN WILL REPORT TO ONCOMING DAYSHIFT RN.
[2023-09-09] MEDS ORDERED: Anticoagulant Sod Citrate Soln 3 ML SYR INJ PRN (07:30)
--- NOTE | 2023-09-09 10:22 | NUR ---
ASSUMED CARE OF PT AT 0700 THIS AM. NO ACUTE CHANGES REPORTED OVERNIGHT. PT TO HD AT 0835. SEE DOCUMENTED VITAL SIGNS AND ASSEESSMENT. WILL CONTINUE TO MONITOR.
--- NOTE | 2023-09-09 13:09 | NUR ---
PT RETURNED TO ROOM [id number] FROM HD AT APROX 1130. PT'S AT BEDSIDE. PT TOLERATED HD WELL PER REPORT. NO ACUTE CHANGES. PT HAS NO COMPLAINTS AT THIS TIME, HE APPEARS MORE AWAKER AND ALERT THAN YESTERDAY. PT IS ABLE TO USE CALL LIGHT FOR NEEDS, CALL LIGHT IN REACH. WILL CONTINUE TO MONITOR.
[2023-09-09] MEDS ORDERED: Midodrine 5 MG Tab PO SCH (14:00)
--- NOTE | 2023-09-09 16:08 | NUR ---
Pt. is awake in bed and welcomes my visit. Pt. is pleasant. Spouse is at bedside. Facilitate a life review and Pt. verbalizes that he is a man of mesha, but that he hasn't been part of a mandaen since his family moved when he was a child. Consider matters of mesha and belief. Pt. is unsettled about his hospitilization and verbalizes his desire to "get out of bed." Normalize the Pt. experience. Pt. displays evidence of understanding and being engaged. Pt. welcomes prayer. Prayed with Pt. Pt. 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
--- NOTE | 2023-09-09 17:45 | NUR ---
NO ACUTE CHANGES T/O THE SHIFT. PT LOOKS MUCH BETTER THAN YESTERDAY, HE IS NO LONGER PALE, LETHARGIC AND PAINFUL. PT IS MORE AWAKE AND CONVERSANT WITH HIS AND STAFF. NO COMPLAINTS OR CONCERNS AT THIS TIME. LOW URINE OUTPUT TODAY, LIKELY RELATED TO HD. PT IS ABLE TO MAKE NEEDS KNOWN AND USE CALL LIGHT, CALL LIGHT IN REACH. WILL CONTINUE TO MONITOR AND GIVE REPORT TO NOC SHIFT RN.
[2023-09-09 20:13] LABS: HEPATITIS A ANTIBODY, IGM Negative (Negative); HEPATITIS B CORE ANTIBODY, IGM Negative (Negative); HEPATITIS B SURFACE ANTIGEN Negative (Negative); HEPATITIS C AB CIA INTERP Negative (Negative); HEPATITIS C ANTIBODY CIA INDEX 0.06 IV
--- NOTE | 2023-09-09 20:51 | NUR ---
ASSUMPTION OF CARE THIS RN ASSUMED CARE OF PATIENT AT 1900. PT A&O X4. ABLE TO MAKE NEEDS KNOWN. SBP 90'S. ST WITH HR 100-110'S, PAROXYSMAL AFIB NOTED FOR SHORT PERIODS. AFEBRILE. PT SLEEPING AFTER SHIFT CHANGE AND ON 2L VIA NC WITH SPO2 >92%. PT EDUCATED ON PT/OT EVAL PRIOR TO DISCHARGE. PT TO BE TRANSFERRED TO MEDICAL FLOOR. THIS RN GAVE REPORT TO THERESA SCHILLING WHO WILL ASSUME CARE OF PATIENT AFTER TRANSFER TO [facility]. PT EDUCATED ON TRANSFER PROCESS. BED IN LOWEST POSITION AND CALL LIGHT WITHIN REACH.
--- NOTE | 2023-09-09 22:44 | NUR ---
PATIENT TRANSFERED TO ROOM 362 FROM [facility]; ARRIVED AT 2105. PT A/OX3. REPORT RECEIVED FROM LAIDA. CHART NOT WITH PATIENT. TO SMALL BELONGINGS BAGS. ONE WITH TOILETRIES AND THE OTHER WITH PERSONAL CLOTHING. SHIFT ASSESSMENT NOT COMPLETE PRIOR TO XFER.
[2023-09-10] VITALS (7 sets, daily range): BP systolic 92–125; BP diastolic 57–67
[2023-09-10 05:17] LABS: BASOPHILS ABSOLUTE AUTO 0.06 K/mm3 (0.00-0.23); BASOPHILS PERCENT AUTO 1 % (0-2); EOSINOPHILS ABSOLUTE AUTO 0.29 K/mm3 (0.00-0.68); EOSINOPHILS PERCENT AUTO 3 % (0-6); Hematocrit 41.9 % (37.0-53.0); Hemoglobin 13.6 g/dL (13.5-17.5); IMMATURE GRAN ABSOLUTE AUTO 0.08 K/mm3 (0.00-0.10); IMMATURE GRAN PERCENT AUTO 1 % (0-1); LYMPHOCYTES ABSOLUTE AUTO 1.34 K/mm3 (0.84-5.20); LYMPHOCYTES PERCENT AUTO 15 % (21-46); MONOCYTES ABSOLUTE AUTO 0.88 K/mm3 (0.16-1.47); MONOCYTES PERCENT AUTO 10 % (4-13); Mean Corpuscular HGB 31.8 pg (26.0-34.0); Mean Corpuscular HGB Conc 32.5 g/dL (31.5-36.5); Mean Corpuscular Volume 98 fL (80-100); Mean Platelet Volume 11.2 fL (9.1-12.4); NEUTROPHILS ABSOLUTE AUTO 6.47 K/mm3 (1.96-9.15); NEUTROPHILS PERCENT AUTO 71 % (41-73); Platelet Count 205 K/mm3 (150-400); RDW Coefficient Variation 16.1 % (11.7-14.2); RDW Standard Deviation 58.1 fL (35.1-46.3); Red Blood Cell Count 4.28 M/mm3 (4.30-5.90); White Blood Cell Count 9.12 K/mm3 (4.00-11.30)
[2023-09-10 05:51] LABS: Albumin, Blood 1.9 g/dL (3.4-5.0); Anion Gap 12 mmol/L (3-11); Blood Urea Nitrogen 36 mg/dL (8-24); Bun/Creatinine Ratio 10.3 (12.0-20.0); CO2, Blood 27 mmol/L (21-32); Calcium, Blood 7.8 mg/dL (8.5-10.1); Chloride, Blood 102 mmol/L (98-108); Glomerular Filtration Rate 17 (60-); Glucose, Blood 143 mg/dL (70-99); Magnesium, Blood 2.2 mg/dL (1.6-2.4); Phosphorus, Blood 4.2 mg/dL (2.5-4.9); Potassium, Blood 3.9 mmol/L (3.5-5.5); Sodium, Blood 137 mmol/L (136-145)
[2023-09-10] MEDS ORDERED: Anticoagulant Sod Citrate Soln 3 ML SYR INJ PRN (07:05)
[2023-09-10] MEDS ORDERED: Megestrol Acetate Susp 400MG/10ML UDC PO SCH (07:30)
[2023-09-10] MEDS ORDERED: Albumin (Human) 25gm/100ml 100 ML IV PRN (07:50)
[2023-09-10 11:53] LABS: HEPATITIS B SURFACE ANTIBODY <3.10 IU/L
--- NOTE | 2023-09-10 16:09 | NUR ---
Pt. is awake in bed when he welcomes my visit. Pt. is eating some Jello as I facilitate an update of the Pts. progress. Pt. verbalizes that he had dialysis today and that he feels a little wiped out. Listen with empathy and a calming presence. Pt. also verbalizes an expectation that he may be able to go home before the end of the weekend. Prayed with Pt. Pt. verbalized gratitude for both spiritual care visits (yesterday and today).
[2023-09-10] MEDS ORDERED: Protein Supplement 30 ML UD PO SCH (21:00)
[2023-09-11 03:55] VITALS: BP 101/64
--- NOTE | 2023-09-11 06:09 | NUR ---
Shift Summary Pt hypotensive at the 193, BP 92/61. I medicated him with scheduled Midodrine at 1999, at 2099 his BP was 125/67 and he was given scheduled metoprolol at that time. Pt c/o of painful back and generalized pain t/o the shift. Repositioned Q2 or more depending on pt's requests. Incontinent voids and BM, attends changed PRN. Pt has a difficult time getting comfortable. He was given Tylenol for pain per EMAR. After repositioning pt was able to sleep comfortably for about 2 hours at a time. He is AOx4, cooperative with care. He remained in bed t/o the shift.
[2023-09-11 07:37] VITALS: BP 99/69
--- NOTE | 2023-09-11 08:13 | NUR ---
UPON ARRIVAL TO TAKE VITALS, PATIENT WOKE UP IN PAIN. ASKED TO BE REPOSITIONED. PLACED A PILLOW UNDER ONE HIP AND RAISED HIS HEAD FAR HE WANTED. TEN MINUTES LATER HE PRESSED THE CALL LIGHT THAT HE WAS IN PAIN AND STATES HE WAS NEVER REPOSITIONED AND THAT HE WANTED HIS HEAD UP [HE HAD LOWERED HIS OWN HEAD]. I PLACED PILLOW UNDER THE OTHER HIP, FLOATING HIS HIPS, RAISED HIS HEAD UNTIL HE TOLD ME TO STOP.
[2023-09-11] MEDS ORDERED: Vitamin B Cmplx/Vit C/Folic Ac 1 Tab PO SCH (09:00)
--- NOTE | 2023-09-11 10:26 | NUR ---
OFFERED PATIENT REPOSITIONING, PRESENT, STATED SHE HAS BEEN MOVING HIM. i OFFERED THE PATIENT A HEATING PAD FOR HIS BACK; DECLINED. DOCTOR TOLD THE NURSE AND I TO GET HIM IN A CHAIR FOR LUNCH. PATIENT DECLINED. STATED THAT YESTERDAY, THEY TRIED TO GET HIM UP BUT HIS HEART RATE DROPPED AND HAD HIM LAY BACK DOWN. I HAD NOT HEARD THIS NOR DID THE DOCTOR SEEMED TO BE AWARE.
[2023-09-11 13:04] VITALS: BP 100/68; BP 88/60
--- NOTE | 2023-09-11 14:33 | NUR ---
DOWNTIME PAPER CHARTING DONE FOR ASSESSMENT DUE TO NOT BEING ABLE TO ACCESS INTERVENTIONS IN Dining Secretary.
[2023-09-11 16:39] VITALS: BP 99/61
--- NOTE | 2023-09-11 17:16 | NUR ---
SHIFT SUMMARY PT ADMITTED FOR [facility] AND HAD DIALYSIS YESTERDAY. PT AWAITING AN OUTPATIENT DIALYSIS CHAIR IN ORDER TO DISCHARGE. HE IS A STAND/PIVOT 2 ASSIST TO THE BSC. HE IS INCONT WITH ATTENDS IN PLACE. PT REPOSITIONED OFTEN DUE TO NOT BEING COMFORTABLE, BUT DOES NOT WANT TO GET UP. PT REPORTS SOME DIZZINES WHEN GETTING UP IN THE PAST. PT IS HYPOTENSIVE AND ON MIDODRINE. PT HAS AFIB AND PULSE IN 150'S AT TIMES. PHYSICIAN AWARE.
[2023-09-11 19:48] VITALS: BP 91/66
[2023-09-11] MEDS ORDERED: TraMADol HCl 50 MG Tab PO PRN (21:40)
[2023-09-12] VITALS (28 sets, daily range): BP systolic 81–161; BP diastolic 35–97
--- NOTE | 2023-09-12 04:53 | NUR ---
SHIFT SUMMARY LIZBETH WAS ALERT AND ORIENTED ON ASSESSMENT, BUT DROWSY. PT C/O GENERALIZED PAIN TO RIBS. TRAMADOL ADDED TO PT EMAR. PT TURNED Q2, SKIN BREAKDOWN NOTED ON PT GLUTEAL CLEFT. NO NOTED CHANGES TO PT CONDITION.
[2023-09-12 05:14] LABS: Hemoglobin 14.9 g/dL (13.5-17.5)
[2023-09-12] MEDS ORDERED: NS 1,000 ML IV SCH (05:40)
[2023-09-12 05:52] LABS: Albumin, Blood 2.1 g/dL (3.4-5.0); Anion Gap 16 mmol/L (3-11); Blood Urea Nitrogen 54 mg/dL (8-24); Bun/Creatinine Ratio 14.5 (12.0-20.0); CO2, Blood 26 mmol/L (21-32); Calcium, Blood 8.5 mg/dL (8.5-10.1); Chloride, Blood 97 mmol/L (98-108); Creatinine, Blood 3.72 mg/dL (0.60-1.20); Glomerular Filtration Rate 16 (60-); Glucose, Blood 177 mg/dL (70-99); Magnesium, Blood 2.3 mg/dL (1.6-2.4); Phosphorus, Blood 2.9 mg/dL (2.5-4.9); Potassium, Blood 3.9 mmol/L (3.5-5.5); Sodium, Blood 135 mmol/L (136-145)
[2023-09-12] MEDS ORDERED: Anticoagulant Sod Citrate Soln 3 ML SYR INJ PRN (07:20)
[2023-09-12] MEDS ORDERED: Digoxin 0.25 MG in Dextrose 5% 100 ML IV SCH (09:00)
[2023-09-12 10:42] LABS: Base Excess Venous 8.7 mmol/L; Bicarbonate Venous 30.1 mmol/L (24.0-30.0); PCO2 Venous 52.6 mmHg (38-42); pH Blood Venous 7.41 (7.34-7.37)
--- NOTE | 2023-09-12 10:53 | NUR ---
UPDATE/TRANSFER TP PCU BP SOFT WITH SBP 80-90's, MAP > 65, ASYMPTOMATIC. HR 120-140's, TELE UNSURE WHAT RHYTHM IS. NOTIFED PROVIDER, ORDERD PLACED. PT TO DIALYSIS AT APPROXIMATELY 0900. PT TRANSFERED VIA HOSPITAL BED. WHILE IN DIALYSIS, ORDERS PLACED TO TRANSFER TO PCU. REPORT GIVEN TO HOG KILLER, PT TO TRANSFER AFTER DIALYSIS IS FINISHED.
--- NOTE | 2023-09-12 18:50 | NUR ---
PT WAS TRANSFERED FROM [facility] THIS AFTERNOON FOR SOFT BPs AND INCREASE HR. HR HAS RAMAINED BETWEEN 110-130s, BP CONTINUES TO BE SOFT FOR THIS SHIFT. HE HAS MIDODRINE 10MG TID THAT HE IS TOLERATING WELL. PT AWAKENS TO VERBAL STIMULI, HE IS SLEEPY AFTER DIALYSIS. HE DENIES CP OR SOB. HE HAS TOLERATED DIGOXIN WELL DURING THIS SHIFT. IS AT BASELINE. PT DOES PRODUCE URINE EVEN POST DIALYSIS
--- NOTE | 2023-09-12 19:30 | NUR ---
ASSUMPTION OF CARE ASSUMED CARE OF PATIENT AT 1900. BEDSIDE SHIFT REPORT RECEIVED FROM DEVYN RN. PT RESTING IN BED, SLEEPING BUT AROUSABLE. PT ANSWERS QUESTIONS APPROPRIATELY, FOLLOWS DIRECTION WHEN PROMPTED AND IS ABLE TO MAKE NEEDS KNOWN. PT IS WEAK BUT ABLE TO MOVE EXTREMITIES EQUALLY BILATERALLY. PT AT THE BEDSIDE. HR 110-130'S SINUS, MAP >65. PT DENIES CP OR PRESSURE. PT ON 2L O2 VIA NC, OXYGEN SATURATION >92%. PT DENIES SOB OR DIFFICULTY BREATHING. ABDOMEN SOFT AND ROUND, BOWEL TONES ACTIVE IN ALL FOUR QUADRANTS. PT USES URINAL TO VOID, OCCASIONALLY INCONTINENT. PIV IN PLACE TO RFA SL. DIALYSIS CATHETER IN PLACE TO RIGHT CHEST. BED IN LOWEST POSITION, CALL LIGHT WITHIN REACH, CARE CONTINUES.
[2023-09-13] VITALS (19 sets, daily range): BP systolic 86–126; BP diastolic 48–92
[2023-09-13 04:18] LABS: BASOPHILS ABSOLUTE AUTO 0.09 K/mm3 (0.00-0.23); BASOPHILS PERCENT AUTO 1 % (0-2); EOSINOPHILS ABSOLUTE AUTO 0.27 K/mm3 (0.00-0.68); EOSINOPHILS PERCENT AUTO 3 % (0-6); Hematocrit 43.9 % (37.0-53.0); Hemoglobin 13.8 g/dL (13.5-17.5); IMMATURE GRAN ABSOLUTE AUTO 0.13 K/mm3 (0.00-0.10); IMMATURE GRAN PERCENT AUTO 1 % (0-1); LYMPHOCYTES ABSOLUTE AUTO 1.59 K/mm3 (0.84-5.20); LYMPHOCYTES PERCENT AUTO 15 % (21-46); MONOCYTES ABSOLUTE AUTO 0.88 K/mm3 (0.16-1.47); MONOCYTES PERCENT AUTO 8 % (4-13); Mean Corpuscular HGB 30.9 pg (26.0-34.0); Mean Corpuscular HGB Conc 31.4 g/dL (31.5-36.5); Mean Corpuscular Volume 98 fL (80-100); Mean Platelet Volume 11.2 fL (9.1-12.4); NEUTROPHILS ABSOLUTE AUTO 7.56 K/mm3 (1.96-9.15); NEUTROPHILS PERCENT AUTO 72 % (41-73); Platelet Count 161 K/mm3 (150-400); RDW Coefficient Variation 15.5 % (11.7-14.2); RDW Standard Deviation 56.3 fL (35.1-46.3); Red Blood Cell Count 4.46 M/mm3 (4.30-5.90); White Blood Cell Count 10.52 K/mm3 (4.00-11.30)
[2023-09-13 04:36] LABS: Magnesium, Blood 2.2 mg/dL (1.6-2.4)
[2023-09-13 04:37] LABS: Albumin, Blood 1.9 g/dL (3.4-5.0); Anion Gap 11 mmol/L (3-11); Blood Urea Nitrogen 46 mg/dL (8-24); Bun/Creatinine Ratio 13.6 (12.0-20.0); CO2, Blood 29 mmol/L (21-32); Calcium, Blood 8.2 mg/dL (8.5-10.1); Chloride, Blood 100 mmol/L (98-108); Creatinine, Blood 3.37 mg/dL (0.60-1.20); Glomerular Filtration Rate 18 (60-); Glucose, Blood 174 mg/dL (70-99); Phosphorus, Blood 2.8 mg/dL (2.5-4.9); Potassium, Blood 4.2 mmol/L (3.5-5.5); Sodium, Blood 136 mmol/L (136-145)
--- NOTE | 2023-09-13 05:13 | NUR ---
SHIFT SUMMARY NO ACUTE CHANGES THIS SHIFT. PT CONTINUES TO REST IN BED SLEEPING BUT AROUSABLE. PT ANSWERS QUESTIONS APPROPRIATELY, FOLLOWS DIRECTION WHEN PROMPTED AND IS ABLE TO MAKE HIS NEEDS KNOWN. PT IS WEAK BUT MOVES ALL EXTREMITIES EQUALLY BILATERALLY. HR 110-120'S SINUS, MAP >65. PT DENIES CP OR PRESSURE. PT ON 2LPM VIA NC, OXYGEN SATURATION >95%, PT DENIES SOB OR DIFFICULTY BRETHING. ABDOMEN SOFT, TENDER AT TIMES ON PALPATION. BOWEL TONES ACTIVE IN ALL FOUR QUADRANTS. PT USES URINAL TO VOID. PIV IN PLACE TO RFA SL. BED IN LOWEST POSITON, CALL LIGHT WITHIN REACHM, CARE CONTINUES.
--- NOTE | 2023-09-13 12:53 | NUR ---
SHIFT SUMMARY PT A&OX4. SP02>90% ON 2L NC AT REST, 3L W/ EXERTION. tELEMETRY SHOWS SINUS TACH, HR 100'S-130'S. MILD HYPOTENSION NOTED IN AM BUT IMPROVED, SEE VITALS. NO URINE OUTPUT. NO BM. PT ABLE TO WORK W/ PT AND OT THIS SHIFT, SAT ON SIDE OF BED WITH ENCOURAGEMENT. PT EDUCATED HOW IMPORTANT IT IS TO KEEP MOBILITY TO BE ABLE TO GO HOME. IN ROOM. PT RESTING IN BED. CALL LIGHT IN REACH. REPORT GIVEN TO TONIE BAUTISTA.
--- NOTE | 2023-09-13 14:11 | NUR ---
THIS NURSE TO ASSUME CARE OF THE PT AT 1300. REPORT RECIEVED FROM MADINA CARSON RN. PT IS UP IN THE CHAIR, DROWSY BUT ORIENTED X4, HE WAS RECIEVING A BEDBATH FROM THE SUPPLY COORDINATOR. HIS VS ARE STABLE. THE PT'S SP02 WAS 97% ON 3LNC. THE PT WAS TITRATIED DOWN TO 1.5L NC. HE DENIES ANY SOB, ANGINA. ON TELE HE IS ST 110'S. HIS HR TACH'S UP TO 150'S-160'S W/ ACTIVITY. THE PT WAS REPORTING SOME PAIN IN HIS RIGHT SIDE AND WAS MEDICATED PER EMAR BY RELIEF CHARGE TRISTAN. LORA. SEE NOTES FOR UPDATES.
--- NOTE | 2023-09-13 16:24 | NUR ---
THE PT WAS TITRAITED TO 1LNC. HE DOES DESATURATE TO THE MID 80'S WHEN ON RA. PT ASYMTOMATIC.
[2023-09-13] MEDS ORDERED: Apixaban 5 MG Tab PO SCH (21:00)
[2023-09-14] VITALS (19 sets, daily range): BP systolic 85–146; BP diastolic 57–93
[2023-09-14 04:09] LABS: Hematocrit 43.7 % (37.0-53.0); Hemoglobin 14.5 g/dL (13.5-17.5)
[2023-09-14 04:24] LABS: Albumin, Blood 1.8 g/dL (3.4-5.0); Anion Gap 15 mmol/L (3-11); Blood Urea Nitrogen 64 mg/dL (8-24); Bun/Creatinine Ratio 17.2 (12.0-20.0); CO2, Blood 24 mmol/L (21-32); Calcium, Blood 8.3 mg/dL (8.5-10.1); Chloride, Blood 98 mmol/L (98-108); Creatinine, Blood 3.73 mg/dL (0.60-1.20); Glomerular Filtration Rate 16 (60-); Glucose, Blood 172 mg/dL (70-99); Magnesium, Blood 2.2 mg/dL (1.6-2.4); Phosphorus, Blood 3.1 mg/dL (2.5-4.9); Potassium, Blood 4.3 mmol/L (3.5-5.5); Sodium, Blood 133 mmol/L (136-145)
--- NOTE | 2023-09-14 06:41 | NUR ---
SHIFT SUMMARY PATIENT ALERT AND ORIENTED X4. HAD NO COMPLAINTS OF PAIN OR SHORTNESS OF BREATH. CURRENTLY ON 2 LITERS O2 VIA NC TO HELP MAINTAIN SPO2 >90%. VITAL SIGNS STABLE, SINUS TACH ON TELE. NO ACUTE ISSUES NOTED OVERNIGHT. WILL CONTINUE TO MONITOR. CALL LIGHT WITHIN REACH.
[2023-09-14] MEDS ORDERED: Albumin (Human) 25gm/100ml 100 ML IV PRN (07:50)
[2023-09-14] MEDS ORDERED: Anticoagulant Sod Citrate Soln 3 ML SYR INJ PRN (07:50)
[2023-09-14] MEDS ORDERED: Digoxin 0.125 MG Tab PO SCH (09:00)
--- NOTE | 2023-09-14 09:34 | NUR ---
AM NOTE... ASSUMED CARE OF PT AT 0700, PT IS A&Ox4 BUT NOTED TO BE LETHARGIC. PT IS IN AFIB 110'S-130'S BP IS STABLE WITH MAPS>65 AT THIS TIME. PT IS ON 2L NC WITH O2 SATS>95% L/S CLEAR T/O DIM IN THE BASES. PT IS TO HAVE DIALYSIS THIS AM. WILL CONTINUE TO MONITOR.
[2023-09-14] MEDS ORDERED: DIGOX125 MC1 PO (11:46)
[2023-09-14] MEDS ORDERED: NEPHRO VITAMIN0.8 MG PO (11:46)
[2023-09-14] MEDS ORDERED: MIDODRINE HCL10 M3 PO (11:47)
[2023-09-14] MEDS ORDERED: Promod946 ML PO (11:48)
--- NOTE | 2023-09-14 13:42 | NUR ---
PT D/C HOME.... PT D/C HOME WITH AND HOME HEALTH. DISCHARGE EDUCATION PROVIDED TO THE IN WRITTEN AND VERBAL FORMAT. ALL PT AND 'S QUESTIONS ANSWERED TO THEIR SATISFACTION. ALL PT'S BELONGINGS WERE PACKED AND SENT WITH THE . PT'S IV REMOVED WNL.
== END 2023-09-14 13:40 | disposition home health service (06) | DRG 674 ==
LOC: ER 11:50 → PCU 11:51 → MEDS 09-09 21:00 → PCU 09-12 09:59
PROVIDERS: Family Medicine; Internal Medicine Nephrology; Physician Assistant; ADMIT Internal Medicine
PROC: 0JH63XZ Insertion of Tunneled Vascular Access Device into Chest Subcutaneous Tissue and Fascia, Percutaneous Approach (ICD-10-PCS; principal; 2023-09-07)
PROC: 02HV33Z Insertion of Infusion Device into Superior Vena Cava, Percutaneous Approach (ICD-10-PCS; 2023-09-07)
PROC: 5A1D70Z Performance of Urinary Filtration, Intermittent, Less than 6 Hours Per Day (ICD-10-PCS; 2023-09-07)
DX: N17.9 Acute kidney failure, unspecified (principal); E87.1 Hypo-osmolality and hyponatremia; I13.2 Hypertensive heart and chronic kidney disease with heart failure and with stage 5 chronic kidney disease, or end stage renal disease; E87.20 Acidosis, unspecified; N18.6 End stage renal disease; N25.81 Secondary hyperparathyroidism of renal origin; E87.5 Hyperkalemia; I48.0 Paroxysmal atrial fibrillation; E11.22 Type 2 diabetes mellitus with diabetic chronic kidney disease; Z68.36 Body mass index [BMI] 36.0-36.9, adult; E88.09 Other disorders of plasma-protein metabolism, not elsewhere classified; D63.1 Anemia in chronic kidney disease; G47.33 Obstructive sleep apnea (adult) (pediatric); E66.9 Obesity, unspecified; Z79.01 Long term (current) use of anticoagulants; Z79.4 Long term (current) use of insulin; Z88.0 Allergy status to penicillin; Z88.8 Allergy status to other drugs, medicaments and biological substances; Z79.899 Other long term (current) drug therapy; Z99.2 Dependence on renal dialysis; E78.00 Pure hypercholesterolemia, unspecified; R10.9 Unspecified abdominal pain
CPT/HCPCS: 36415; 36561; 76937; 80053; 80069; 80074; 82803; 82947; 83735; 83880; 84100; 85014; 85018; 85025; 93308; 93321; 94760; 94761; 94762; 96374; 96375; 97163; 97165; 97530; 99152; 99153; 99285-25; A9270; C1750; C1769; C1894; G0378; J1160; J1644; J2250; J2405; J3010; J7030; J7040; J7050; P9047